=== PATIENT | male | born 1930 | race Caucasian/White ===

== ENCOUNTER 2017-09-03 14:24 | Emergency (ER) | payer OTHER ==
[~2017-09-03 14:24] MED LIST: ASPI325T PO; DONE5TAB7 PO; ENAL5TAB PO; GABA300C5 PO; PRAV40TA PO; TAMS5CAP PO; TIMO5SOL LEFT EYE
[2017-09-03 14:26] VITALS: BP 188/87; PULSE 78; RESP 18; TEMP 97.8; O2SAT 96
--- NOTE | 2017-09-03 14:39 | PD ---
Physical Exam Date Seen by Provider: Sep 03, 2017 Time Seen by Provider: 14:38 Narrative 86 yo male here for "bump" to his back. Bleeding per patient, no injury. No fevers, chills or sweats. has another one on the left ear he wants looked into. He has been "picking" at them. Vitals stable in triage. Awaiting bed placement. Data Data Last Documented VS Vital Signs Date Time Temp Pulse Resp B/P (MAP) Pulse Ox O2 Delivery O2 Flow Rate FiO2 09/03/17 14:26 97.8 78 18 188/87 (120) 96 Room Air [facility] Medical Record Reviewed: Yes Supervised Visit with APARNA: No Brian Cain Sep 03, 2017 14:39
[2017-09-03] MEDS ORDERED: TIMO0.5S30 LEFT EYE (14:46)
--- NOTE | 2017-09-03 14:49 | PD ---
HPI Chief Complaint: Skin Problem Time Seen by Provider: 14:44 Travel History International Travel<30 days: No Contact w/Intl Traveler<30days: No Traveled to known affect area: No History of Present Illness HPI 86-year-old male presents to the emergency department requesting evaluation of an area to his left mid back that occasionally bleeds when he catches on his shirt and requesting a skin lesion to his left ear to be cut off. He cannot verify how long either areas have been there. Says the lesions to his left ear bothers him when he sleeps. No known relieving factors. Denies fever, vomiting. Has no other medical complaints. [facility] is his primary care provider. No known allergies. No other modifying factors or associated signs and symptoms. PFSH Past Medical History Hx Anticoagulant Therapy: Yes (ASA) Anemia: Yes Arthritis: Yes Asthma: No Blood Disorders: No Bipolar Disorder: Yes Anxiety: No Depression: Yes Heart Rhythm Problems: Yes Cancer: No Cardiovascular Problems: Yes (HTN) High Cholesterol: Yes Chest Pain: No Congestive Heart Failure: No COPD: No Cerebrovascular Accident: Yes Dementia: Yes Diabetes: No Diminished Hearing: No Endocrine: No Gastrointestinal Disorders: Yes Genitourinary: Yes (UTI) Headaches: Yes Hepatitis: No Hiatal Hernia: No Hypertension: Yes Immune Disorder: No Musculoskeletal: Yes (2 BACK SURGERIES IN THE PAST.) Neurologic: No Psychiatric: No Reproductive: No Respiratory: No Immunizations Current: Yes Migraines: No Myocardial Infarction: No Seizures: No Sleep Apnea: No Thyroid Disease: No Ulcer: No Past Surgical History Appendectomy: No Cholecystectomy: Yes Other Surgery: Yes (BACK SURGERY <20 YEARS AGO) Social History Alcohol Use: No Tobacco Use: No Substance Use: No Allergies-Medications (Allergen,Severity, Reaction): Coded Allergies: No Known Allergies (Verified , 09/03/17) Reported Meds & Prescriptions Reported Meds & Active Scripts Active Reported Timolol Opth Drops 0.5 % Soln 1 Drop LEFT EYE BID Pravachol (Pravastatin) 40 Mg Tab 40 Mg PO DAILY Flomax (Tamsulosin HCl) 0.4 Mg Cap 0.4 Mg PO HS Gabapentin 300 Mg Cap 300 Mg PO HS Donepezil 5 Mg Tab 5 Mg PO HS Enalapril (Enalapril Maleate) 5 Mg Tab 5 Mg PO DAILY Aspirin 325 Mg Tab 325 Mg PO DAILY Review of Systems Except as stated in HPI: all other systems reviewed are Neg Physical Exam Narrative GENERAL: Well-nourished, well-developed elderly, male patient, in no acute distress; afebrile, nontoxic-appearing SKIN: Warm and dry. Left mid back with small scabbed area; without erythema, edema, drainage. Left ear pinna with less than 0.5 cm skin lesion that is without erythema, edema, drainage. HEAD: Atraumatic. Normocephalic. EYES: Pupils equal and round. No scleral icterus. No injection or drainage. ENT: Mucosa pink and moist. Airway patent. NECK: Trachea midline. CARDIOVASCULAR: Regular rate. RESPIRATORY: No accessory muscle use. GASTROINTESTINAL: Rounded. MUSCULOSKELETAL: No obvious deformities. No clubbing. No cyanosis. No edema. NEUROLOGICAL: Awake and alert. Oriented 3. No obvious cranial nerve deficits. Motor grossly within normal limits. Normal speech. PSYCHIATRIC: Appropriate mood and affect; insight and judgment normal. Data Data Last Documented VS Vital Signs Date Time Temp Pulse Resp B/P (MAP) Pulse Ox O2 Delivery O2 Flow Rate FiO2 09/03/17 14:26 97.8 78 18 188/87 (120) 96 Room Air MDM Medical Decision Making Medical Screen Exam Complete: Yes Emergency Medical Condition: Yes Medical Record Reviewed: Yes Differential Diagnosis Skin lesion, skin carcinoma, scab Narrative Course 86-year-old male physical exam consistent with a skin lesion of his left ear and a scab to his left mid back. Patient is afebrile and nontoxic-appearing. His primary care is [employer]. Instructed patient to follow up with dermatology. Instructed patient to follow up with primary care provider. Patient verbalizes understanding and agreement with treatment plan. Patient is medically cleared and stable for discharge. Discussed reasons to return to the emergency department. Patient agrees with treatment plan. The patients vital signs are stable and the patient is stable for outpatient follow-up and treatment. Patient discharged home, stable and in no acute distress. Diagnosis Primary Impression: Skin lesion of left ear Additional Impression: Scab Referrals: [facility] Primary Care Physician Patient Instructions: General Instructions Additional Instructions: Put a Band-Aid over the scab on your back to avoid it catching on your shirt and causing bleeding Follow-up with primary care provider Follow-up with dermatology Return to the emergency department immediately with worsening of symptoms Disposition: 01 DISCHARGE HOME Condition: Stable Shirlene Gallardo Sep 03, 2017 14:49
== END 2017-09-03 15:05 | disposition home or self-care (01) ==
LOC: NEPK 14:24
DX: L98.9 Disorder of the skin and subcutaneous tissue, unspecified (principal); R23.4 Changes in skin texture; D64.9 Anemia, unspecified; I10 Essential (primary) hypertension; M19.90 Unspecified osteoarthritis, unspecified site; E78.00 Pure hypercholesterolemia, unspecified; F03.90 Unspecified dementia, unspecified severity, without behavioral disturbance, psychotic disturbance, mood disturbance, and anxiety; Z86.73 Personal history of transient ischemic attack (TIA), and cerebral infarction without residual deficits; Z79.82 Long term (current) use of aspirin
CPT/HCPCS: 99282

== ENCOUNTER 2017-12-14 18:06 | Inpatient (IN) | payer OTHER, MEDICARE ==
[~2017-12-14] VITALS: Ht 175.3 cm; Wt 73.3 kg
[~2017-12-14 18:06] MED LIST changes: +ASPI-183 PO; -ASPI325T PO; +TIMO0.5S30 LEFT EYE; -TIMO5SOL LEFT EYE
[2017-12-14 18:37] VITALS: BP 150/90; PULSE 110; RESP 16; TEMP 99.1; O2SAT 96
[2017-12-14] MEDS ORDERED: FERR325T18 PO (19:39)
[2017-12-14] MEDS ORDERED: DOCO300C (19:39)
[2017-12-14] MEDS ORDERED: OMEP20TA93 PO (19:39)
[2017-12-14 19:41] VITALS: BP 107/59; PULSE 102; RESP 16; O2SAT 96
--- NOTE | 2017-12-14 20:03 | PD ---
HPI Chief Complaint: General Weakness Time Seen by Provider: 19:50 Travel History International Travel<30 days: No Contact w/Intl Traveler<30days: No Traveled to known affect area: No History of Present Illness HPI The patient is an 87 year old male who presents to the [facility] emergency department with a history of generalized weakness and nausea that he reports began yesterday. He reports that he has had a mild nonproductive cough that began today. He reports that he last moved his bowels earlier today. He reports that today he began to have pain in the center of his abdomen. He reports that it is a dull aching sensation that is constant. He denies any alleviating or aggravating factors. He denies having any dysuria, change in urinary frequency or urgency. He is unsure whether he's had any fevers. He denies having any chest pain or shortness of breath. He denies having any blood in his stool or black or tarry stools. Otherwise on review of systems, the patient denies having any neck pain, vomiting, diarrhea, one-sided weakness , slurred speech, facial droop, difficulty with word finding ability, or dizziness. [facility] Past Medical History Narrative Medical The patient's past medical history is significant for hypertension, hyperlipidemia, benign prostatic hypertrophy, acid reflux, bipolar disorder, history of cataracts. Hx Anticoagulant Therapy: Yes (ASA) Anemia: Yes Arthritis: Yes Asthma: No Blood Disorders: No Bipolar Disorder: Yes Anxiety: No Depression: Yes Heart Rhythm Problems: Yes Cancer: No Cardiovascular Problems: Yes (HTN) High Cholesterol: Yes Chest Pain: No Congestive Heart Failure: No COPD: No Cerebrovascular Accident: Yes Dementia: Yes Diabetes: No Diminished Hearing: No Endocrine: No Gastrointestinal Disorders: Yes Genitourinary: Yes (UTI) Headaches: Yes Hepatitis: No Hiatal Hernia: No Hypertension: Yes Immune Disorder: No Musculoskeletal: Yes (2 BACK SURGERIES IN THE PAST.) Neurologic: No Psychiatric: No Reproductive: No Respiratory: No Immunizations Current: Yes Migraines: No Myocardial Infarction: No Seizures: No Sleep Apnea: No Thyroid Disease: No Ulcer: No Past Surgical History Narrative Surgical The patient's past surgical history is significant for cataract surgery. Appendectomy: No Cholecystectomy: Yes Other Surgery: Yes (BACK SURGERY <20 YEARS AGO) Social History Alcohol Use: No Tobacco Use: No Substance Use: No Allergies-Medications (Allergen,Severity, Reaction): Coded Allergies: No Known Allergies (Verified Adverse Reaction, Unknown, 12/14/17) Reported Meds & Prescriptions Reported Meds & Active Scripts Active Reported Dha Algal-900 (Docosahexaenoic Acid) 300 Mg Cap Ferrous Sulfate 325 Mg (65 Mg Iron) Tablet 325 Mg PO BIDPC Omeprazole 20 Mg Tab 20 Mg PO DAILY Timolol Opth Drops 0.5 % Soln 1 Drop LEFT EYE BID Pravachol (Pravastatin) 40 Mg Tab 40 Mg PO DAILY Flomax (Tamsulosin HCl) 0.4 Mg Cap 0.4 Mg PO HS Enalapril (Enalapril Maleate) 5 Mg Tab 5 Mg PO DAILY Aspirin 325 Mg Tab 325 Mg PO DAILY Review of Systems Except as stated in HPI: all other systems reviewed are Neg General / Constitutional: No: Fever Eyes: No: Visual changes HENT: No: Headaches Cardiovascular: No: Chest Pain or Discomfort Respiratory: Positive: Cough, No: Shortness of Breath Gastrointestinal: Positive: Nausea, Abdominal Pain, Loss of Appetite, No: Vomiting, Diarrhea, Hematemesis, Hematochezia, Constipation, Changes in Bowel Habits, Indigestion Genitourinary: No: Dysuria Musculoskeletal: No: Pain Skin: No Rash Neurologic: Positive: Weakness (generalized weakness), No: Focal Abnormalities , Headache, Change in Mentation, Slurred Speech, Sensory Disturbance Psychiatric: No: Depression Endocrine: No: Polydipsia Hematologic/Lymphatic: No: Easy Bruising Physical Exam Narrative General: The patient is a well-developed well-nourished male in no acute distress. Head and Neck exam: Head is normocephalic atraumatic. Eyes: EOMI, pupils are equal round and reactive to light. Nose: Midline septum with pink mucous membranes Mouth: Dentition unremarkable. Moist mucus membranes. Posterior oropharynx is not erythematous. No tonsillar hypertrophy. Uvula midline. Airway patent. Neck: No palpable lymphadenopathy. No nuchal rigidity. No thyromegaly. Cardiovascular: Sinus tachycardia in the low 100 without murmurs, gallops, or rubs. No pulse deficit to the extremities on simultaneous auscultation and palpation of his radial artery. Lungs: Clear to auscultation bilaterally. No wheezes, rhonchi, or rales. Abdomen: Soft, tenderness reported in the midepigastric area and suprapubic area on palpation, no other tenderness on palpation of the other quadrants of the abdomen. No guarding, rebound, or rigidity. Normal bowel sounds are audible. No tenderness on palpation of McBurney's point. Negative [place]'s sign. Extremities: No clubbing, cyanosis, or edema. 2+ pulses in all 4 extremities. No calf tenderness on palpation. Back: No costovertebral angle tenderness to palpation. Neurologic Exam: Grossly nonfocal. Skin Exam: No rash noted. Intact skin that is warm and dry. Data Data Last Documented VS Vital Signs Date Time Temp Pulse Resp B/P (MAP) Pulse Ox O2 Delivery O2 Flow Rate FiO2 12/14/17 19:41 102 16 107/59 (75) 96 Room Air 12/14/17 18:37 99.1 2.00 Orders Orders Electrocardiogram (12/14/17 20:03) Complete Blood Count With Diff (12/14/17 20:03) Comprehensive Metabolic Panel (12/14/17 20:03) Creatine Kinase (Cpk) (12/14/17 20:03) Ckmb (Isoenzyme) Profile (12/14/17 20:03) Troponin I (12/14/17 20:03) B-Type Natriuretic Peptide (12/14/17 20:03) Prothrombin Time / Inr (Pt) (12/14/17 20:03) Act Partial Throm Time (Ptt) (12/14/17 20:03) Blood Culture (12/14/17 20:03) C-Reactive Protein (Crp) (12/14/17 20:03) Lipase (12/14/17 20:03) Urinalysis - C+S If Indicated (12/14/17 20:03) Magnesium (Mg) (12/14/17 20:03) Influenzae A/B Antigen (12/14/17 20:03) Chest, Single Ap (12/14/17 20:03) Iv Access Insert/Monitor (12/14/17 20:03) Ecg Monitoring (12/14/17 20:03) Oximetry (12/14/17 20:03) Lactic Acid Sepsis Protocol (12/14/17 20:03) Sodium Chlorid 0.9% 500 Ml Inj (Ns 500 M (12/14/17 20:15) Ondansetron Inj (Zofran Inj) (12/14/17 20:15) CKMB (12/14/17 20:05) CKMB% (12/14/17 20:05) Aspirin Chew (Aspirin Chew) (12/14/17 21:15) Nitroglycerin 2% Oint (Nitroglycerin 2% (12/14/17 21:15) Sodium Chlorid 0.9% 500 Ml Inj (Ns 500 M (12/14/17 21:45) Heparin Inj (Heparin Inj) (12/14/17 22:00) Heparin-D5w 25,000 U/250 Ml (Heparin-D5w (12/14/17 22:00) Act Partial Throm Time (Ptt) (12/14/17 22:00) Prothrombin Time / Inr (Pt) (12/14/17 22:00) Cbc No Diff, Includes Plts (12/14/17 22:00) Cbc No Diff, Includes Plts (12/17/17 06:00) Act Partial Throm Time (Ptt) (12/15/17 05:00) Occult Blood (Hemoccult) Stool (12/14/17 22:00) Sodium Chlor 0.9% 1000 Ml Inj (Ns 1000 M (12/14/17 22:00) Sodium Chlor 0.9% 1000 Ml Inj (Ns 1000 M (12/14/17 22:00) Sodium Chlor 0.9% 1000 Ml Inj (Ns 1000 M (12/14/17 22:00) Admit Order (Ed Use Only) (12/14/17 22:01) Labs Laboratory Tests Test 12/14/17 20:05 12/14/17 20:35 White Blood Count 15.8 TH/MM3 Red Blood Count 4.08 MIL/MM3 Hemoglobin 12.5 GM/DL Hematocrit 36.9 % Mean Corpuscular Volume 90.3 FL Mean Corpuscular Hemoglobin 30.7 PG Mean Corpuscular Hemoglobin Concent 34.0 % Red Cell Distribution Width 14.2 % Platelet Count 180 TH/MM3 Mean Platelet Volume 8.3 FL Neutrophils (%) (Auto) 88.0 % Lymphocytes (%) (Auto) 5.4 % Monocytes (%) (Auto) 6.4 % Eosinophils (%) (Auto) 0.0 % Basophils (%) (Auto) 0.2 % Neutrophils # (Auto) 13.9 TH/MM3 Lymphocytes # (Auto) 0.8 TH/MM3 Monocytes # (Auto) 1.0 TH/MM3 Eosinophils # (Auto) 0.0 TH/MM3 Basophils # (Auto) 0.0 TH/MM3 CBC Comment DIFF FINAL Differential Comment Prothrombin Time 11.7 SEC Prothromb Time International Ratio 1.2 RATIO Activated Partial Thromboplast Time 22.1 SEC Blood Urea Nitrogen 30 MG/DL Creatinine 1.87 MG/DL Random Glucose 223 MG/DL Total Protein 6.7 GM/DL Albumin 2.9 GM/DL Calcium Level 8.6 MG/DL Magnesium Level 1.9 MG/DL Alkaline Phosphatase 83 U/L Aspartate Amino Transf (AST/SGOT) 28 U/L Alanine Aminotransferase (ALT/SGPT) 15 U/L Total Bilirubin 1.2 MG/DL Sodium Level 139 MEQ/L Potassium Level 4.1 MEQ/L Chloride Level 106 MEQ/L Carbon Dioxide Level 22.0 MEQ/L Anion Gap 11 MEQ/L Estimat Glomerular Filtration Rate 34 ML/MIN Total Creatine Kinase 213 U/L Creatine Kinase MB 1.8 NG/ML Troponin I 1.37 NG/ML C-Reactive Protein 17.00 MG/DL B-Type Natriuretic Peptide 660 PG/ML Lipase 57 U/L Lactic Acid Level 3.2 mmol/L MDM Medical Decision Making Medical Screen Exam Complete: Yes Emergency Medical Condition: Yes Medical Record Reviewed: Yes Interpretation(s) Last Impressions Chest X-Ray 12/14/172002 Signed Impressions: Service Date/Time: Thursday, December 14, 2017 20:54 - CONCLUSION: No evidence of acute cardiopulmonary disease. Alexander Mariano MD Differential Diagnosis Sepsis related to urinary tract infection, versus pneumonia, versus influenza, versus acute coronary syndrome with generalized weakness, versus electrolyte derangements, versus dehydration Narrative Course During the course of the patients emergency department visit, the patients history, examination, and differential diagnosis were reviewed with the patient. The patient was placed on a research quality assurance specialist with oximetry and frequent blood pressure monitoring. The patient had IV access obtained and blood work sent for analysis. An ECG shows a sinus rhythm heart rate of 94, left bundle branch block is noted. This is compared to his prior EKGs done at this facility and the patient does have a history of left bundle branch block noted and an ECG done in 2010. The patient was initially provided normal saline a 500 mL bolus, Zofran 4 mg IV. The patients laboratory studies were reviewed and remarkable for white count of 15.8, hemoglobin 12.5, platelets 180 with 88 neutrophils, lymphocytes 5.4, CMP is remarkable for a BUN of 30, creatinine 1.87, glucose 223, total bilirubin 1.2 , CPK 213, troponin I 1.37, C-reactive protein 17, lipase 57, PT 11.7, PTT 22.1 , urinalysis shows 100 protein and large leukocyte Estrace 14 RBCs innumerable WBCs, many bacteria. Radiology studies were reviewed and remarkable for no evidence of acute cardiopulmonary disease. The patient was given Rocephin 1 g IV, aspirin 324 mg by mouth 1, normal saline a 500 mL bolus 1, Zofran 4 mg IV, nitroglycerin 1 inch of paste to the chest wall. Given the patient's elevated troponin and concern for a non-STEMI the patient was started on heparin per [place] protocol. The patients results were discussed with the patient, including the plan of care. I explained that further testing and/ or monitoring is indicated based on the patients history, examination, and/ or laboratory findings. Therefore, I recommended admission for additional evaluation. The patient expressed understanding and was agreeable with this plan. The patient was admitted to the hospital in guarded condition and [facility] Critical Care Narrative Aggregate critical care time was 33 minutes. Time to perform other separately billable procedures was not included in the critical care time. My time did not include minutes spent treating any other patients simultaneously or on activities that did not directly contribute to the patient's treatment. The services I provided to this patient were to treat and/or prevent clinically significant deterioration that could result in: Cardiovascular collapse from over resuscitation with crystalloid, versus cardiogenic shock from non-STEMI, versus hypotension from sepsis I provided critical care services requiring my management, as noted below: Chart data review, documentation time, medication orders and management, vital sign assessments/reviewing monitor data, ordering and reviewing lab tests, ordering and interpreting/reviewing x-rays and diagnostic studies, care of the patient and discussion of the patient with the admitting physicians. Sepsis Criteria SIRS Criteria (2 or more): Heart rate over 90, WBC > 94564, < 4000 or > 10% bands Sepsis Criteria (SIRS+source): Infect source susp/known Criteria Outcome: Meets SIRS criteria, Meets sepsis criteria Physician Communication Physician Communication The patient's case including history, pertinent physical examination findings, and laboratory studies were discussed with . It was agreed that the [facility] Diagnosis Primary Impression: Generalized weakness Additional Impressions: Nausea NSTEMI (non-ST elevated myocardial infarction) UTI (urinary tract infection) Qualified Codes: N39.0 - Urinary tract infection, site not specified; R31.9 - Hematuria, unspecified Sepsis Qualified Codes: A41.9 - Sepsis, unspecified organism Admitting Information Admitting Physician Requests: uJliet Patel MD Dec 14, 2017 20:03
[2017-12-14] MEDS ORDERED: SODIUM CHLORID 0.9% 500 ML INJ 500 ML IV ONE ×2 (20:15→21:45)
[2017-12-14] MEDS ORDERED: ONDANSETRON HCL 4 MG/2 ML VIAL IV ONE (20:15)
[2017-12-14 20:31] LABS: AUTOMATED NEUTROPHIL # 13.9 TH/MM3 (1.8-7.7); BASOPHIL % 0.2 % (0.0-2.0); HEMATOCRIT 36.9 % (39.0-51.0); HEMOGLOBIN 12.5 GM/DL (13.0-17.0); LYMPH % 5.4 % (9.0-44.0); LYMPHOCYTE # 0.8 TH/MM3 (1.0-4.8); MEAN CELL VOLUME 90.3 FL (80.0-100.0); MEAN CORPUSCULAR HEMOGLOBIN 30.7 PG (27.0-34.0); MEAN PLATELET VOLUME 8.3 FL (7.0-11.0); MONO % 6.4 % (0.0-8.0); PLATELET COUNT 180 TH/MM3 (150-450); RED BLOOD COUNT 4.08 MIL/MM3 (4.50-5.90); RED CELL DISTRIBUTION WIDTH 14.2 % (11.6-17.2); WHITE BLOOD COUNT 15.8 TH/MM3 (4.0-11.0)
[2017-12-14 20:50] LABS: INTERNATIONAL NORMALIZED RATIO 1.2 RATIO; PROTHROMBIN TIME - PATIENT 11.7 SEC (9.8-11.6)
[2017-12-14 20:53] LABS: ALT (GPT) 15 U/L (12-78)
[2017-12-14 21:01] LABS: ALBUMIN 2.9 GM/DL (3.4-5.0); ALKALINE PHOSPHATASE 83 U/L (45-117); AST (GOT) 28 U/L (15-37); BLOOD UREA NITROGEN 30 MG/DL (7-18); CALCIUM 8.6 MG/DL (8.5-10.1); CHLORIDE 106 MEQ/L (98-107); CREATININE 1.87 MG/DL (0.60-1.30); GLOMERULAR FILTRATION RATE 34 ML/MIN (>89); GLUCOSE,RANDOM 223 MG/DL (74-106); LIPASE 57 U/L (73-393); MAGNESIUM 1.9 MG/DL (1.5-2.5); SODIUM (NA) 139 MEQ/L (136-145); TOTAL BILIRUBIN ADULT 1.2 MG/DL (0.2-1.0); TOTAL PROTEIN 6.7 GM/DL (6.4-8.2)
[2017-12-14 21:03] LABS: TROPONIN I 1.37 NG/ML (0.02-0.05)
[2017-12-14 21:08] LABS: LACTIC ACID SEPSIS PROTOCOL 3.2 mmol/L (0.4-2.0)
[2017-12-14] MEDS ORDERED: NITROGLYCERIN 2% OINT 1 GM PACKET TOPICAL ONE (21:15)
[2017-12-14] MEDS ORDERED: ASPIRIN 81 MG CHEW TAB CHEW ONE (21:15)
--- NOTE | 2017-12-14 21:19 | RADRPT ---
EXAM DATE/TIME: 12/14/2017 20:54 [facility] COMPARISON: CHEST SINGLE AP, March 18, 2016, 17:09. INDICATIONS : Cough MEDICAL HISTORY : Hypertension. Asthma. SURGICAL HISTORY : None. ENCOUNTER: Initial ACUITY: 1 day PAIN SCORE: 0/10 LOCATION: Bilateral chest FINDINGS: A single view of the chest demonstrates the lungs to be symmetrically aerated without evidence of mas s, infiltrate or effusion. The cardiomediastinal contours are unremarkable. Osseous structures are intact. CONCLUSION: No evidence of acute cardiopulmonary disease. Alexander Mariano MD on December 14, 2017 at 21:16 Board Certified Radiologist. This report was verified electronically.
[2017-12-14] MEDS ORDERED: HEPARIN SODIUM - IV 10,000 UNITS/10 ML VIAL IV ONE (22:00)
[2017-12-14] MEDS ORDERED: SODIUM CHLOR 0.9% 1000 ML INJ 1,000 ML IV ONE ×2 (22:00)
[2017-12-14] MEDS ORDERED: cefTRIAXone INJ 1,000 MG in SODIUM CHLORIDE 0.9% INJ 100 ML IV SCH (22:00)
[2017-12-14] MEDS ORDERED: SODIUM CHLOR 0.9% 1000 ML INJ 100 ML IV ONE (22:00)
[2017-12-14] MEDS ORDERED: SODIUM CHLOR 0.9% 1000 ML INJ 1,000 ML IV SCH (22:06)
--- NOTE | 2017-12-14 22:09 | HHI.HP ---
[facility] Unknown Admission Diagnosis Sepsis, Non-STEMI Diagnoses: (1) NSTEMI (non-ST elevated myocardial infarction) Diagnosis: Principal (2) Sepsis Diagnosis: Principal (3) UTI (urinary tract infection) Diagnosis: Principal (4) STEVEN (acute kidney injury) Diagnosis: Principal (5) Elevated brain natriuretic peptide (BNP) level Diagnosis: Principal (6) Hyperglycemia Diagnosis: Principal Travel History International Travel<30 Days: No Contact w/Intl Traveler <30 Da: No Traveled to Known Affected Are: No History of Present Illness This is an 87-year-old male with a PMH of Depression, Bipolar Disorder, BPH, HTN and Hyperlipidemia who presented to the ER with complaints of generalized weakness x1 day. Today, symptoms progressively worse, associated w/ few episodes of nausea/vomiting. Also notes abdominal pain, generalized, intermittent, 6/10, non-radiating. Denies fever, chills, chest pain or sick contacts. On arrival, BP 150/90, HR 110, O2 sat 96% on 2L NC, Temp 99.1. WBC 15.8. Creatinine 1.87. BS 223. Lactic Acid 3.2. Troponin 1.37. In P6 60. INR 1.2. UA positive for UTI. CXR with no acute findings. Started on Heparin gtt in ER. Review of Systems Except as stated in HPI: all other systems reviewed are Neg ROS: 14 point review of systems otherwise negative. Past Family Social History Past Medical History PMH: Depression, Bipolar Disorder, BPH, HTN and Hyperlipidemia Past Surgical History PAST SURGICAL HISTORY: Back Surgery, Cholecystectomy, Cataract Surgery Allergies: Coded Allergies: No Known Allergies (Verified Adverse Reaction, Unknown, 12/14/17) Family History PAST FAMILY HISTORY: Reviewed. No h/o DM or CAD Social History PAST SOCIAL HISTORY: Negative for alcohol, tobacco or drugs. Physical Exam Vital Signs Vital Signs Date Time Temp Pulse Resp B/P (MAP) Pulse Ox O2 Delivery O2 Flow Rate FiO2 12/14/17 19:41 102 16 107/59 (75) 96 Room Air 12/14/17 18:37 99.1 110 16 150/90 (110) 96 Room Air 2.00 Physical Exam PE: GENERAL: Very pleasant elderly Kiswahili male in no acute distress. HEENT: PERRLA, EOMI. No scleral icterus or conjunctival pallor. No lid lag or facial droop. CARDIOVASCULAR: Regular rate and rhythm. No obvious murmurs to auscultation. No chest tenderness to palpation. RESPIRATORY: No obvious rhonchi or wheezing. Clear to auscultation. Breath sounds equal bilaterally. GASTROINTESTINAL: Abdomen soft, mild epigastric tenderness palpation, nondistended. BS normal. MUSCULOSKELETAL: Extremities without clubbing, cyanosis, or edema. No obvious deformities. NEUROLOGICAL: Awake, alert and oriented x4. No focal neurologic deficits. Moving both upper and lower extremities spontaneously. Laboratory Laboratory Tests Test 12/14/17 20:05 12/14/17 20:35 White Blood Count 15.8 Red Blood Count 4.08 Hemoglobin 12.5 Hematocrit 36.9 Mean Corpuscular Volume 90.3 Mean Corpuscular Hemoglobin 30.7 Mean Corpuscular Hemoglobin Concent 34.0 Red Cell Distribution Width 14.2 Platelet Count 180 Mean Platelet Volume 8.3 Neutrophils (%) (Auto) 88.0 Lymphocytes (%) (Auto) 5.4 Monocytes (%) (Auto) 6.4 Eosinophils (%) (Auto) 0.0 Basophils (%) (Auto) 0.2 Neutrophils # (Auto) 13.9 Lymphocytes # (Auto) 0.8 Monocytes # (Auto) 1.0 Eosinophils # (Auto) 0.0 Basophils # (Auto) 0.0 CBC Comment DIFF FINAL Differential Comment Prothrombin Time 11.7 Prothromb Time International Ratio 1.2 Activated Partial Thromboplast Time 22.1 Blood Urea Nitrogen 30 Creatinine 1.87 Random Glucose 223 Total Protein 6.7 Albumin 2.9 Calcium Level 8.6 Magnesium Level 1.9 Alkaline Phosphatase 83 Aspartate Amino Transf (AST/SGOT) 28 Alanine Aminotransferase (ALT/SGPT) 15 Total Bilirubin 1.2 Sodium Level 139 Potassium Level 4.1 Chloride Level 106 Carbon Dioxide Level 22.0 Anion Gap 11 Estimat Glomerular Filtration Rate 34 Total Creatine Kinase 213 Creatine Kinase MB 1.8 Troponin I 1.37 C-Reactive Protein 17.00 B-Type Natriuretic Peptide 660 Lipase 57 Lactic Acid Level 3.2 Date/Time Source Procedure Growth Status 12/14/17 20:35 Blood Peripheral Aerobic Blood Culture Pending Received 12/14/17 20:35 Blood Peripheral Anaerobic Blood Culture Pending Received 12/14/17 20:35 Nasal Aspirate Influenza Types A,B Antigen (LESLIE) - Final NEGATIVE FOR FLU A AND B ANTIGEN.... Complete Result Diagram: 12/14/17200412/14/[address] [facility] Caprin VTE Risk Assessment: Mod/High Risk (score >= 2) Caprini Risk Assessment Model Point Value = 1 Point Value = 2 Point Value = 3 Point Value = 5 Age 41-60 Minor surgery BMI > 25 kg/m2 Swollen legs Varicose veins or History of unexplained or recurrent spontaneous Oral contraceptives or hormone replacement Sepsis (< 1 month) Serious lung disease, including pneumonia (< 1 month) Abnormal pulmonary function Acute myocardial infarction Congestive heart failure (< 1 month) History of inflammatory bowel disease Medical patient at bed rest Age 61-74 Arthroscopic surgery Major open surgery (> 45 min) Laparoscopic surgery (> 45 min) Malignancy Confined to bed (> 72 hours) Immobilizing plaster cast Central venous access Age >= 75 History of VTE Family history of VTE Factor V Leiden Prothrombin [id number] Lupus anticoagulant Anticardiolipin antibodies Elevated serum homocysteine Heparin-induced thrombocytopenia Other congenital or acquired thrombophilia Stroke (< 1 month) Elective arthroplasty Hip, pelvis, or leg fracture Acute spinal cord injury (< 1 month) Prophylaxis Regimen Total Risk Factor Score Risk Level Prophylaxis Regimen 0-1 Low Early ambulation 2 Moderate Order ONE of the following: *Sequential Compression Device (SCD) *Heparin 5000 units SQ BID 3-4 Higher Order ONE of the following medications: *Heparin 5000 units SQ TID *Enoxaparin/Lovenox 40 mg SQ daily (WT < 150 kg, CrCl > 30 mL/min) *Enoxaparin/Lovenox 30 mg SQ daily (WT < 150 kg, CrCl > 10-29 mL/min) *Enoxaparin/Lovenox 30 mg SQ BID (WT < 150 kg, CrCl > 30 mL/min) AND/OR *Sequential Compression Device (SCD) 5 or more Highest Order ONE of the following medications: *Heparin 5000 units SQ TID (Preferred with Epidurals) *Enoxaparin/Lovenox 40 mg SQ daily (WT < 150 kg, CrCl > 30 mL/min) *Enoxaparin/Lovenox 30 mg SQ daily (WT < 150 kg, CrCl > 10-29 mL/min) *Enoxaparin/Lovenox 30 mg SQ BID (WT < 150 kg, CrCl > 30 mL/min) AND *Sequential Compression Device (SCD) Assessment and Plan Problem List: (1) NSTEMI (non-ST elevated myocardial infarction) ICD Code: I21.4 - Non-ST elevation (NSTEMI) myocardial infarction (2) Sepsis ICD Code: A41.9 - Sepsis, unspecified organism (3) UTI (urinary tract infection) ICD Code: N39.0 - Urinary tract infection, site not specified (4) STEVEN (acute kidney injury) ICD Code: N17.9 - Acute kidney failure, unspecified (5) Hyperglycemia ICD Code: R73.9 - Hyperglycemia, unspecified (6) Elevated brain natriuretic peptide (BNP) level ICD Code: R79.89 - Other specified abnormal findings of blood chemistry Assessment and Plan A/P: 1. NSTEMI: Trop 1.37, EKG w/ no acute ischemia, LBBB chronic. No c/o chest pain. Admit to [facility], Telemetry, check serial cardiac enzymes for trend. Check Lipid Profile, Hgb A1c. NTG/Morphine prn. Heparin gtt, Consult Cardiology for further evaluation/intervention. 2. Sepsis: Temp 99.1, HR 110, WBC 15.8, Lactic Acid 3.2, Source-UTI. S/p Blood Cultures, start Rocephin IV, IVF for hydration-caution w/ possible overload. Follow up cultures. Repeat Lactic Acid. 3. UTI: U/a w/ UTI, likely causing generalized weakness, follow up cultures, continue IV Abx. 4. Hyperglycemia: BS 223, no reported h/o DM, not on antihyperglycemic medications per review of medication list. Check Hgb A1c, Sliding scale w/ Accu -Cheks. 5. Elevated BNP: BNP 660, no h/o CHF. CXR w/ no acute findings, images reviewed by me. Check Echo to eval for heart failure, possibly triggered by acute ischemia or sepsis. 6. DVT Prophylaxis: Heparin gtt 7. Social work for d/c planning as needed. 8. Case discussed at length w/ ER physician, labs/records/imaging reviewed by me. Physician Certification 2 Midnight Certification Type: Admission for Inpatient Services Order for Inpatient Services The services are ordered in accordance with Medicare regulations or non- Medicare payer requirements, as applicable. In the case of services not specified as inpatient-only, they are appropriately provided as inpatient services in accordance with the 2-midnight benchmark. Estimated LOS (days): 2 days is the estimated time the patient will need to remain in the hospital, assuming treatment plan goals are met and no additional complications. Post-Hospital Plan: Not yet determined Shruti Francisco MD Dec 14, 2017 22:09
[2017-12-14] MEDS ORDERED: LACTULOSE SYRUP 20 GM/30 ML CUP PO PRN (22:15)
[2017-12-14] MEDS ORDERED: MAGNESIUM HYDROXIDE SUSP 30 ML CUP PO PRN (22:15)
[2017-12-14] MEDS ORDERED: ACETAMINOPHEN/HYDROcodone 325 MG/5 MG TAB PO PRN (22:15)
[2017-12-14] MEDS ORDERED: MORPHINE SULFATE 2 MG/ML INJ IV PUSH PRN (22:15)
[2017-12-14] MEDS ORDERED: SENNOSIDES 8.6 MG TAB PO PRN (22:15)
[2017-12-14] MEDS ORDERED: SODIUM CHLORIDE 0.9% FLUSH 10 ML FLUSH IV FLUSH PRN (22:15)
[2017-12-14] MEDS ORDERED: BISACODYL 10 MG SUPP RECTAL PRN (22:15)
[2017-12-14] MEDS ORDERED: ONDANSETRON HCL 4 MG/2 ML VIAL IVP PRN (22:15)
[2017-12-14 22:54] LABS: HEMATOCRIT 40.4 % (39.0-51.0); HEMOGLOBIN 13.6 GM/DL (13.0-17.0); MEAN CELL VOLUME 91.6 FL (80.0-100.0); MEAN CORPUSCULAR HEMOGLOBIN 30.9 PG (27.0-34.0); MEAN CORPUSCULAR HGB CONC 33.7 % (32.0-36.0); MEAN PLATELET VOLUME 8.6 FL (7.0-11.0); PLATELET COUNT 203 TH/MM3 (150-450); RED BLOOD COUNT 4.41 MIL/MM3 (4.50-5.90); RED CELL DISTRIBUTION WIDTH 14.4 % (11.6-17.2); WHITE BLOOD COUNT 20.6 TH/MM3 (4.0-11.0)
[2017-12-14 23:02] VITALS: BP 132/61; PULSE 100; RESP 16; O2SAT 96
[2017-12-14 23:04] LABS: INTERNATIONAL NORMALIZED RATIO 1.1 RATIO; PROTHROMBIN TIME - PATIENT 11.5 SEC (9.8-11.6)
[2017-12-14 23:04] LABS: AMORPHOUS SEDIMENT, URINE RARE; BACTERIA, URINE MANY /hpf; BILIRUBIN, URINE NEG (NEG); BLOOD, URINE MOD (NEG); GLUCOSE,URINE NEG (NEG); KETONE, URINE NEG (NEG); NITRITE,URINE NEG (NEG); SQUAMOUS EPITHELIAL CELL URINE 6 /hpf (0-5); URINE COLOR YELLOW (YELLW/STRAW); URINE LEUKOCYTE ESTERASE LARGE (NEG)
[2017-12-14] MEDS: HEPARIN-D5W 25,000 U/250 ML 250 ML IV PRN (23:13)
[2017-12-15] VITALS (22 sets, daily range): BP systolic 92–148; BP diastolic 48–68; PULSE 86–130; RESP 18–20; TEMP 98–100.9; O2SAT 94–97
[2017-12-15] MEDS ORDERED: GLUCAGON 1 MG/ML VIAL OTHER PRN (00:15)
[2017-12-15] MEDS ORDERED: DEXTROSE 50% IN WATER 50 ML VIAL(D50) IV PUSH PRN (00:15)
[2017-12-15] MEDS ORDERED: NITROGLYCERIN 2% OINT 1 GM PACKET TOPICAL PRN (00:15)
[2017-12-15] MEDS ORDERED: RESP: ALBUTEROL 2.5 MG/IPRATROPIUM 0.5 MG NEB (PRN) NEB (00:30)
[2017-12-15] MEDS ORDERED: FUROSEMIDE 20 MG/2 ML VIAL IV PUSH ONE (00:30)
[2017-12-15 06:08] LABS: AUTOMATED NEUTROPHIL # 11.7 TH/MM3 (1.8-7.7); BASOPHIL % 0.1 % (0.0-2.0); HEMATOCRIT 32.6 % (39.0-51.0); HEMOGLOBIN 11.1 GM/DL (13.0-17.0); LYMPH % 6.1 % (9.0-44.0); LYMPHOCYTE # 0.8 TH/MM3 (1.0-4.8); MEAN CELL VOLUME 90.9 FL (80.0-100.0); MEAN CORPUSCULAR HEMOGLOBIN 30.9 PG (27.0-34.0); MONO % 8.7 % (0.0-8.0); MONOCYTE # 1.2 TH/MM3 (0-0.9); NEUT % 85.1 % (16.0-70.0); PLATELET COUNT 161 TH/MM3 (150-450); RED BLOOD COUNT 3.58 MIL/MM3 (4.50-5.90); RED CELL DISTRIBUTION WIDTH 14.3 % (11.6-17.2); WHITE BLOOD COUNT 13.8 TH/MM3 (4.0-11.0)
[2017-12-15 06:32] LABS: ALBUMIN 2.4 GM/DL (3.4-5.0); ALKALINE PHOSPHATASE 68 U/L (45-117); ALT (GPT) 12 U/L (12-78); AST (GOT) 21 U/L (15-37); BICARBONATE 21.8 MEQ/L (21.0-32.0); BLOOD UREA NITROGEN 31 MG/DL (7-18); CALCIUM 7.7 MG/DL (8.5-10.1); CHLORIDE 110 MEQ/L (98-107); CHOLESTEROL 85 MG/DL (120-200); CHOLESTEROL/ HDL RATIO 2.61 RATIO; CREATININE 1.73 MG/DL (0.60-1.30); GLOMERULAR FILTRATION RATE 37 ML/MIN (>89); GLUCOSE,RANDOM 129 MG/DL (74-106); HDL CHOLESTEROL 32.5 MG/DL (40.0-60.0); LDL CHOLESTEROL 37 MG/DL (0-99); SODIUM (NA) 141 MEQ/L (136-145); TOTAL BILIRUBIN ADULT 0.7 MG/DL (0.2-1.0); TOTAL PROTEIN 5.3 GM/DL (6.4-8.2); TRIGLYCERIDES 80 MG/DL (42-150)
[2017-12-15 06:41] LABS: TROPONIN I 1.68 NG/ML (0.02-0.05)
[2017-12-15] MEDS: PRAVASTATIN SOD 40 MG TAB PO SCH (08:00)
[2017-12-15] MEDS: PANTOPRAZOLE SOD 20 MG DELAYED RELEASE TAB PO SCH (08:00)
[2017-12-15] MEDS: INSULIN ASPART SUPPLEMENTAL SCALE SQ SCH ×4 (08:00→21:24)
[2017-12-15] MEDS: ASPIRIN 325 MG TAB PO SCH (08:01)
[2017-12-15] MEDS: SODIUM CHLORIDE 0.9% FLUSH 10 ML FLUSH IV FLUSH SCH ×2 (08:01→21:11)
[2017-12-15] MEDS: DOCUSATE SODIUM 50 MG/SENNA 8.6 MG TAB PO SCH ×2 (08:01→21:10)
[2017-12-15] MEDS: FERROUS SULFATE 325 MG (65 MG ELEMENTAL IRON) TAB PO SCH ×2 (08:01→18:00)
[2017-12-15 08:28] LABS: HEMOGLOBIN A1C 5.6 % (4.3-6.0)
--- NOTE | 2017-12-15 09:47 | PD.CONS ---
HPI Consult Requested By Primary Care Physician Unknown History of Present Illness 87-year-old male with a PMH of Depression, Bipolar Disorder, BPH, HTN and Hyperlipidemia who presented to the ER with complaints of generalized weakness x1 day. Today, symptoms progressively worse, associated w/ few episodes of nausea/vomiting, abdominal pain, generalized, intermittent, 6/10, non- radiating. Denies fever, chills, chest pain or sick contacts. Temp 99.1 UA positive for UTI. Consulted for elevated troponin. Started on Heparin gtt in ER. Review of Systems Consitutional: COMPLAINS OF: Fatigue, DENIES: Fever, Chills, Weight gain, Weight loss Eyes: DENIES: Amaurosis Fugax, Change in vision HEENT: DENIES: Lightheadedness, Change in hearing Respiratory: DENIES: See HPI, Cough, Snoring, Shortness of breath, Wheezing, Sputum production Cardiovascular: DENIES: See HPI, Chest pain, Palpitations, Syncope, Tachycardia Gastrointestinal: DENIES: Nausea, Vomiting, Change in bowel habits, Reflux, Bloody stools, Melena Genitourinary: DENIES: Urinary incontinence, Difficulty voiding Integumentary: DENIES: Rash Neurologic: DENIES: Tingling or numbness, Memory problems, Poor Balance, Stroke symptoms Psychiatric: DENIES: Anxiety, Depression, Sleep disturbances Hematologic: DENIES: Bruising tendencies, Bleeding tendencies Endocrine: DENIES: Weight gain, Weight loss, Thyroid disease Past Family Social History Allergies: Coded Allergies: No Known Allergies (Verified Adverse Reaction, Unknown, 12/14/17) Past Medical History Depression, Bipolar Disorder, BPH, HTN and Hyperlipidemia Past Surgical History Back Surgery, Cholecystectomy, Cataract Surgery Reported Medications Reported Meds & Active Scripts Active Reported Dha Algal-900 (Docosahexaenoic Acid) 300 Mg Cap Ferrous Sulfate 325 Mg (65 Mg Iron) Tablet 325 Mg PO BIDPC Omeprazole 20 Mg Tab 20 Mg PO DAILY Timolol Opth Drops 0.5 % Soln 1 Drop LEFT EYE BID Pravachol (Pravastatin) 40 Mg Tab 40 Mg PO DAILY Flomax (Tamsulosin HCl) 0.4 Mg Cap 0.4 Mg PO HS Enalapril (Enalapril Maleate) 5 Mg Tab 5 Mg PO DAILY Aspirin 325 Mg Tab 325 Mg PO DAILY Active Ordered Medications Current Medications Medications (Trade) Dose Ordered Sig/Elizabeth Route Start Time Stop Time Status Last Admin Heparin Sodium/ Dextrose 250 ml @ 8 mls/hr TITRATE PRN IV 12/14/17 22:00 12/14/17 23:13 Ceftriaxone Sodium 1000 mg/ Sodium Chloride 100 ml @ 200 mls/hr Q24H IV 12/14/17 22:00 12/14/17 22:45 (NS Flush) 2 ml UNSCH PRN IV FLUSH 12/14/17 22:15 (NS Flush) 2 ml BID IV FLUSH 12/15/17 09:00 12/15/17 08:01 (Zofran Inj) 4 mg Q6H PRN IVP 12/14/17 22:15 (Tylenol) 650 mg Q6H PRN PO 12/14/17 22:15 ([place] 5-325 Mg) 1 tab Q4H PRN PO 12/14/17 22:15 (Morphine Inj) 2 mg Q3H PRN IV PUSH 12/14/17 22:15 (Gena-Colace) 1 tab BID PO 12/15/17 09:00 12/15/17 08:01 (Milk Of Magnesia Liq) 30 ml Q12H PRN PO 12/14/17 22:15 (Senokot) 17.2 mg Q12H PRN PO 12/14/17 22:15 (Dulcolax Supp) 10 mg DAILY PRN RECTAL 12/14/17 22:15 (Lactulose Liq) 30 ml DAILY PRN PO 12/14/17 22:15 (Aspirin) 325 mg DAILY PO 12/15/17 09:00 12/15/17 08:01 (Ferrous Sulfate) 325 mg BIDPC PO 12/15/17 09:00 12/15/17 08:01 (Pravachol) 40 mg DAILY PO 12/15/17 09:00 12/15/17 08:00 (Flomax) 0.4 mg HS PO 12/15/17 21:00 (Timoptic 0.5% Opth Soln) 1 drop BID LEFT EYE 12/14/17 22:15 (Protonix) 20 mg DAILY PO 12/15/17 09:00 12/15/17 08:00 (D50w (Vial) Inj) 50 ml UNSCH PRN IV PUSH 12/15/17 00:15 (Glucagon Inj) 1 mg UNSCH PRN OTHER 12/15/17 00:15 (NovoLOG SUPPLEMENTAL SCALE) 1 ACHS SLIDING SCALE SQ 12/15/17 08:00 (Nitroglycerin 2% Oint) 0.5 inch Q6HR PRN TOPICAL 12/15/17 00:15 (Duoneb Neb) 1 ampule Q4HR NEB PRN NEB 12/15/17 00:30 (Pneumovax-23 Inj) 25 mcg ONCE ONCE IM 12/16/17 10:00 12/16/17 10:01 Family History No h/o DM or CAD Social History Negative for alcohol, tobacco or drugs Physical Exam Vital Signs Vital Signs Date Time Temp Pulse Resp B/P (MAP) Pulse Ox O2 Delivery O2 Flow Rate FiO2 12/15/17 08:07 97 Nasal Cannula 2.00 12/15/17 07:57 98.1 100 18 92/48 (63) 97 12/15/17 06:00 101 12/15/17 05:00 100 12/15/17 04:00 110 12/15/17 04:00 Nasal Cannula 2.00 12/15/17 04:00 99.8 110 20 114/60 (78) 97 12/15/17 03:00 108 12/15/17 02:00 111 12/15/17 01:00 98.0 110 20 124/67 (86) 94 12/15/17 01:00 Nasal Cannula 2.00 12/15/17 01:00 110 12/14/17 23:02 100 16 132/61 (84) 96 Room Air 12/14/17 19:41 102 16 107/59 (75) 96 Room Air 12/14/17 18:37 99.1 110 16 150/90 (110) 96 Room Air 2.00 Physical Exam GENERAL: Well-nourished, well-developed patient. SKIN: Warm and dry. HEAD: Normocephalic. EYES: No scleral icterus. No injection or drainage. NECK: Supple, trachea midline. No JVD or lymphadenopathy. CARDIOVASCULAR: Regular rate and rhythm without murmurs, gallops, or rubs. RESPIRATORY: Breath sounds equal bilaterally. No accessory muscle use. GASTROINTESTINAL: Abdomen soft, non-tender, nondistended. EXTREMITIES: No cyanosis, or edema. NEUROLOGICAL: Awake, alert, and oriented x 3. Non-focal. Laboratory Laboratory Tests Test 12/14/17 20:05 12/14/17 20:35 1/14/18 22:35 12/14/17 22:47 White Blood Count 15.8 20.6 Red Blood Count 4.08 4.41 Hemoglobin 12.5 13.6 Hematocrit 36.9 40.4 Mean Corpuscular Volume 90.3 91.6 Mean Corpuscular Hemoglobin 30.7 30.9 Mean Corpuscular Hemoglobin Concent 34.0 33.7 Red Cell Distribution Width 14.2 14.4 Platelet Count 180 203 Mean Platelet Volume 8.3 8.6 Neutrophils (%) (Auto) 88.0 Lymphocytes (%) (Auto) 5.4 Monocytes (%) (Auto) 6.4 Eosinophils (%) (Auto) 0.0 Basophils (%) (Auto) 0.2 Neutrophils # (Auto) 13.9 Lymphocytes # (Auto) 0.8 Monocytes # (Auto) 1.0 Eosinophils # (Auto) 0.0 Basophils # (Auto) 0.0 CBC Comment DIFF FINAL Differential Comment Prothrombin Time 11.7 11.5 Prothromb Time International Ratio 1.2 1.1 Activated Partial Thromboplast Time 22.1 26.6 Blood Urea Nitrogen 30 Creatinine 1.87 Random Glucose 223 Total Protein 6.7 Albumin 2.9 Calcium Level 8.6 Magnesium Level 1.9 Alkaline Phosphatase 83 Aspartate Amino Transf (AST/SGOT) 28 Alanine Aminotransferase (ALT/SGPT) 15 Total Bilirubin 1.2 Sodium Level 139 Potassium Level 4.1 Chloride Level 106 Carbon Dioxide Level 22.0 Anion Gap 11 Estimat Glomerular Filtration Rate 34 Total Creatine Kinase 213 Creatine Kinase MB 1.8 Troponin I 1.37 C-Reactive Protein 17.00 B-Type Natriuretic Peptide 660 Lipase 57 Lactic Acid Level 3.2 Urine Color YELLOW Urine Turbidity HAZY Urine pH 6.0 Urine Specific [place]elling 1.016 Urine Protein 100 Urine Glucose (UA) NEG Urine Ketones NEG Urine Occult Blood MOD Urine Nitrite NEG Urine Bilirubin NEG Urine Urobilinogen LESS THAN 2.0 Urine Leukocyte Esterase LARGE Urine RBC 14 Urine WBC Urine Squamous Epithelial Cells 6 Urine Amorphous Sediment RARE Urine Bacteria MANY Microscopic Urinalysis Comment CULTURE INDICATED Test 12/14/17 23:52 12/15/17 00:15 12/15/17 00:53 12/15/17 05:30 Lactic Acid Level 2.3 Troponin I 1.39 1.68 White Blood Count 13.8 Red Blood Count 3.58 Hemoglobin 11.1 Hematocrit 32.6 Mean Corpuscular Volume 90.9 Mean Corpuscular Hemoglobin 30.9 Mean Corpuscular Hemoglobin Concent 34.0 Red Cell Distribution Width 14.3 Platelet Count 161 Mean Platelet Volume 8.0 Neutrophils (%) (Auto) 85.1 Lymphocytes (%) (Auto) 6.1 Monocytes (%) (Auto) 8.7 Eosinophils (%) (Auto) 0.0 Basophils (%) (Auto) 0.1 Neutrophils # (Auto) 11.7 Lymphocytes # (Auto) 0.8 Monocytes # (Auto) 1.2 Eosinophils # (Auto) 0.0 Basophils # (Auto) 0.0 CBC Comment DIFF FINAL Differential Comment Activated Partial Thromboplast Time 46.2 Blood Urea Nitrogen 31 Creatinine 1.73 Random Glucose 129 Total Protein 5.3 Albumin 2.4 Calcium Level 7.7 Alkaline Phosphatase 68 Aspartate Amino Transf (AST/SGOT) 21 Alanine Aminotransferase (ALT/SGPT) 12 Total Bilirubin 0.7 Sodium Level 141 Potassium Level 3.6 Chloride Level 110 Carbon Dioxide Level 21.8 Anion Gap 9 Estimat Glomerular Filtration Rate 37 Hemoglobin A1c 5.6 Triglycerides Level 80 Cholesterol Level 85 LDL Cholesterol 37 HDL Cholesterol 32.5 Cholesterol/HDL Ratio 2.61 Date/Time Source Procedure Growth Status 12/14/17 20:35 Blood Peripheral Aerobic Blood Culture Pending Received 12/14/17 20:35 Blood Peripheral Anaerobic Blood Culture Pending Received 12/15/17 00:15 Stool Stool Stool Occult Blood (LESLIE) - Final HEMOCCULT NEGATIVE Complete 12/14/17 20:35 Nasal Aspirate Influenza Types A,B Antigen (LESLIE) - Final NEGATIVE FOR FLU A AND B ANTIGEN.... Complete 12/14/17 22:47 Urine Random Urine Urine Culture Pending Received Result Diagram: 12/15/17 0053 12/15/17 0530 Imaging Last Impressions Chest X-Ray 12/14/172002 Signed Impressions: Service Date/Time: Thursday, December 14, 2017 20:54 - CONCLUSION: No evidence of acute cardiopulmonary disease. Alexander Mariano MD Assessment and Plan Problem List: (1) Elevated troponin ICD Codes: R74.8 - Abnormal levels of other serum enzymes Plan: No CV complaints. Denies chest pain, SOB, PND or syncope. Reports feeling better already. EKG LBBB old. UTI/low grade fever/?sepsis. Elevated troponin nonspecific however significantly elevated and trending up CAD cannot be excluded. Ideally LHC would be recommended however that may worsen kidney function. After a thorough discussion about treatment options, Mr. Kauffman has DECLINE any invasive cardiac procedure at this time. Thus will treat medically. Recommendations: Cont Heparin drip for 48hrs ASA and Plavix BB, statins and Long Acting Nitrates 2Dechocardiogram Follow up with Cards upon discharge Thank you for the opportunity to participate in the care of this patient (2) Hypertension ICD Codes: I10 - Essential (primary) hypertension Status: Acute (3) Generalized weakness ICD Codes: R53.1 - Weakness Status: Acute (4) Nausea ICD Codes: R11.0 - Nausea Status: Acute (5) Sepsis ICD Codes: A41.9 - Sepsis, unspecified organism (6) UTI (urinary tract infection) ICD Codes: N39.0 - Urinary tract infection, site not specified (7) STEVEN (acute kidney injury) ICD Codes: N17.9 - Acute kidney failure, unspecified (8) Elevated brain natriuretic peptide (BNP) level ICD Codes: R79.89 - Other specified abnormal findings of blood chemistry Lance Villar MD Dec 15, 2017 09:47
--- NOTE | 2017-12-15 09:53 | HHI.PR ---
Subjective Remarks This is a pleasant 87 y/o Male with Depression, Bipolar disorder, BPH, Hypertension, Hyperlipidemia, who came due to generalized weakness x1 day. Also notes abdominal pain, generalized, intermittent, 6/10, non-radiating. On arrival, BP 150/90, HR 110, O2 sat 96% on 2L NC, Temp 99.1. WBC 15.8. Creatinine 1.87. BS 223. Lactic Acid 3.2. Troponin 1.37. In P6 60. INR 1.2. UA positive for UTI. CXR with no acute findings. Started on Heparin gtt in ER. 12/15: Seen in his bedroom,no nausea, vomit or diarrhea, he is been seen by Cardiology wit diagnosis of atypical chest pain, has old LBBB, trending up Cardiac enzyme, recommended for left Heart Catheterization, the patient refused this procedure. was recommended to continue Heparin for the next 48 hours, Aspirin and Plavix. BB, Statins, long acting Nitrates and asked for Echocardiogram. Objective Vital Signs Date Time Temp Pulse Resp B/P (MAP) Pulse Ox O2 Delivery O2 Flow Rate FiO2 12/15/17 08:07 97 Nasal Cannula 2.00 12/15/17 07:57 98.1 100 18 92/48 (63) 97 12/15/17 06:00 101 12/15/17 05:00 100 12/15/17 04:00 110 12/15/17 04:00 Nasal Cannula 2.00 12/15/17 04:00 99.8 110 20 114/60 (78) 97 12/15/17 03:00 108 12/15/17 02:00 111 12/15/17 01:00 98.0 110 20 124/67 (86) 94 12/15/17 01:00 Nasal Cannula 2.00 12/15/17 01:00 110 12/14/17 23:02 100 16 132/61 (84) 96 Room Air 12/14/17 19:41 102 16 107/59 (75) 96 Room Air 12/14/17 18:37 99.1 110 16 150/90 (110) 96 Room Air 2.00 I/O 12/14/17 12/14/17 12/14/17 12/15/17 12/15/17 12/15/17 07:00 15:00 23:00 07:00 15:00 23:00 Intake Total 100 ml 4320 ml Output Total 800 ml Balance 100 ml 3520 ml Intake Oral 240 ml IV Total 100 ml 4080 ml Output Urine Total 800 ml # Bowel Movements 1 Result Diagram: 12/15/17 0053 12/15/17 0530 Imaging Last Impressions Chest X-Ray 12/14/172002 Signed Impressions: Service Date/Time: Thursday, December 14, 2017 20:54 - CONCLUSION: No evidence of acute cardiopulmonary disease. Alexander Mariano MD Procedures None Other Results Laboratory Tests Test 12/14/17 20:05 12/14/17 22:35 12/14/17 22:47 12/14/17 23:52 Blood Urea Nitrogen 30 MG/DL Creatinine 1.87 MG/DL Random Glucose 223 MG/DL Total Protein 6.7 GM/DL Albumin 2.9 GM/DL Calcium Level 8.6 MG/DL Magnesium Level 1.9 MG/DL Alkaline Phosphatase 83 U/L Aspartate Amino Transf (AST/SGOT) 28 U/L Alanine Aminotransferase (ALT/SGPT) 15 U/L Total Bilirubin 1.2 MG/DL Sodium Level 139 MEQ/L Potassium Level 4.1 MEQ/L Chloride Level 106 MEQ/L Carbon Dioxide Level 22.0 MEQ/L Total Creatine Kinase 213 U/L Creatine Kinase MB 1.8 NG/ML C-Reactive Protein 17.00 MG/DL B-Type Natriuretic Peptide 660 PG/ML Lipase 57 U/L Prothrombin Time 11.5 SEC Prothromb Time International Ratio 1.1 RATIO Urine Color YELLOW Urine Turbidity HAZY Urine pH 6.0 Urine Specific [place] 1.016 Urine Protein 100 mg/dL Urine Glucose (UA) NEG mg/dL Urine Ketones NEG mg/dL Urine Occult Blood MOD Urine Nitrite NEG Urine Bilirubin NEG Urine Urobilinogen LESS THAN 2.0 MG/DL Urine Leukocyte Esterase LARGE Urine RBC 14 /hpf Urine WBC /hpf Urine Squamous Epithelial Cells 6 /hpf Urine Amorphous Sediment RARE Urine Bacteria MANY /hpf Microscopic Urinalysis Comment CULTURE INDICATED Lactic Acid Level 2.3 mmol/L Test 12/15/17 00:53 12/15/17 05:30 White Blood Count 13.8 TH/MM3 Red Blood Count 3.58 MIL/MM3 Hemoglobin 11.1 GM/DL Hematocrit 32.6 % Mean Corpuscular Volume 90.9 FL Mean Corpuscular Hemoglobin 30.9 PG Mean Corpuscular Hemoglobin Concent 34.0 % Red Cell Distribution Width 14.3 % Platelet Count 161 TH/MM3 Mean Platelet Volume 8.0 FL Neutrophils (%) (Auto) 85.1 % Lymphocytes (%) (Auto) 6.1 % Monocytes (%) (Auto) 8.7 % Eosinophils (%) (Auto) 0.0 % Basophils (%) (Auto) 0.1 % Neutrophils # (Auto) 11.7 TH/MM3 Lymphocytes # (Auto) 0.8 TH/MM3 Monocytes # (Auto) 1.2 TH/MM3 Eosinophils # (Auto) 0.0 TH/MM3 Basophils # (Auto) 0.0 TH/MM3 CBC Comment DIFF FINAL Differential Comment Activated Partial Thromboplast Time 46.2 SEC Blood Urea Nitrogen 31 MG/DL Creatinine 1.73 MG/DL Random Glucose 129 MG/DL Total Protein 5.3 GM/DL Albumin 2.4 GM/DL Calcium Level 7.7 MG/DL Alkaline Phosphatase 68 U/L Aspartate Amino Transf (AST/SGOT) 21 U/L Alanine Aminotransferase (ALT/SGPT) 12 U/L Total Bilirubin 0.7 MG/DL Sodium Level 141 MEQ/L Potassium Level 3.6 MEQ/L Chloride Level 110 MEQ/L Carbon Dioxide Level 21.8 MEQ/L Anion Gap 9 MEQ/L Estimat Glomerular Filtration Rate 37 ML/MIN Hemoglobin A1c 5.6 % Troponin I 1.68 NG/ML Triglycerides Level 80 MG/DL Cholesterol Level 85 MG/DL LDL Cholesterol 37 MG/DL HDL Cholesterol 32.5 MG/DL Cholesterol/HDL Ratio 2.61 RATIO Objective Remarks GENERAL: No acute distress. HEENT: PERRLA, EOMI. CARDIOVASCULAR: Regular rate and rhythm. No obvious murmurs to auscultation. No chest tenderness to palpation. RESPIRATORY: No obvious rhonchi or wheezing. Clear to auscultation. Breath sounds equal bilaterally. GASTROINTESTINAL: Abdomen soft, mild epigastric tenderness palpation, nondistended. BS normal. MUSCULOSKELETAL: Extremities without clubbing, cyanosis, or edema. No obvious deformities. NEUROLOGICAL: Awake, alert and oriented x4. No focal neurologic deficits. Moving both upper and lower extremities spontaneously. Medications and IVs Current Medications Medications (Trade) Dose Ordered Sig/Elizabeth Route Start Time Stop Time Status Last Admin Heparin Sodium/ Dextrose 250 ml @ 8 mls/hr TITRATE PRN IV 12/14/17 22:00 12/14/17 23:13 Ceftriaxone Sodium 1000 mg/ Sodium Chloride 100 ml @ 200 mls/hr Q24H IV 12/14/17 22:00 12/14/17 22:45 (NS Flush) 2 ml UNSCH PRN IV FLUSH 12/14/17 22:15 (NS Flush) 2 ml BID IV FLUSH 12/15/17 09:00 12/15/17 08:01 (Zofran Inj) 4 mg Q6H PRN IVP 12/14/17 22:15 (Tylenol) 650 mg Q6H PRN PO 12/14/17 22:15 (Hoffman 5-325 Mg) 1 tab Q4H PRN PO 12/14/17 22:15 (Morphine Inj) 2 mg Q3H PRN IV PUSH 12/14/17 22:15 (Gena-Colace) 1 tab BID PO 12/15/17 09:00 12/15/17 08:01 (Milk Of Magnesia Liq) 30 ml Q12H PRN PO 12/14/17 22:15 (Senokot) 17.2 mg Q12H PRN PO 12/14/17 22:15 (Dulcolax Supp) 10 mg DAILY PRN RECTAL 12/14/17 22:15 (Lactulose Liq) 30 ml DAILY PRN PO 12/14/17 22:15 (Aspirin) 325 mg DAILY PO 12/15/17 09:00 12/15/17 08:01 (Ferrous Sulfate) 325 mg BIDPC PO 12/15/17 09:00 12/15/17 08:01 (Pravachol) 40 mg DAILY PO 12/15/17 09:00 12/15/17 08:00 (Flomax) 0.4 mg HS PO 12/15/17 21:00 (Timoptic 0.5% Opth Soln) 1 drop BID LEFT EYE 12/14/17 22:15 (Protonix) 20 mg DAILY PO 12/15/17 09:00 12/15/17 08:00 (D50w (Vial) Inj) 50 ml UNSCH PRN IV PUSH 12/15/17 00:15 (Glucagon Inj) 1 mg UNSCH PRN OTHER 12/15/17 00:15 (NovoLOG SUPPLEMENTAL SCALE) 1 ACHS SLIDING SCALE SQ 12/15/17 08:00 (Nitroglycerin 2% Oint) 0.5 inch Q6HR PRN TOPICAL 12/15/17 00:15 (Duoneb Neb) 1 ampule Q4HR NEB PRN NEB 12/15/17 00:30 (Pneumovax-23 Inj) 25 mcg ONCE ONCE IM 12/16/17 10:00 12/16/17 10:01 A/P Assessment and Plan 1. NSTEMI: seen by Cardiology wit diagnosis of atypical chest pain, has old LBBB, trending up Cardiac enzyme, recommended for left Heart Catheterization, the patient refused this procedure. was recommended to continue Heparin for the next 48 hours, Aspirin and Plavix. BB, Statins, long acting Nitrates and asked for Echocardiogram. 2. Sepsis: Temp 99.1, HR 110, WBC 15.8, Lactic Acid 3.2, Source-UTI. S/p Blood Cultures, start Rocephin IV, at this time blood culture positive for Gram Negative Bacteremia, increased Ceftriaxone to 2 grams daily and asked for ID specialist consult. 3. UTI: U/a w/ UTI, awaiting for culture. probable reason for Gram Negative Bacteremia. 4. Hyperglycemia: BS 223, no reported h/o DM, sliding scale continue, Hemoglobin A1C 5.6 5. Elevated BNP: BNP 660, no h/o CHF. CXR w/ no acute findings. Check Echo to eval for heart failure, possibly triggered by acute ischemia or sepsis. awaiting for Echocardiogram. DVT Prophylaxis: Heparin gtt Discussed with personal loan specialist doctor Quincy Pretty. Discharge Planning once cleared by ID specialist and Cardiology Jesse Ingram MD Dec 15, 2017 09:53
[2017-12-15] MEDS: TIMOLOL MALEATE 0.5% OPHT SOLN 5 ML BTL LEFT EYE SCH ×2 (12:28→21:10)
[2017-12-15] MEDS ORDERED: cefTRIAXone INJ 1,000 MG in SODIUM CHLORIDE 0.9% INJ 100 ML IV ONE (14:00)
--- NOTE | 2017-12-15 15:07 | EKG ---
Date Performed: 12/15/2017 Time Performed: 00:12:30 PTAGE: 87 years EKG: SINUS TACHYCARDIA WITH OCCASIONAL SUPRAVENTRICULAR PREMATURE COMPLEXES LEFT BUNDLE BRANCH B LOCK Since previous tracing, no significant change noted ABNORMAL ECG PREVIOUS TRACING : 12/14/2017 20.25 DOCTOR: Cyrus Galindo Interpretating Date/Time 12/15/2017 15:07:09
--- NOTE | 2017-12-15 15:07 | EKG ---
Date Performed: 12/14/2017 Time Performed: 20:25:32 PTAGE: 87 years EKG: Sinus rhythm LEFT BUNDLE BRANCH BLOCK Since previous tracing, no significant change noted ABNORMAL ECG PREVIOUS TRACING : 10/08/2011 02.09 DOCTOR: Cyrus Galindo Interpretating Date/Time 12/15/2017 15:07:31
--- NOTE | 2017-12-15 16:57 | ECHRPT ---
Indication: HEART FAILURE CONCLUSIONS The left ventricular systolic function is hyperdynamic with an estimated ejection fraction in the ra nge of 65- 70%. Normal left ventricular size. Moderate concentric left ventricular hypertrophy. No regional wall motion abnormalities are present. Mild mitral valve regurgitation. Aortic valve sclerosis is present. Mild aortic valve stenosis. Aortic valve area is 1.97 cm. Aortic valve mean gradient is 23.5 mmHg. There is mild to moderate tricuspid valve regurgitation. The estimated pulmonary arterial pressure is 53 mmHg. BP: 114 / 60 HR: 110 Rhythm: Sinus MEASUREMENTS (Male / Female) Normal Values Technical Quality:Good 2D ECHO LV Diastolic Diameter PLAX 4.0 cm 4.2 - 5.9 / 3.9 - 5.3 cm LV Systolic Diameter PLAX 3.0 cm IVS Diastolic Thickness 1.5 cm 0.6 - 1.0 / 0.6 - 0.9 cm LVPW Diastolic Thickness 1.6 cm 0.6 - 1.0 / 0.6 - 0.9 cm LV Relative Wall Thickness 0.8 RV Internal Dim ED PLAX 3.0 cm LVOT Diameter 2.0 cm LA Systolic Diameter LX 4.0 cm 3.0 - 4.0 / 2.7 - 3.8 cm LV Ejection Fraction MOD 4C 65.9 % LV Cardiac Index MOD 4C 3721.2 cm/minm LV Ejection Fraction 4C AL 66.9 % LV Cardiac Index 4C AL 3915.8 cm/minm M-MODE Aortic Root Diameter MM 3.1 cm LA Systolic Diameter MM 3.5 cm LA Ao Ratio MM 1.1 AV Cusp Separation MM 1.5 cm DOPPLER AV Peak Velocity 385.5 cm/s AV Peak Gradient 59.4 mmHg AV Mean Gradient 23.5 mmHg AV Velocity Time Integral 49.5 cm LVOT Peak Velocity 241.0 cm/s LVOT Peak Gradient 23.2 mmHg LVOT Velocity Time Integral 39.5 cm LVOT Cardiac Index 7696.2 cm/minm AV Area Cont Eq vti 2.5 cm AV Area Cont Eq pk 2.0 cm MV Area PHT 4.7 cm Mitral E Point Velocity 102.0 cm/s Mitral A Point Velocity 131.0 cm/s Mitral E to A Ratio 0.8 LV E' Lateral Velocity 5.4 cm/s Mitral E to LV E' Lateral Ratio 19.0 LV E' Septal Velocity 5.0 cm/s Mitral E to LV E' Septal Ratio 20.5 TR Peak Velocity 328.0 cm/s TR Peak Gradient 43.0 mmHg Right Atrial Pressure 10.0 mmHg Pulmonary Artery Systolic Pressu 53.0 mmHg Right Ventricular Systolic Press 53.0 mmHg PV Peak Velocity 138.0 cm/s PV Peak Gradient 7.6 mmHg FINDINGS LEFT VENTRICLE The left ventricular systolic function is hyperdynamic with an estimated ejection fraction in the ra nge of 65- 70%. Normal left ventricular size. Moderate concentric left ventricular hypertrophy. No regional wall motion abnormalities are present. RIGHT VENTRICLE Normal right ventricular size and systolic function. LEFT ATRIUM The left atrial size is normal. RIGHT ATRIUM The right atrial size is normal. ATRIAL SEPTUM Normal atrial septal thickness without atrial level shunting by limited color doppler interrogation. AORTA The aortic root and proximal ascending aorta are normal in size on limited imaging. MITRAL VALVE Structurally normal mitral valve. Mild mitral valve regurgitation. AORTIC VALVE Trileaflet aortic valve. Aortic valve sclerosis is present. Mild aortic valve stenosis. Aortic valve area is 1.97 cm. Aortic valve mean gradient is 23.5 mmHg. TRICUSPID VALVE Structurally normal tricuspid valve. There is mild to moderate tricuspid valve regurgitation. The estimated pulmonary arterial pressure is 53 mmHg. PULMONARY VALVE No pulmonary valve regurgitation or stenosis. VESSELS The inferior vena cava is normal in size. PERICARDIUM No pericardial effusion. Lance Vilalr MD (Electronically Signed) Final Date:15 December 2017 16:56
[2017-12-15] MEDS ORDERED: MISCELLANEOUS PHARMACY INFORMATION XX PRN (18:00)
[2017-12-15] MEDS ORDERED: ASP: Documented ESBL, MDR A baumannii or P. aeruginosa PRN (18:00)
[2017-12-15] MEDS: ERTAPENEM INJ 1,000 MG in SODIUM CHLORIDE 0.9% INJ 100 ML IV SCH (19:04)
--- NOTE | 2017-12-15 19:14 | PD.ID.CON ---
History of Present Illness Service ID Consult Requested By Dr Bruce Reason for Consult gram negative bacteremia Primary Care Physician Unknown Diagnoses: History of Present Illness pt was seen around 1830 Pt has demeintia and is unable to give history; per RN progressively lethargic as the day goes 87 yo male with multiple med problems presented to the ER with complaints of generalized weakness x1 day associated w/ few episodes of nausea/vomiting. Also notes abdominal pain, Presentation with fever Temp 99.1., leukocytosis WBC 15.8 and elevATED Creatinine 1.87, LACTIC ACIDOSIS Lactic Acid 3.2. and positive Troponin 1.37. UA abnormal, cw for UTI. CXR with no acute findings. 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 Pt is incontinent of urine according to RN His blood and urine cultures ar positive for GNB, E.coli ESBL+ per adalid Review of Systems ROS Limitations: Altered Mental Status Past Family Social History Allergies: Coded Allergies: No Known Allergies (Verified Adverse Reaction, Unknown, 12/14/17) Active Ordered Medications Medications where reviewed in EMR Antibiotics Include: CFTX Physical Exam Vital Signs Vital Signs Date Time Temp Pulse Resp B/P (MAP) Pulse Ox O2 Delivery O2 Flow Rate FiO2 12/15/17 15:59 115 12/15/17 15:40 98.5 112 18 124/58 (80) 97 12/15/17 14:00 96 12/15/17 13:00 86 12/15/17 12:00 100 12/15/17 11:10 98.4 103 18 123/66 (85) 95 12/15/17 11:00 109 12/15/17 10:04 95 Nasal Cannula 2.00 12/15/17 09:00 92 12/15/17 08:07 97 Nasal Cannula 2.00 12/15/17 08:00 100 12/15/17 07:57 98.1 100 18 92/48 (63) 97 12/15/17 07:00 102 12/15/17 06:00 101 12/15/17 05:00 100 12/15/17 04:00 110 12/15/17 04:00 Nasal Cannula 2.00 12/15/17 04:00 99.8 110 20 114/60 (78) 97 12/15/17 03:00 108 12/15/17 02:00 111 12/15/17 01:00 98.0 110 20 124/67 (86) 94 12/15/17 01:00 Nasal Cannula 2.00 12/15/17 01:00 110 12/14/17 23:02 100 16 132/61 (84) 96 Room Air 12/14/17 19:41 102 16 107/59 (75) 96 Room Air Physical Exam CONSTITUTIONAL/GENERAL: This is an adequately nourished patient, in no apparent distress. TUBES/LINES/DRAINS: SKIN: No jaundice, rashes, or lesions. Ecchymoses on upper extremities. No wounds seen anteriorly. Skin temperature appropriate. Not diaphoretic. HEAD: Atraumatic. Normocephalic. EYES: Pupils equal and round and reactive. Extraocular motions intact. No scleral icterus. No injection or drainage. Fundi not examined. ENT: Hearing grossly normal. Nose without bleeding or purulent drainage. Throat without visible erythema, exudates, masses, or lesions. NECK: Trachea midline. Supple, nontender. No palpable thyroid enlargement or nodularity. CARDIOVASCULAR: Regular rate and rhythm without murmurs, gallops, or rubs. No JVD. Peripheral pulses symmetric. RESPIRATORY/CHEST: Symmetric, unlabored respirations. Clear to auscultation. Breath sounds equal bilaterally. No wheezes, rales, or rhonchi. GASTROINTESTINAL: Abdomen soft, non-tender, nondistended. No hepato- spleIncontinent of foul smelling urineFoley catheter in place. MUSCULOSKELETAL: Extremities without clubbing, cyanosis, or edema. No joint tenderness or effusion noted. No calf tenderness. No mottling or clubbing. LYMPHATICS: No palpable cervical or supraclavicular adenopathy. NEUROLOGICAL: Lethargic , arousable . Motor and sensory grossly within normal limits. Follows commands with difficulties. Speech incoherent . Moves all extremities. PSYCHIATRIC: unable to assess Laboratory Laboratory Tests Test 12/14/17 20:05 12/14/17 20:35 12/14/17 22:35 12/14/17 22:47 White Blood Count 15.8 20.6 Red Blood Count 4.08 4.41 Hemoglobin 12.5 13.6 Hematocrit 36.9 40.4 Mean Corpuscular Volume 90.3 91.6 Mean Corpuscular Hemoglobin 30.7 30.9 Mean Corpuscular Hemoglobin Concent 34.0 33.7 Red Cell Distribution Width 14.2 14.4 Platelet Count 180 203 Mean Platelet Volume 8.3 8.6 Neutrophils (%) (Auto) 88.0 Lymphocytes (%) (Auto) 5.4 Monocytes (%) (Auto) 6.4 Eosinophils (%) (Auto) 0.0 Basophils (%) (Auto) 0.2 Neutrophils # (Auto) 13.9 Lymphocytes # (Auto) 0.8 Monocytes # (Auto) 1.0 Eosinophils # (Auto) 0.0 Basophils # (Auto) 0.0 CBC Comment DIFF FINAL Differential Comment Prothrombin Time 11.7 11.5 Prothromb Time International Ratio 1.2 1.1 Activated Partial Thromboplast Time 22.1 26.6 Blood Urea Nitrogen 30 Creatinine 1.87 Random Glucose 223 Total Protein 6.7 Albumin 2.9 Calcium Level 8.6 Magnesium Level 1.9 Alkaline Phosphatase 83 Aspartate Amino Transf (AST/SGOT) 28 Alanine Aminotransferase (ALT/SGPT) 15 Total Bilirubin 1.2 Sodium Level 139 Potassium Level 4.1 Chloride Level 106 Carbon Dioxide Level 22.0 Anion Gap 11 Estimat Glomerular Filtration Rate 34 Total Creatine Kinase 213 Creatine Kinase MB 1.8 Troponin I 1.37 C-Reactive Protein 17.00 B-Type Natriuretic Peptide 660 Lipase 57 Lactic Acid Level 3.2 Urine Color YELLOW Urine Turbidity HAZY Urine pH 6.0 Urine Specific [place] 1.016 Urine Protein 100 Urine Glucose (UA) NEG Urine Ketones NEG Urine Occult Blood MOD Urine Nitrite NEG Urine Bilirubin NEG Urine Urobilinogen LESS THAN 2.0 Urine Leukocyte Esterase LARGE Urine RBC 14 Urine WBC Urine Squamous Epithelial Cells 6 Urine Amorphous Sediment RARE Urine Bacteria MANY Microscopic Urinalysis Comment CULTURE INDICATED Test 12/14/17 23:52 12/15/17 00:15 12/15/17 00:53 12/15/17 05:30 Lactic Acid Level 2.3 Troponin I 1.39 1.68 White Blood Count 13.8 Red Blood Count 3.58 Hemoglobin 11.1 Hematocrit 32.6 Mean Corpuscular Volume 90.9 Mean Corpuscular Hemoglobin 30.9 Mean Corpuscular Hemoglobin Concent 34.0 Red Cell Distribution Width 14.3 Platelet Count 161 Mean Platelet Volume 8.0 Neutrophils (%) (Auto) 85.1 Lymphocytes (%) (Auto) 6.1 Monocytes (%) (Auto) 8.7 Eosinophils (%) (Auto) 0.0 Basophils (%) (Auto) 0.1 Neutrophils # (Auto) 11.7 Lymphocytes # (Auto) 0.8 Monocytes # (Auto) 1.2 Eosinophils # (Auto) 0.0 Basophils # (Auto) 0.0 CBC Comment DIFF FINAL Differential Comment Activated Partial Thromboplast Time 46.2 Blood Urea Nitrogen 31 Creatinine 1.73 Random Glucose 129 Total Protein 5.3 Albumin 2.4 Calcium Level 7.7 Alkaline Phosphatase 68 Aspartate Amino Transf (AST/SGOT) 21 Alanine Aminotransferase (ALT/SGPT) 12 Total Bilirubin 0.7 Sodium Level 141 Potassium Level 3.6 Chloride Level 110 Carbon Dioxide Level 21.8 Anion Gap 9 Estimat Glomerular Filtration Rate 37 Hemoglobin A1c 5.6 Triglycerides Level 80 Cholesterol Level 85 LDL Cholesterol 37 HDL Cholesterol 32.5 Cholesterol/HDL Ratio 2.61 Test 12/15/17 12:40 Activated Partial Thromboplast Time 40.8 Date/Time Source Procedure Growth Status 12/14/17 20:35 Blood Peripheral Aerobic Blood Culture - Preliminary Gram Negative Yvan Resulted 12/14/17 20:35 Anaerobic Blood Culture - Preliminary Gram Negative Yvan Resulted 12/15/17 00:15 Stool Stool Stool Occult Blood (LESLIE) - Final HEMOCCULT NEGATIVE Complete 12/14/17 20:35 Nasal Aspirate Influenza Types A,B Antigen (LESLIE) - Final NEGATIVE FOR FLU A AND B ANTIGEN.... Complete 12/14/17 22:47 Urine Random Urine Urine Culture - Preliminary Gram Negative Yvan Resulted Result Diagram: 12/15/17 0053 12/15/17 0530 Imaging Last Impressions Chest X-Ray 12/14/172002 Signed Impressions: Service Date/Time: Thursday, December 14, 2017 20:54 - CONCLUSION: No evidence of acute cardiopulmonary disease. Alexander Mariano MD Assessment and Plan Assessment and Plan UTI, sepsis 2/2 ESBL + E.coli Plan: Dc CFTX start Ertapenem Discussed Condition With Juliette Howe MD Dec 15, 2017 19:14
[2017-12-15] MEDS: TAMSULOSIN HCL 0.4 MG CAP PO SCH (21:10)
[2017-12-16] VITALS (11 sets, daily range): BP systolic 94–129; BP diastolic 54–80; PULSE 74–160; RESP 18–20; TEMP 98.4–101.9; O2SAT 96–98
[2017-12-16] MEDS: ACETAMINOPHEN 325 MG TAB PO PRN ×2 (00:26→12:05)
[2017-12-16] MEDS: HEPARIN-D5W 25,000 U/250 ML 250 ML IV PRN (07:39)
[2017-12-16] MEDS: INSULIN ASPART SUPPLEMENTAL SCALE SQ SCH ×4 (08:00→20:39)
--- NOTE | 2017-12-16 08:43 | HHI.PR ---
Subjective Remarks This is a pleasant 87 y/o Male with Depression, Bipolar disorder, BPH, Hypertension, Hyperlipidemia, who came due to generalized weakness x1 day. Also notes abdominal pain, generalized, intermittent, 6/10, non-radiating. On arrival, BP 150/90, HR 110, O2 sat 96% on 2L NC, Temp 99.1. WBC 15.8. Creatinine 1.87. BS 223. Lactic Acid 3.2. Troponin 1.37. In P6 60. INR 1.2. UA positive for UTI. CXR with no acute findings. Started on Heparin gtt in ER. 12/15: Seen in his bedroom,no nausea, vomit or diarrhea, he is been seen by Cardiology wit diagnosis of atypical chest pain, has old LBBB, trending up Cardiac enzyme, recommended for left Heart Catheterization, the patient refused this procedure. was recommended to continue Heparin for the next 48 hours, Aspirin and Plavix. BB, Statins, long acting Nitrates and asked for Echocardiogram. 12/16: Seen by ID specialist later Urine and blood culture positive for E Coli ESBL now on Ertapenem. recommended by ID specialist for Ertapenem for two weeks, not yet cleared by ID specialist, no nausea, vomit or diarrhea. Objective Vital Signs Date Time Temp Pulse Resp B/P (MAP) Pulse Ox O2 Delivery O2 Flow Rate FiO2 12/16/17 08:32 99.0 97 20 94/54 (67) 97 12/16/17 05:59 83 12/16/17 04:30 160 12/16/17 04:08 99.1 95 18 101/57 (72) 96 12/16/17 03:58 89 12/16/17 00:19 101.9 106 18 129/58 (81) 96 12/16/17 00:01 103 12/15/17 21:47 103 12/15/17 21:00 100.9 110 18 148/68 (94) 96 12/15/17 20:50 Nasal Cannula 2.00 12/15/17 19:50 Nasal Cannula 2.00 12/15/17 18:00 112 12/15/17 17:00 130 12/15/17 15:59 115 12/15/17 15:40 98.5 112 18 124/58 (80) 97 12/15/17 14:00 96 12/15/17 13:00 86 12/15/17 12:00 100 12/15/17 11:10 98.4 103 18 123/66 (85) 95 12/15/17 11:00 109 12/15/17 10:04 95 Nasal Cannula 2.00 12/15/17 09:00 92 I/O 12/15/17 12/15/17 12/15/17 12/16/17 12/16/17 12/16/17 07:00 15:00 23:00 07:00 15:00 23:00 Intake Total 4320 ml Output Total 800 ml 100 ml Balance 3520 ml -100 ml Intake Oral 240 ml IV Total 4080 ml Output Urine Total 800 ml 100 ml # Voids 1 2 # Bowel Movements 1 Result Diagram: 12/15/17 0053 12/15/17 0530 Imaging Last Impressions Chest X-Ray 12/14/172002 Signed Impressions: Service Date/Time: Thursday, December 14, 2017 20:54 - CONCLUSION: No evidence of acute cardiopulmonary disease. Alexander Mariano MD Procedures None Other Results Laboratory Tests Test 12/14/17 20:05 12/14/17 22:35 12/14/17 22:47 12/14/17 23:52 Blood Urea Nitrogen 30 MG/DL Creatinine 1.87 MG/DL Random Glucose 223 MG/DL Total Protein 6.7 GM/DL Albumin 2.9 GM/DL Calcium Level 8.6 MG/DL Magnesium Level 1.9 MG/DL Alkaline Phosphatase 83 U/L Aspartate Amino Transf (AST/SGOT) 28 U/L Alanine Aminotransferase (ALT/SGPT) 15 U/L Total Bilirubin 1.2 MG/DL Sodium Level 139 MEQ/L Potassium Level 4.1 MEQ/L Chloride Level 106 MEQ/L Carbon Dioxide Level 22.0 MEQ/L Total Creatine Kinase 213 U/L Creatine Kinase MB 1.8 NG/ML C-Reactive Protein 17.00 MG/DL B-Type Natriuretic Peptide 660 PG/ML Lipase 57 U/L Prothrombin Time 11.5 SEC Prothromb Time International Ratio 1.1 RATIO Urine Color YELLOW Urine Turbidity HAZY Urine pH 6.0 Urine Specific [place] 1.016 Urine Protein 100 mg/dL Urine Glucose (UA) NEG mg/dL Urine Ketones NEG mg/dL Urine Occult Blood MOD Urine Nitrite NEG Urine Bilirubin NEG Urine Urobilinogen LESS THAN 2.0 MG/DL Urine Leukocyte Esterase LARGE Urine RBC 14 /hpf Urine WBC /hpf Urine Squamous Epithelial Cells 6 /hpf Urine Amorphous Sediment RARE Urine Bacteria MANY /hpf Microscopic Urinalysis Comment CULTURE INDICATED Lactic Acid Level 2.3 mmol/L Test 12/15/17 00:53 12/15/17 05:30 12/16/17 06:56 White Blood Count 13.8 TH/MM3 Red Blood Count 3.58 MIL/MM3 Hemoglobin 11.1 GM/DL Hematocrit 32.6 % Mean Corpuscular Volume 90.9 FL Mean Corpuscular Hemoglobin 30.9 PG Mean Corpuscular Hemoglobin Concent 34.0 % Red Cell Distribution Width 14.3 % Platelet Count 161 TH/MM3 Mean Platelet Volume 8.0 FL Neutrophils (%) (Auto) 85.1 % Lymphocytes (%) (Auto) 6.1 % Monocytes (%) (Auto) 8.7 % Eosinophils (%) (Auto) 0.0 % Basophils (%) (Auto) 0.1 % Neutrophils # (Auto) 11.7 TH/MM3 Lymphocytes # (Auto) 0.8 TH/MM3 Monocytes # (Auto) 1.2 TH/MM3 Eosinophils # (Auto) 0.0 TH/MM3 Basophils # (Auto) 0.0 TH/MM3 CBC Comment DIFF FINAL Differential Comment Blood Urea Nitrogen 31 MG/DL Creatinine 1.73 MG/DL Random Glucose 129 MG/DL Total Protein 5.3 GM/DL Albumin 2.4 GM/DL Calcium Level 7.7 MG/DL Alkaline Phosphatase 68 U/L Aspartate Amino Transf (AST/SGOT) 21 U/L Alanine Aminotransferase (ALT/SGPT) 12 U/L Total Bilirubin 0.7 MG/DL Sodium Level 141 MEQ/L Potassium Level 3.6 MEQ/L Chloride Level 110 MEQ/L Carbon Dioxide Level 21.8 MEQ/L Anion Gap 9 MEQ/L Estimat Glomerular Filtration Rate 37 ML/MIN Hemoglobin A1c 5.6 % Troponin I 1.68 NG/ML Triglycerides Level 80 MG/DL Cholesterol Level 85 MG/DL LDL Cholesterol 37 MG/DL HDL Cholesterol 32.5 MG/DL Cholesterol/HDL Ratio 2.61 RATIO Activated Partial Thromboplast Time 36.9 SEC Objective Remarks GENERAL: No acute distress. HEENT: PERRLA, EOMI. CARDIOVASCULAR: Regular rate and rhythm. No obvious murmurs to auscultation. No chest tenderness to palpation. RESPIRATORY: No obvious rhonchi or wheezing. Clear to auscultation. Breath sounds equal bilaterally. GASTROINTESTINAL: Abdomen soft, mild epigastric tenderness palpation, nondistended. BS normal. MUSCULOSKELETAL: Extremities without clubbing, cyanosis, or edema. No obvious deformities. NEUROLOGICAL: Awake, alert and oriented x4. No focal neurologic deficits. Moving both upper and lower extremities spontaneously. Medications and IVs Current Medications Medications (Trade) Dose Ordered Sig/Elizabeth Route Start Time Stop Time Status Last Admin Heparin Sodium/ Dextrose 250 ml @ 8 mls/hr TITRATE PRN IV 12/14/17 22:00 12/16/17 07:39 (NS Flush) 2 ml UNSCH PRN IV FLUSH 12/14/17 22:15 (NS Flush) 2 ml BID IV FLUSH 12/15/17 09:00 12/15/17 21:11 (Zofran Inj) 4 mg Q6H PRN IVP 12/14/17 22:15 (Tylenol) 650 mg Q6H PRN PO 12/14/17 22:15 12/16/17 00:26 ([place] 5-325 Mg) 1 tab Q4H PRN PO 12/14/17 22:15 (Morphine Inj) 2 mg Q3H PRN IV PUSH 12/14/17 22:15 (Gena-Colace) 1 tab BID PO 12/15/17 09:00 12/15/17 21:10 (Milk Of Magnesia Liq) 30 ml Q12H PRN PO 12/14/17 22:15 (Senokot) 17.2 mg Q12H PRN PO 12/14/17 22:15 (Dulcolax Supp) 10 mg DAILY PRN RECTAL 12/14/17 22:15 (Lactulose Liq) 30 ml DAILY PRN PO 12/14/17 22:15 (Aspirin) 325 mg DAILY PO 12/15/17 09:00 12/15/17 08:01 (Ferrous Sulfate) 325 mg BIDPC PO 12/15/17 09:00 12/15/17 08:01 (Pravachol) 40 mg DAILY PO 12/15/17 09:00 12/15/17 08:00 (Flomax) 0.4 mg HS PO 12/15/17 21:00 12/15/17 21:10 (Timoptic 0.5% Opth Soln) 1 drop BID LEFT EYE 12/14/17 22:15 12/15/17 21:10 (Protonix) 20 mg DAILY PO 12/15/17 09:00 12/15/17 08:00 (D50w (Vial) Inj) 50 ml UNSCH PRN IV PUSH 12/15/17 00:15 (Glucagon Inj) 1 mg UNSCH PRN OTHER 12/15/17 00:15 (NovoLOG SUPPLEMENTAL SCALE) 1 ACHS SLIDING SCALE SQ 12/15/17 08:00 12/15/17 21:24 (Nitroglycerin 2% Oint) 0.5 inch Q6HR PRN TOPICAL 12/15/17 00:15 (Duoneb Neb) 1 ampule Q4HR NEB PRN NEB 12/15/17 00:30 (Pneumovax-23 Inj) 25 mcg ONCE ONCE IM 12/16/17 10:00 12/16/17 10:01 (ASP Crit: Doc ESBL, MDR A baumannii or P aer) 1 UNSCH X1 PRN .XX 12/15/17 18:00 12/16/17 17:59 ([facility] [place] [facility] Information) 1 UNSCH X1 PRN XX 12/15/17 18:00 12/16/17 17:59 Ertapenem 1000 mg/ Sodium Chloride 100 ml @ 200 mls/hr Q24H IV 12/15/17 18:00 12/15/17 19:04 A/P Assessment and Plan 1. NSTEMI: seen by Cardiology wit diagnosis of atypical chest pain, has old LBBB, trending up Cardiac enzyme, recommended for left Heart Catheterization, the patient refused this procedure. was recommended to continue Heparin for the next 48 hours, Aspirin and Plavix. BB, Statins, long acting Nitrates and Echocardiogram EF 70%. 2. Sepsis: Temp 99.1, HR 110, WBC 15.8, Lactic Acid 3.2, Source-UTI. S/p Blood Cultures, start Rocephin IV, at this time blood culture positive for Gram Negative Bacteremia, later sensitivity found E Coli ESBL now on Ertapenem for the next two weeks contemplated by ID specialist for by mouth antibiotics. 3. UTI: U/a w/ UTI, awaiting for culture. E Coli positive. 4. Hyperglycemia: BS 223, no reported h/o DM, sliding scale continue, Hemoglobin A1C 5.6 5. Elevated BNP: BNP 660, no h/o CHF. CXR w/ no acute findings. Echocardiogram EF 70%. 6. Acute Kidney Injury improving will follow asked for Kidney Ultrasound. DVT Prophylaxis: Heparin gtt Discharge Planning once cleared by ID specialist and Cardiology Jesse Ingram MD Dec 16, 2017 08:43
[2017-12-16] MEDS: SODIUM CHLORIDE 0.9% FLUSH 10 ML FLUSH IV FLUSH SCH ×2 (09:00→20:40)
[2017-12-16] MEDS: FERROUS SULFATE 325 MG (65 MG ELEMENTAL IRON) TAB PO SCH ×2 (09:40→17:41)
[2017-12-16] MEDS: ASPIRIN 325 MG TAB PO SCH (09:40)
[2017-12-16] MEDS: PRAVASTATIN SOD 40 MG TAB PO SCH (09:40)
[2017-12-16] MEDS: PANTOPRAZOLE SOD 20 MG DELAYED RELEASE TAB PO SCH (09:40)
[2017-12-16] MEDS: DOCUSATE SODIUM 50 MG/SENNA 8.6 MG TAB PO SCH ×2 (09:40→20:39)
[2017-12-16] MEDS: TIMOLOL MALEATE 0.5% OPHT SOLN 5 ML BTL LEFT EYE SCH ×2 (09:41→20:40)
[2017-12-16 09:50] LABS: AUTOMATED NEUTROPHIL # 5.8 TH/MM3 (1.8-7.7); BASOPHIL % 0.4 % (0.0-2.0); EOSINOPHIL % 0.1 % (0.0-4.0); HEMATOCRIT 30.8 % (39.0-51.0); HEMOGLOBIN 10.6 GM/DL (13.0-17.0); LYMPH % 7.2 % (9.0-44.0); LYMPHOCYTE # 0.5 TH/MM3 (1.0-4.8); MEAN CELL VOLUME 91.1 FL (80.0-100.0); MEAN CORPUSCULAR HEMOGLOBIN 31.3 PG (27.0-34.0); MEAN CORPUSCULAR HGB CONC 34.3 % (32.0-36.0); MEAN PLATELET VOLUME 8.2 FL (7.0-11.0); MONOCYTE # 0.6 TH/MM3 (0-0.9); NEUT % 83.3 % (16.0-70.0); PLATELET COUNT 137 TH/MM3 (150-450); RED BLOOD COUNT 3.38 MIL/MM3 (4.50-5.90); RED CELL DISTRIBUTION WIDTH 14.7 % (11.6-17.2)
[2017-12-16] MEDS ORDERED: PNEUMOCOCCAL POLYVALENT INJ 25 MCG/0.5 ML SYR IM ONE (10:00)
[2017-12-16 10:08] LABS: BICARBONATE 22.4 MEQ/L (21.0-32.0); CALCIUM 7.9 MG/DL (8.5-10.1); CREATININE 1.57 MG/DL (0.60-1.30); MAGNESIUM 1.9 MG/DL (1.5-2.5); PHOSPHORUS 2.1 MG/DL (2.5-4.9)
[2017-12-16] MEDS ORDERED: cefTRIAXone INJ 2,000 MG in SODIUM CHLORIDE 0.9% INJ 100 ML IV SCH (14:00)
--- NOTE | 2017-12-16 16:24 | HHI.IDPN ---
Subjective Subjective Remarks much better fully awake and alert today urinates OK ESBL+ E.coli in 4/4 clx Allergies: Coded Allergies: No Known Allergies (Verified Adverse Reaction, Unknown, 12/14/17) Objective . Vital Signs Date Time Temp Pulse Resp B/P (MAP) Pulse Ox O2 Delivery O2 Flow Rate FiO2 12/16/17 11:57 98.4 83 18 124/70 (88) 96 12/16/17 10:53 Nasal Cannula 2.00 12/16/17 08:32 99.0 97 20 94/54 (67) 97 12/16/17 05:59 83 12/16/17 04:30 160 12/16/17 04:08 99.1 95 18 101/57 (72) 96 12/16/17 03:58 89 12/16/17 00:19 101.9 106 18 129/58 (81) 96 12/16/17 00:01 103 12/15/17 21:47 103 12/15/17 21:00 100.9 110 18 148/68 (94) 96 12/15/17 20:50 Nasal Cannula 2.00 12/15/17 19:50 Nasal Cannula 2.00 12/15/17 18:00 112 12/15/17 17:00 130 12/16/17 12/16/17 12/17/17 15:00 23:00 07:00 Intake Total 240 ml Balance 240 ml Intake Oral 240 ml . Laboratory Tests Test 12/14/17 20:05 12/14/17 22:35 12/15/17 00:53 12/16/17 09:28 White Blood Count 15.8 TH/MM3 20.6 TH/MM3 13.8 TH/MM3 7.0 TH/MM3 Red Blood Count 4.08 MIL/MM3 4.41 MIL/MM3 3.58 MIL/MM3 3.38 MIL/MM3 Hemoglobin 12.5 GM/DL 13.6 GM/DL 11.1 GM/DL 10.6 GM/DL Hematocrit 36.9 % 40.4 % 32.6 % 30.8 % Mean Corpuscular Volume 90.3 FL 91.6 FL 90.9 FL 91.1 FL Mean Corpuscular Hemoglobin 30.7 PG 30.9 PG 30.9 PG 31.3 PG Mean Corpuscular Hemoglobin Concent 34.0 % 33.7 % 34.0 % 34.3 % Red Cell Distribution Width 14.2 % 14.4 % 14.3 % 14.7 % Platelet Count 180 TH/MM3 203 TH/MM3 161 TH/MM3 137 TH/MM3 Mean Platelet Volume 8.3 FL 8.6 FL 8.0 FL 8.2 FL Neutrophils (%) (Auto) 88.0 % 85.1 % 83.3 % Lymphocytes (%) (Auto) 5.4 % 6.1 % 7.2 % Monocytes (%) (Auto) 6.4 % 8.7 % 9.0 % Eosinophils (%) (Auto) 0.0 % 0.0 % 0.1 % Basophils (%) (Auto) 0.2 % 0.1 % 0.4 % Neutrophils # (Auto) 13.9 TH/MM3 11.7 TH/MM3 5.8 TH/MM3 Lymphocytes # (Auto) 0.8 TH/MM3 0.8 TH/MM3 0.5 TH/MM3 Monocytes # (Auto) 1.0 TH/MM3 1.2 TH/MM3 0.6 TH/MM3 Eosinophils # (Auto) 0.0 TH/MM3 0.0 TH/MM3 0.0 TH/MM3 Basophils # (Auto) 0.0 TH/MM3 0.0 TH/MM3 0.0 TH/MM3 CBC Comment DIFF FINAL DIFF FINAL DIFF FINAL Differential Comment Laboratory Tests Test 12/14/17 20:05 12/14/17 20:35 12/14/17 23:52 12/15/17 00:15 Blood Urea Nitrogen 30 MG/DL Creatinine 1.87 MG/DL Random Glucose 223 MG/DL Total Protein 6.7 GM/DL Albumin 2.9 GM/DL Calcium Level 8.6 MG/DL Magnesium Level 1.9 MG/DL Alkaline Phosphatase 83 U/L Aspartate Amino Transf (AST/SGOT) 28 U/L Alanine Aminotransferase (ALT/SGPT) 15 U/L Total Bilirubin 1.2 MG/DL Sodium Level 139 MEQ/L Potassium Level 4.1 MEQ/L Chloride Level 106 MEQ/L Carbon Dioxide Level 22.0 MEQ/L Anion Gap 11 MEQ/L Estimat Glomerular Filtration Rate 34 ML/MIN Total Creatine Kinase 213 U/L Creatine Kinase MB 1.8 NG/ML Troponin I 1.37 NG/ML 1.39 NG/ML C-Reactive Protein 17.00 MG/DL B-Type Natriuretic Peptide 660 PG/ML Lipase 57 U/L Lactic Acid Level 3.2 mmol/L 2.3 mmol/L Test 12/15/17 05:30 12/16/17 09:28 Blood Urea Nitrogen 31 MG/DL 30 MG/DL Creatinine 1.73 MG/DL 1.57 MG/DL Random Glucose 129 MG/DL 151 MG/DL Total Protein 5.3 GM/DL Albumin 2.4 GM/DL Calcium Level 7.7 MG/DL 7.9 MG/DL Alkaline Phosphatase 68 U/L Aspartate Amino Transf (AST/SGOT) 21 U/L Alanine Aminotransferase (ALT/SGPT) 12 U/L Total Bilirubin 0.7 MG/DL Sodium Level 141 MEQ/L 142 MEQ/L Potassium Level 3.6 MEQ/L 3.6 MEQ/L Chloride Level 110 MEQ/L 110 MEQ/L Carbon Dioxide Level 21.8 MEQ/L 22.4 MEQ/L Anion Gap 9 MEQ/L 10 MEQ/L Estimat Glomerular Filtration Rate 37 ML/MIN 42 ML/MIN Hemoglobin A1c 5.6 % Troponin I 1.68 NG/ML Triglycerides Level 80 MG/DL Cholesterol Level 85 MG/DL LDL Cholesterol 37 MG/DL HDL Cholesterol 32.5 MG/DL Cholesterol/HDL Ratio 2.61 RATIO Phosphorus Level 2.1 MG/DL Magnesium Level 1.9 MG/DL Microbiology Date/Time Source Procedure Growth Status 12/14/17 20:35 Blood Peripheral Aerobic Blood Culture - Preliminary Gram Negative Yvan Resulted 12/14/17 20:35 Anaerobic Blood Culture - Preliminary Gram Negative Yvan Resulted 12/14/17 20:30 Blood Peripheral Aerobic Blood Culture - Preliminary Escherichia Coli ESBL Resulted 12/14/17 20:30 Anaerobic Blood Culture - Preliminary Gram Negative Yvan Resulted 12/15/17 00:15 Stool Stool Stool Occult Blood (LESLIE) - Final HEMOCCULT NEGATIVE Complete 12/14/17 20:35 Nasal Aspirate Influenza Types A,B Antigen (LESLIE) - Final NEGATIVE FOR FLU A AND B ANTIGEN.... Complete 12/14/17 22:47 Urine Random Urine Urine Culture - Preliminary Gram Negative Yvan Resulted Imaging Last Impressions Chest X-Ray 12/14/172002 Signed Impressions: Service Date/Time: Thursday, December 14, 2017 20:54 - CONCLUSION: No evidence of acute cardiopulmonary disease. Alexander Mariano MD Physical Exam CONSTITUTIONAL/GENERAL: This is an adequately nourished patient, in no apparent distress. TUBES/LINES/DRAINS: SKIN: No jaundice, rashes, or lesions. Ecchymoses on upper extremities. No wounds seen anteriorly. Skin temperature appropriate. Not diaphoretic. CARDIOVASCULAR: Regular rate and rhythm without murmurs, gallops, or rubs. No JVD. Peripheral pulses symmetric. RESPIRATORY/CHEST: Symmetric, unlabored respirations. Clear to auscultation. Breath sounds equal bilaterally. No wheezes, rales, or rhonchi. GASTROINTESTINAL: Abdomen soft, non-tender, nondistended. No hepato- spleIncontinent of foul smelling urineFoley catheter in place. MUSCULOSKELETAL: Extremities without clubbing, cyanosis, or edema. No joint tenderness or effusion noted. No calf tenderness. No mottling or clubbing. LYMPHATICS: No palpable cervical or supraclavicular adenopathy : non palpable bladder, dark foul smeelling urine in urinal NEUROLOGICAL: fully awake and alert . Motor and sensory grossly within normal limits. Follows commands with difficulties. Speech clear . Moves all extremities. PSYCHIATRIC: unable to assess Assessment & Plan Remarks UTI, sepsis 2/2 ESBL + E.coli HIgh grade ESBL+ E.coli bacteremia 2/2 UTI Improved renal fnx Leukocytosis - improved Plan: Ertapenem x 2 weeks unless oral options available (Bactrim, cipro) fu blood and urine isolate untill final Juliette Pedersen MD Dec 16, 2017 16:24
[2017-12-16] MEDS: ERTAPENEM INJ 1,000 MG in SODIUM CHLORIDE 0.9% INJ 100 ML IV SCH (17:24)
[2017-12-16] MEDS: TAMSULOSIN HCL 0.4 MG CAP PO SCH (20:39)
[2017-12-17] VITALS (11 sets, daily range): BP systolic 105–173; BP diastolic 60–85; PULSE 68–95; RESP 18–20; TEMP 97.1–99.3; O2SAT 96–99
[2017-12-17] MEDS: ACETAMINOPHEN 325 MG TAB PO PRN (00:56)
[2017-12-17 06:44] LABS: HEMATOCRIT 32.1 % (39.0-51.0); HEMOGLOBIN 11.2 GM/DL (13.0-17.0); MEAN CELL VOLUME 90.6 FL (80.0-100.0); MEAN CORPUSCULAR HEMOGLOBIN 31.5 PG (27.0-34.0); MEAN CORPUSCULAR HGB CONC 34.8 % (32.0-36.0); PLATELET COUNT 145 TH/MM3 (150-450); RED BLOOD COUNT 3.54 MIL/MM3 (4.50-5.90); RED CELL DISTRIBUTION WIDTH 14.7 % (11.6-17.2); WHITE BLOOD COUNT 4.9 TH/MM3 (4.0-11.0)
[2017-12-17 07:00] LABS: BICARBONATE 23.2 MEQ/L (21.0-32.0); CALCIUM 7.9 MG/DL (8.5-10.1); CREATININE 1.31 MG/DL (0.60-1.30)
[2017-12-17] MEDS: INSULIN ASPART SUPPLEMENTAL SCALE SQ SCH ×4 (08:00→21:00)
--- NOTE | 2017-12-17 08:07 | HHI.PR ---
Subjective Remarks This is a pleasant 87 y/o Male with Depression, Bipolar disorder, BPH, Hypertension, Hyperlipidemia, who came due to generalized weakness x1 day. Also notes abdominal pain, generalized, intermittent, 6/10, non-radiating. On arrival, BP 150/90, HR 110, O2 sat 96% on 2L NC, Temp 99.1. WBC 15.8. Creatinine 1.87. BS 223. Lactic Acid 3.2. Troponin 1.37. In P6 60. INR 1.2. UA positive for UTI. CXR with no acute findings. Started on Heparin gtt in ER. 12/15: Seen in his bedroom,no nausea, vomit or diarrhea, he is been seen by Cardiology wit diagnosis of atypical chest pain, has old LBBB, trending up Cardiac enzyme, recommended for left Heart Catheterization, the patient refused this procedure. was recommended to continue Heparin for the next 48 hours, Aspirin and Plavix. BB, Statins, long acting Nitrates and asked for Echocardiogram. 12/16: Seen by ID specialist later Urine and blood culture positive for E Coli ESBL now on Ertapenem. recommended by ID specialist for Ertapenem for two weeks, not yet cleared by ID specialist. 12/17: Seen by ID specialist no oral options for antibiotics, but the patient may go once outpatient antibiotics arranged. No nausea, vomit or diarrhea. Objective Vital Signs Date Time Temp Pulse Resp B/P (MAP) Pulse Ox O2 Delivery O2 Flow Rate FiO2 12/17/17 04:33 97.9 71 18 136/67 (90) 97 12/17/17 04:24 83 12/17/17 00:50 97.5 94 18 145/67 (93) 96 12/17/17 00:26 88 12/16/17 20:00 74 12/16/17 20:00 Room Air 2.00 12/16/17 19:14 98.8 80 18 129/80 (96) 96 12/16/17 17:46 98.9 90 18 100/64 (76) 98 12/16/17 11:57 98.4 83 18 124/70 (88) 96 12/16/17 10:53 Nasal Cannula 2.00 12/16/17 08:32 99.0 97 20 94/54 (67) 97 I/O 12/16/17 12/16/17 12/16/17 12/17/17 12/17/17 1/17/18 07:00 15:00 23:00 07:00 15:00 23:00 Intake Total 240 ml 200 ml Output Total 100 ml 100 ml Balance -100 ml 240 ml -100 ml 200 ml Intake Oral 240 ml 200 ml Output Urine Total 100 ml 100 ml # Voids 2 1 2 # Bowel Movements 1 2 Result Diagram: 12/17/17 0458 12/17/17 0458 Imaging Last Impressions Chest X-Ray 12/14/172002 Signed Impressions: Service Date/Time: Thursday, December 14, 2017 20:54 - CONCLUSION: No evidence of acute cardiopulmonary disease. Alexander Mariano MD Procedures None Other Results Laboratory Tests Test 12/14/17 20:05 12/14/17 22:35 12/14/17 22:47 12/14/17 23:52 Total Creatine Kinase 213 U/L Creatine Kinase MB 1.8 NG/ML C-Reactive Protein 17.00 MG/DL B-Type Natriuretic Peptide 660 PG/ML Lipase 57 U/L Prothrombin Time 11.5 SEC Prothromb Time International Ratio 1.1 RATIO Urine Color YELLOW Urine Turbidity HAZY Urine pH 6.0 Urine Specific [place] 1.016 Urine Protein 100 mg/dL Urine Glucose (UA) NEG mg/dL Urine Ketones NEG mg/dL Urine Occult Blood MOD Urine Nitrite NEG Urine Bilirubin NEG Urine Urobilinogen LESS THAN 2.0 MG/DL Urine Leukocyte Esterase LARGE Urine RBC 14 /hpf Urine WBC /hpf Urine Squamous Epithelial Cells 6 /hpf Urine Amorphous Sediment RARE Urine Bacteria MANY /hpf Microscopic Urinalysis Comment CULTURE INDICATED Lactic Acid Level 2.3 mmol/L Test 12/15/17 05:30 12/16/17 09:28 12/17/17 04:58 Hemoglobin A1c 5.6 % Blood Urea Nitrogen 31 MG/DL 30 MG/DL 31 MG/DL Creatinine 1.73 MG/DL 1.57 MG/DL 1.31 MG/DL Random Glucose 129 MG/DL 151 MG/DL 143 MG/DL Total Protein 5.3 GM/DL Albumin 2.4 GM/DL Calcium Level 7.7 MG/DL 7.9 MG/DL 7.9 MG/DL Alkaline Phosphatase 68 U/L Aspartate Amino Transf (AST/SGOT) 21 U/L Alanine Aminotransferase (ALT/SGPT) 12 U/L Total Bilirubin 0.7 MG/DL Sodium Level 141 MEQ/L 142 MEQ/L 142 MEQ/L Potassium Level 3.6 MEQ/L 3.6 MEQ/L 3.4 MEQ/L Chloride Level 110 MEQ/L 110 MEQ/L 112 MEQ/L Carbon Dioxide Level 21.8 MEQ/L 22.4 MEQ/L 23.2 MEQ/L Troponin I 1.68 NG/ML Triglycerides Level 80 MG/DL Cholesterol Level 85 MG/DL LDL Cholesterol 37 MG/DL HDL Cholesterol 32.5 MG/DL Cholesterol/HDL Ratio 2.61 RATIO Neutrophils (%) (Auto) 83.3 % Lymphocytes (%) (Auto) 7.2 % Monocytes (%) (Auto) 9.0 % Eosinophils (%) (Auto) 0.1 % Basophils (%) (Auto) 0.4 % Neutrophils # (Auto) 5.8 TH/MM3 Lymphocytes # (Auto) 0.5 TH/MM3 Monocytes # (Auto) 0.6 TH/MM3 Eosinophils # (Auto) 0.0 TH/MM3 Basophils # (Auto) 0.0 TH/MM3 CBC Comment DIFF FINAL Differential Comment Phosphorus Level 2.1 MG/DL Magnesium Level 1.9 MG/DL White Blood Count 4.9 TH/MM3 Red Blood Count 3.54 MIL/MM3 Hemoglobin 11.2 GM/DL Hematocrit 32.1 % Mean Corpuscular Volume 90.6 FL Mean Corpuscular Hemoglobin 31.5 PG Mean Corpuscular Hemoglobin Concent 34.8 % Red Cell Distribution Width 14.7 % Platelet Count 145 TH/MM3 Mean Platelet Volume 9.0 FL Activated Partial Thromboplast Time 38.7 SEC Anion Gap 7 MEQ/L Estimat Glomerular Filtration Rate 52 ML/MIN Objective Remarks GENERAL: No acute distress. HEENT: PERRLA, EOMI. CARDIOVASCULAR: Regular rate and rhythm. No obvious murmurs to auscultation. No chest tenderness to palpation. RESPIRATORY: No obvious rhonchi or wheezing. Clear to auscultation. Breath sounds equal bilaterally. GASTROINTESTINAL: Abdomen soft, mild epigastric tenderness palpation, nondistended. BS normal. MUSCULOSKELETAL: Extremities without clubbing, cyanosis, or edema. No obvious deformities. NEUROLOGICAL: Awake, alert and oriented x4. No focal neurologic deficits. Moving both upper and lower extremities spontaneously. Medications and IVs Current Medications Medications (Trade) Dose Ordered Sig/Elizabeth Route Start Time Stop Time Status Last Admin Heparin Sodium/ Dextrose 250 ml @ 8 mls/hr TITRATE PRN IV 12/14/17 22:00 12/16/17 07:39 (NS Flush) 2 ml UNSCH PRN IV FLUSH 12/14/17 22:15 (NS Flush) 2 ml BID IV FLUSH 12/15/17 09:00 12/16/17 20:40 (Zofran Inj) 4 mg Q6H PRN IVP 12/14/17 22:15 (Tylenol) 650 mg Q6H PRN PO 12/14/17 22:15 12/17/17 00:56 ([place] 5-325 Mg) 1 tab Q4H PRN PO 12/14/17 22:15 (Morphine Inj) 2 mg Q3H PRN IV PUSH 12/14/17 22:15 (Gena-Colace) 1 tab BID PO 12/15/17 09:00 12/16/17 20:39 (Milk Of Magnesia Liq) 30 ml Q12H PRN PO 12/14/17 22:15 (Senokot) 17.2 mg Q12H PRN PO 12/14/17 22:15 (Dulcolax Supp) 10 mg DAILY PRN RECTAL 12/14/17 22:15 (Lactulose Liq) 30 ml DAILY PRN PO 12/14/17 22:15 (Aspirin) 325 mg DAILY PO 12/15/17 09:00 12/16/17 09:40 (Ferrous Sulfate) 325 mg BIDPC PO 12/15/17 09:00 12/16/17 17:41 (Pravachol) 40 mg DAILY PO 12/15/17 09:00 12/16/17 09:40 (Flomax) 0.4 mg HS PO 12/15/17 21:00 12/16/17 20:39 (Timoptic 0.5% Opth Soln) 1 drop BID LEFT EYE 12/14/17 22:15 12/16/17 20:40 (Protonix) 20 mg DAILY PO 12/15/17 09:00 12/16/17 09:40 (D50w (Vial) Inj) 50 ml UNSCH PRN IV PUSH 12/15/17 00:15 (Glucagon Inj) 1 mg UNSCH PRN OTHER 12/15/17 00:15 (NovoLOG SUPPLEMENTAL SCALE) 1 ACHS SLIDING SCALE SQ 12/15/17 08:00 12/16/17 20:39 (Nitroglycerin 2% Oint) 0.5 inch Q6HR PRN TOPICAL 12/15/17 00:15 (Duoneb Neb) 1 ampule Q4HR NEB PRN NEB 12/15/17 00:30 Ertapenem 1000 mg/ Sodium Chloride 100 ml @ 200 mls/hr Q24H IV 12/15/17 18:00 12/16/17 17:24 A/P Assessment and Plan 1. NSTEMI: seen by Cardiology wit diagnosis of atypical chest pain, has old LBBB, trending up Cardiac enzyme, recommended for left Heart Catheterization, the patient refused this procedure. was recommended to continue Heparin for the next 48 hours, Aspirin and Plavix. BB, Statins, long acting Nitrates and Echocardiogram EF 70%. 2. Sepsis: Temp 99.1, HR 110, WBC 15.8, Lactic Acid 3.2, Source-UTI. S/p Blood Cultures, start Rocephin IV, at this time blood culture positive for Gram Negative Bacteremia, later sensitivity found E Coli ESBL now on Ertapenem for the next two weeks contemplated by ID specialist, no oral options recommended to discharge once outpatient infusion center arranged. 3. UTI: U/a w/ UTI, awaiting for culture. E Coli positive. 4. Hyperglycemia: BS 223, no reported h/o DM, sliding scale continue, Hemoglobin A1C 5.6 5. Elevated BNP: BNP 660, no h/o CHF. CXR w/ no acute findings. Echocardiogram EF 70%. 6. Acute Kidney Injury improving today creatinine 1.31 DVT Prophylaxis: Heparin gtt Discharge Planning cleared by ID specialist once arranged outpatient antibiotics. Jesse Ingram MD Dec 17, 2017 08:07
[2017-12-17] MEDS: ASPIRIN 325 MG TAB PO SCH (09:43)
[2017-12-17] MEDS: PANTOPRAZOLE SOD 20 MG DELAYED RELEASE TAB PO SCH (09:43)
[2017-12-17] MEDS: DOCUSATE SODIUM 50 MG/SENNA 8.6 MG TAB PO SCH ×2 (09:43→21:12)
[2017-12-17] MEDS: FERROUS SULFATE 325 MG (65 MG ELEMENTAL IRON) TAB PO SCH ×2 (09:43→18:46)
[2017-12-17] MEDS: TIMOLOL MALEATE 0.5% OPHT SOLN 5 ML BTL LEFT EYE SCH ×2 (09:43→21:13)
[2017-12-17] MEDS: PRAVASTATIN SOD 40 MG TAB PO SCH (09:43)
[2017-12-17] MEDS: SODIUM CHLORIDE 0.9% FLUSH 10 ML FLUSH IV FLUSH SCH ×2 (09:46→21:13)
--- NOTE | 2017-12-17 10:13 | HHI.FF ---
Infusion Therapy Location of Infusion Therapy: Home [facility] Care IV Infusion Order Patient Information Patient Weight 73.2 kg Diagnosis: Coded Allergies: No Known Allergies (Verified Adverse Reaction, Unknown, 12/14/17) Administer Medication Ertapenem 1 gram IV q 24 hours Start Treatment: Dec 17, 2017 Stop Treatment: Dec 28, 2017 Additional Information Venous access: PICC Line Additional Instructions [x] Peripheral flush and dressing changes per protocol [x] Implanted port and central apprentice lineman third step: * Implanted port: 10 ml Normal Saline followed by 5 ml Heparin 100 units/ml Heparin flush after each use and monthly to maintain. [] May leave port accessed during therapy. [] May leave peripheral site accessed for duration of therapy. [x] If patient has SOB or respiratory distress, check oxygen saturation. If less than 90% or clinical signs of respiratory distress, administer oxygen at 2 L/min. via nasal cannula and notify physician. [x] Anaphylaxis/Reaction orders: * Stop infusion. * Keep IV line open with saline flush. * Notify physician. * Monitor vital signs every 15 minutes until symptoms resolve. * Check Oxygen saturation; Oxygen at 2 L/min. via nasal cannula if less than 90% or clinical signs of respiratory distress. * Administer diphenhydramine (Benadryl) 25 mg IV STAT, (unless patient has received as pre-med). May repeat once, if necessary. * Solu-Cortef 250 mg IVP over 30-60 seconds, use 100 mg vials for each dissolution. * Epinephrine (1mg/1 ml) 0.3 mg subcutaneously or IVP now with any signs of respiratory distress. * Check with physician for new additional pre-med orders if patient is re- challenged or re-treated. [x] May remove PICC line when treatment complete, after confirming with Physician. [x] If the patient is admitted to the hospital, the ED, or transferred via [facility] , complete transfer form including medication reconciliation order sheet. Laboratory Tests Weekly Labs: CMP, Creatinine Juliette Pedersen MD Dec 17, 2017 10:13
--- NOTE | 2017-12-17 10:14 | HHI.PR ---
Addendum to Inpatient Note Additional Information Pt is OK to go from ID standpoint once his OPAT is arranged no oral optins (R both to cipro, bactrim) Juliette Pedersen MD Dec 17, 2017 10:14
[2017-12-17] MEDS ORDERED: APIXABAN 2.5 MG TABLET PO SCH (13:45)
[2017-12-17] MEDS ORDERED: ASPI-516 CHEW (13:50)
[2017-12-17] MEDS ORDERED: CARV3.125 PO (13:50)
--- NOTE | 2017-12-17 13:50 | HHI.FF ---
Face to Face Verification Diagnosis: (1) NSTEMI (non-ST elevated myocardial infarction) (2) Sepsis (3) UTI (urinary tract infection) Home Health Nursing Order: Medical education Signs/symptoms of disease process Medication education-adverse effect Nursing assessment with vital signs IV medication administration I have seen patient Reza Kauffman on 12/17/17. My clinical findings support the need for the requested home health care services because: Ltd mobility - disease progression I certify that my clinical findings support that this patient is homebound because: Unsafe to leave home unassisted Jesse Ingram MD Dec 17, 2017 13:50
[2017-12-17] MEDS ORDERED: PLAV75TA29 PO (13:54)
--- NOTE | 2017-12-17 13:58 | HHI.DS ---
Discharge Summary Admission Date Dec 14, 2017 at 22:03 Discharge Date: Dec 17, 2017 Admitting Diagnosis Sepsis, Non-STEMI (1) NSTEMI (non-ST elevated myocardial infarction) ICD Code: I21.4 - Non-ST elevation (NSTEMI) myocardial infarction Diagnosis: Principal (2) Sepsis ICD Code: A41.9 - Sepsis, unspecified organism Diagnosis: Principal (3) UTI (urinary tract infection) ICD Code: N39.0 - Urinary tract infection, site not specified Diagnosis: Principal (4) STEVEN (acute kidney injury) ICD Code: N17.9 - Acute kidney failure, unspecified Diagnosis: Principal (5) Hyperglycemia ICD Code: R73.9 - Hyperglycemia, unspecified Diagnosis: Principal (6) Elevated brain natriuretic peptide (BNP) level ICD Code: R79.89 - Other specified abnormal findings of blood chemistry Diagnosis: Principal Procedures None Brief History - From Admission This is an 87-year-old male with a PMH of Depression, Bipolar Disorder, BPH, HTN and Hyperlipidemia who presented to the ER with complaints of generalized weakness x1 day. Today, symptoms progressively worse, associated w/ few episodes of nausea/vomiting. Also notes abdominal pain, generalized, intermittent, 6/10, non-radiating. Denies fever, chills, chest pain or sick contacts. On arrival, BP 150/90, HR 110, O2 sat 96% on 2L NC, Temp 99.1. WBC 15.8. Creatinine 1.87. BS 223. Lactic Acid 3.2. Troponin 1.37. In P6 60. INR 1.2. UA positive for UTI. CXR with no acute findings. Started on Heparin gtt in ER. CBC/BMP: 12/17/17 0458 12/17/17 0458 Significant Findings Laboratory Tests Test 12/14/17 20:05 12/14/17 20:35 12/14/17 22:35 12/14/17 22:47 White Blood Count 15.8 TH/MM3 (4.0-11.0) 20.6 TH/MM3 (4.0-11.0) Red Blood Count 4.08 MIL/MM3 (4.50-5.90) 4.41 MIL/MM3 (4.50-5.90) Hemoglobin 12.5 GM/DL (13.0-17.0) Hematocrit 36.9 % (39.0-51.0) Neutrophils (%) (Auto) 88.0 % (16.0-70.0) Lymphocytes (%) (Auto) 5.4 % (9.0-44.0) Neutrophils # (Auto) 13.9 TH/MM3 (1.8-7.7) Lymphocytes # (Auto) 0.8 TH/MM3 (1.0-4.8) Monocytes # (Auto) 1.0 TH/MM3 (0-0.9) Prothrombin Time 11.7 SEC (9.8-11.6) Activated Partial Thromboplast Time 22.1 SEC (24.3-30.1) Blood Urea Nitrogen 30 MG/DL (7-18) Creatinine 1.87 MG/DL (0.60-1.30) Random Glucose 223 MG/DL (74-106) Albumin 2.9 GM/DL (3.4-5.0) Total Bilirubin 1.2 MG/DL (0.2-1.0) Estimat Glomerular Filtration Rate 34 ML/MIN (>89) Troponin I 1.37 NG/ML (0.02-0.05) C-Reactive Protein 17.00 MG/DL (0.00-0.30) B-Type Natriuretic Peptide 660 PG/ML (0-100) Lipase 57 U/L (73-393) Lactic Acid Level 3.2 mmol/L (0.4-2.0) Urine Turbidity HAZY (CLEAR) Urine Protein 100 mg/dL (NEG-TRACE) Urine Occult Blood MOD (NEG) Urine Leukocyte Esterase LARGE (NEG) Urine RBC 14 /hpf (0-3) Urine Bacteria MANY /hpf (NONE) Test 12/14/17 23:52 12/15/17 00:15 12/15/17 00:53 12/15/17 05:30 Lactic Acid Level 2.3 mmol/L (0.4-2.0) Troponin I 1.39 NG/ML (0.02-0.05) 1.68 NG/ML (0.02-0.05) White Blood Count 13.8 TH/MM3 (4.0-11.0) Red Blood Count 3.58 MIL/MM3 (4.50-5.90) Hemoglobin 11.1 GM/DL (13.0-17.0) Hematocrit 32.6 % (39.0-51.0) Neutrophils (%) (Auto) 85.1 % (16.0-70.0) Lymphocytes (%) (Auto) 6.1 % (9.0-44.0) Monocytes (%) (Auto) 8.7 % (0.0-8.0) Neutrophils # (Auto) 11.7 TH/MM3 (1.8-7.7) Lymphocytes # (Auto) 0.8 TH/MM3 (1.0-4.8) Monocytes # (Auto) 1.2 TH/MM3 (0-0.9) Activated Partial Thromboplast Time 46.2 SEC (24.3-30.1) Blood Urea Nitrogen 31 MG/DL (7-18) Creatinine 1.73 MG/DL (0.60-1.30) Random Glucose 129 MG/DL (74-106) Total Protein 5.3 GM/DL (6.4-8.2) Albumin 2.4 GM/DL (3.4-5.0) Calcium Level 7.7 MG/DL (8.5-10.1) Chloride Level 110 MEQ/L (98-107) Estimat Glomerular Filtration Rate 37 ML/MIN (>89) Cholesterol Level 85 MG/DL (120-200) HDL Cholesterol 32.5 MG/DL (40.0-60.0) Test 12/15/17 12:40 12/16/17 06:56 12/16/17 09:28 12/16/17 14:38 Activated Partial Thromboplast Time 40.8 SEC (24.3-30.1) 36.9 SEC (24.3-30.1) 39.4 SEC (24.3-30.1) Red Blood Count 3.38 MIL/MM3 (4.50-5.90) Hemoglobin 10.6 GM/DL (13.0-17.0) Hematocrit 30.8 % (39.0-51.0) Platelet Count 137 TH/MM3 (150-450) Neutrophils (%) (Auto) 83.3 % (16.0-70.0) Lymphocytes (%) (Auto) 7.2 % (9.0-44.0) Monocytes (%) (Auto) 9.0 % (0.0-8.0) Lymphocytes # (Auto) 0.5 TH/MM3 (1.0-4.8) Blood Urea Nitrogen 30 MG/DL (7-18) Creatinine 1.57 MG/DL (0.60-1.30) Random Glucose 151 MG/DL (74-106) Calcium Level 7.9 MG/DL (8.5-10.1) Phosphorus Level 2.1 MG/DL (2.5-4.9) Chloride Level 110 MEQ/L (98-107) Estimat Glomerular Filtration Rate 42 ML/MIN (>89) Test 12/16/17 22:32 12/17/17 04:58 Activated Partial Thromboplast Time 40.5 SEC (24.3-30.1) 38.7 SEC (24.3-30.1) Red Blood Count 3.54 MIL/MM3 (4.50-5.90) Hemoglobin 11.2 GM/DL (13.0-17.0) Hematocrit 32.1 % (39.0-51.0) Platelet Count 145 TH/MM3 (150-450) Blood Urea Nitrogen 31 MG/DL (7-18) Creatinine 1.31 MG/DL (0.60-1.30) Random Glucose 143 MG/DL (74-106) Calcium Level 7.9 MG/DL (8.5-10.1) Potassium Level 3.4 MEQ/L (3.5-5.1) Chloride Level 112 MEQ/L (98-107) Estimat Glomerular Filtration Rate 52 ML/MIN (>89) Imaging Last Impressions Chest X-Ray 12/14/172002 Signed Impressions: Service Date/Time: Thursday, December 14, 2017 20:54 - CONCLUSION: No evidence of acute cardiopulmonary disease. Alexander Mariano MD PE at Discharge GENERAL: No acute distress. HEENT: PERRLA, EOMI. CARDIOVASCULAR: Regular rate and rhythm. No obvious murmurs to auscultation. No chest tenderness to palpation. RESPIRATORY: No obvious rhonchi or wheezing. Clear to auscultation. Breath sounds equal bilaterally. GASTROINTESTINAL: Abdomen soft, mild epigastric tenderness palpation, nondistended. BS normal. MUSCULOSKELETAL: Extremities without clubbing, cyanosis, or edema. No obvious deformities. NEUROLOGICAL: Awake, alert and oriented x4. No focal neurologic deficits. Moving both upper and lower extremities spontaneously. Hospital Course This is a pleasant 87 y/o Male with Depression, Bipolar disorder, BPH, Hypertension, Hyperlipidemia, who came due to generalized weakness x1 day. Also notes abdominal pain, generalized, intermittent, 6/10, non-radiating. On arrival, BP 150/90, HR 110, O2 sat 96% on 2L NC, Temp 99.1. WBC 15.8. Creatinine 1.87. BS 223. Lactic Acid 3.2. Troponin 1.37. In P6 60. INR 1.2. UA positive for UTI. CXR with no acute findings. Started on Heparin gtt in ER. 12/15: Seen in his bedroom,no nausea, vomit or diarrhea, he is been seen by Cardiology wit diagnosis of atypical chest pain, has old LBBB, trending up Cardiac enzyme, recommended for left Heart Catheterization, the patient refused this procedure. was recommended to continue Heparin for the next 48 hours, Aspirin and Plavix. BB, Statins, long acting Nitrates and asked for Echocardiogram. 12/16: Seen by ID specialist later Urine and blood culture positive for E Coli ESBL now on Ertapenem. recommended by ID specialist for Ertapenem for two weeks, not yet cleared by ID specialist. 12/17: Seen by ID specialist no oral options for antibiotics, but the patient may go once outpatient antibiotics arranged. No nausea, vomit or diarrhea. he will be discharge on Long acting Nitrates, Beta Blockers, Statin, Aspirin and Plavix. Assessment and Plan 1. NSTEMI: seen by Cardiology wit diagnosis of atypical chest pain, has old LBBB, trending up Cardiac enzyme, recommended for left Heart Catheterization, the patient refused this procedure. was recommended to continue Heparin for the next 48 hours, Aspirin and Plavix. BB, Statins, long acting Nitrates and Echocardiogram EF 70%. 2. Sepsis: Temp 99.1, HR 110, WBC 15.8, Lactic Acid 3.2, Source-UTI. S/p Blood Cultures, start Rocephin IV, at this time blood culture positive for Gram Negative Bacteremia, later sensitivity found E Coli ESBL now on Ertapenem for the next two weeks contemplated by ID specialist, no oral options recommended to discharge once outpatient infusion center arranged. 3. UTI: U/a w/ UTI, awaiting for culture. E Coli positive. 4. Hyperglycemia: BS 223, no reported h/o DM, sliding scale continue, Hemoglobin A1C 5.6 5. Elevated BNP: BNP 660, no h/o CHF. CXR w/ no acute findings. Echocardiogram EF 70%. 6. Acute Kidney Injury improving today creatinine 1.31 DVT Prophylaxis: Heparin gtt Discharge Planning cleared by ID specialist once arranged outpatient antibiotics. Pt Condition on Discharge: Good Discharge Disposition: Disch w/ Home Health Serv Discharge Time: > 30 minutes Discharge Instructions DIET: Follow Instructions for: Heart Healthy Diet Activities you can perform: Regular-No Restrictions Jesse Ingram MD Dec 17, 2017 13:58
[2017-12-17] MEDS ORDERED: ISOS30TA3 PO (14:00)
[2017-12-17] MEDS: ISOSORBIDE MONONITRATE 30 MG TAB PO SCH (14:30)
[2017-12-17] MEDS: CARVEDILOL 3.125 MG TAB PO SCH ×2 (14:30→21:12)
[2017-12-17] MEDS: CLOPIDOGREL 75 MG TAB PO SCH (14:31)
[2017-12-17] MEDS ORDERED: EPIN1INJ21 IV PUSH (14:56)
[2017-12-17] MEDS ORDERED: EPIN1INJ21 SQ (14:56)
[2017-12-17] MEDS ORDERED: INVA1INJ IV (14:56)
[2017-12-17] MEDS ORDERED: SOLU250I IV PUSH (14:56)
[2017-12-17] MEDS ORDERED: ERTAPENEM SODIUM 1000 MG VIAL IM SCH (16:15)
[2017-12-17] MEDS: ERTAPENEM INJ 1,000 MG in SODIUM CHLORIDE 0.9% INJ 100 ML IV SCH (18:46)
[2017-12-17] MEDS: TAMSULOSIN HCL 0.4 MG CAP PO SCH (21:12)
[2017-12-18 00:01] VITALS: PULSE 80
[2017-12-18] MEDS: ACETAMINOPHEN 325 MG TAB PO PRN (00:05)
[2017-12-18 00:06] VITALS: BP 126/73; PULSE 83; RESP 16; TEMP 97.5; O2SAT 97
[2017-12-18 05:28] VITALS: BP 158/75; PULSE 69; RESP 16; TEMP 98.5; O2SAT 94
[2017-12-18] MEDS: ISOSORBIDE MONONITRATE 30 MG TAB PO SCH (05:31)
[2017-12-18] MEDS: INSULIN ASPART SUPPLEMENTAL SCALE SQ SCH ×2 (08:00→12:00)
[2017-12-18] MEDS: CLOPIDOGREL 75 MG TAB PO SCH (08:38)
[2017-12-18] MEDS: FERROUS SULFATE 325 MG (65 MG ELEMENTAL IRON) TAB PO SCH (08:38)
[2017-12-18] MEDS: DOCUSATE SODIUM 50 MG/SENNA 8.6 MG TAB PO SCH (08:38)
[2017-12-18] MEDS: CARVEDILOL 3.125 MG TAB PO SCH (08:38)
[2017-12-18] MEDS: TIMOLOL MALEATE 0.5% OPHT SOLN 5 ML BTL LEFT EYE SCH (08:38)
[2017-12-18] MEDS: ASPIRIN 325 MG TAB PO SCH (08:38)
[2017-12-18] MEDS: PANTOPRAZOLE SOD 20 MG DELAYED RELEASE TAB PO SCH (08:38)
[2017-12-18] MEDS: PRAVASTATIN SOD 40 MG TAB PO SCH (08:38)
[2017-12-18] MEDS: SODIUM CHLORIDE 0.9% FLUSH 10 ML FLUSH IV FLUSH SCH (08:40)
[2017-12-18 09:25] VITALS: BP 153/86; PULSE 81; RESP 20; TEMP 97.3; O2SAT 96
--- NOTE | 2017-12-18 13:00 | HHI.PR ---
Subjective Remarks Follow-up non-ST elevation SC/sepsis 12/18/17-patient seen and examined, had some run of V. tach however denies any chest pain or shortness of breath. Currently afebrile. Objective Vitals Vital Signs Date Time Temp Pulse Resp B/P (MAP) Pulse Ox O2 Delivery O2 Flow Rate FiO2 12/18/17 09:25 97.3 81 20 153/86 (108) 96 12/18/17 09:25 Room Air 12/18/17 05:28 98.5 69 16 158/75 (102) 94 12/18/17 00:06 97.5 83 16 126/73 (90) 97 12/18/17 00:01 80 12/17/17 23:00 80 12/17/17 22:00 68 12/17/17 21:09 97.8 74 18 131/71 (91) 98 12/17/17 20:03 72 12/17/17 19:48 Room Air 12/17/17 18:00 98.0 71 20 120/71 (87) 99 I/O 12/17/17 12/17/17 12/17/17 12/18/17 12/18/17 12/18/17 07:00 15:00 23:00 07:00 15:00 23:00 Intake Total 200 ml 380 ml 375 ml Output Total 100 ml Balance 200 ml 380 ml 275 ml Intake Oral 200 ml 375 ml IV Total 380 ml Output Urine Total 100 ml # Voids 2 2 1 # Bowel Movements 2 1 Result Diagram: 12/17/17 0458 12/17/17 0458 Imaging Last Impressions Chest X-Ray 12/14/172002 Signed Impressions: Service Date/Time: Thursday, December 14, 2017 20:54 - CONCLUSION: No evidence of acute cardiopulmonary disease. Alexander Mariano MD Objective Remarks GENERAL: NAD SKIN: Warm and dry. HEAD: Normocephalic. EYES: No scleral icterus. No injection or drainage. NECK: Supple, trachea midline. No JVD or lymphadenopathy. CARDIOVASCULAR: Regular rate and rhythm without murmurs, gallops, or rubs. RESPIRATORY: Breath sounds equal bilaterally. No accessory muscle use. GASTROINTESTINAL: Abdomen soft, non-tender, nondistended. MUSCULOSKELETAL: No cyanosis, or edema. BACK: Nontender without obvious deformity. No CVA tenderness. Procedures None A/P Problem List: (1) NSTEMI (non-ST elevated myocardial infarction) ICD Code: I21.4 - Non-ST elevation (NSTEMI) myocardial infarction (2) Sepsis ICD Code: A41.9 - Sepsis, unspecified organism (3) UTI (urinary tract infection) ICD Code: N39.0 - Urinary tract infection, site not specified (4) STEVEN (acute kidney injury) ICD Code: N17.9 - Acute kidney failure, unspecified (5) Hyperglycemia ICD Code: R73.9 - Hyperglycemia, unspecified (6) Elevated brain natriuretic peptide (BNP) level ICD Code: R79.89 - Other specified abnormal findings of blood chemistry Assessment and Plan 87 year-old man with 1. NSTEMI: seen by Cardiology wit diagnosis of atypical chest pain, has old LBBB, trending up Cardiac enzyme, recommended for left Heart Catheterization,however the patient refused this procedure. Currently on Aspirin and Plavix. BB, Statins, long acting Nitrates and Echocardiogram EF 70%. . Off Heparin drip 2. Sepsis/ Gram Negative Bacteremia d/t E Coli ESBL. now on Ertapenem x 2 weeks per ID 3. UTI: U/a w/ UTI 4. Hyperglycemia:Hemoglobin A1C 5.6 5. Elevated BNP: BNP 660, no h/o CHF. CXR w/ no acute findings. Echocardiogram EF 70%. 6. Acute Kidney Injury improving DVT Prophylaxis: Heparin gtt Discharge Planning d/c home with [facility] Jacinto Resendiz MD Dec 18, 2017 13:00
[2017-12-18 13:20] VITALS: PULSE 77; RESP 18; TEMP 98.1; O2SAT 97
== END 2017-12-18 14:49 | disposition home health service (06) | DRG 872 ==
LOC: NEPE 18:06 → NEDA 22:03 → HCIN 12-15 00:36
PROVIDERS: ADMIT Hospitalist; ATTEND Hospitalist
DX: A41.51 Sepsis due to Escherichia coli [E. coli] (principal); N17.9 Acute kidney failure, unspecified; I47.2 Ventricular tachycardia; E87.2 Acidosis; N39.0 Urinary tract infection, site not specified; I10 Essential (primary) hypertension; K21.9 Gastro-esophageal reflux disease without esophagitis; N40.0 Benign prostatic hyperplasia without lower urinary tract symptoms; F31.9 Bipolar disorder, unspecified; E78.5 Hyperlipidemia, unspecified; M19.90 Unspecified osteoarthritis, unspecified site; I44.7 Left bundle-branch block, unspecified; R73.9 Hyperglycemia, unspecified; R32 Unspecified urinary incontinence; Z16.12 Extended spectrum beta lactamase (ESBL) resistance; B96.20 Unspecified Escherichia coli [E. coli] as the cause of diseases classified elsewhere; F03.90 Unspecified dementia, unspecified severity, without behavioral disturbance, psychotic disturbance, mood disturbance, and anxiety; R10.84 Generalized abdominal pain; R07.89 Other chest pain; Z79.82 Long term (current) use of aspirin; Z86.73 Personal history of transient ischemic attack (TIA), and cerebral infarction without residual deficits; Z23 Encounter for immunization
CPT/HCPCS: 71045; 80048; 80053; 80061; 81001; 82272; 82550; 82552; 82948; 83036; 83605; 83690; 83735; 83880; 84100; 84484; 85025; 85027; 85610; 85730; 86140; 87040; 87077; 87086; 87186; 87205; 87804; 90732; 93005; 93306; J0696; J1335; J1644; J1815; J1940; J7030; J7040

== ENCOUNTER 2018-01-18 12:27 | Emergency (ER) | payer MEDICARE, OTHER ==
[~2018-01-18] VITALS: Ht 172.7 cm; Wt 80.0 kg
[~2018-01-18 12:27] MED LIST changes: -ASPI-183 PO; +ASPI-516 CHEW; +CARV3.125 PO; -DONE5TAB7 PO; +EPIN1INJ21 IV PUSH; +EPIN1INJ21 SQ; +FERR325T18 PO; -GABA300C5 PO; +INVA1INJ IV; +ISOS30TA3 PO; +OMEP20TA93 PO; +PLAV75TA29 PO; +SOLU250I IV PUSH
[2018-01-18 12:38] VITALS: BP 198/88; PULSE 88; RESP 18; TEMP 98.8; O2SAT 95
[2018-01-18] MEDS ORDERED: SODIUM CHLORID 0.9% 500 ML INJ 500 ML IV ONE (12:45)
--- NOTE | 2018-01-18 12:56 | PD ---
HPI Chief Complaint: hip pain Time Seen by Provider: 12:34 Travel History International Travel<30 days: No Contact w/Intl Traveler<30days: No History of Present Illness HPI 87-year-old male presents emergency department from his independent living facility complaining of left hip pain after fall that occurred about 2 AM this morning. Patient states that he was going to get water and got dizzy and fell landing on his left hip. Patient denies head trauma or loss of consciousness. Patient is unable to describe his dizziness but says that it increases with standing or sitting up and decreases with laying down. States this is been present since approximately 2 AM this morning. Patient denies fevers, chills, chest pain, shortness of breath, abdominal pain. Patient is a diabetic and on a blood thinner. History is limited from the patient. PFSH Past Medical History Hx Anticoagulant Therapy: Yes (ASA) Anemia: Yes Arthritis: Yes Asthma: No Blood Disorders: No Bipolar Disorder: Yes Anxiety: No Depression: Yes Heart Rhythm Problems: Yes Cancer: No Cardiovascular Problems: Yes (HTN) High Cholesterol: Yes Chest Pain: No Congestive Heart Failure: No COPD: No Cerebrovascular Accident: Yes Dementia: Yes Diabetes: No Diminished Hearing: No Endocrine: No Gastrointestinal Disorders: Yes Genitourinary: Yes (UTI) Headaches: Yes Hepatitis: No Hiatal Hernia: No Hypertension: Yes Immune Disorder: No Musculoskeletal: Yes (2 BACK SURGERIES IN THE PAST.) Neurologic: No Psychiatric: No Reproductive: No Respiratory: No Immunizations Current: Yes Migraines: No Myocardial Infarction: No Seizures: No Sleep Apnea: No Thyroid Disease: No Ulcer: No Past Surgical History Appendectomy: No Cholecystectomy: Yes Other Surgery: Yes (BACK SURGERY <20 YEARS AGO) Social History Alcohol Use: No Tobacco Use: No Substance Use: No Allergies-Medications (Allergen,Severity, Reaction): Coded Allergies: No Known Allergies (Verified Adverse Reaction, Unknown, 01/18/18) Reported Meds & Prescriptions Reported Meds & Active Scripts Active Bactrim DS (Sulfamethoxazole-Trimethoprim) 800-160 Mg Tab 1 Tab PO BID Invanz Inj (Ertapenem) 1 Gm Addvial 1 Gm IV Q24H 10 Days ADMINISTER IN 100ML NS Epinephrine Inj 1 Mg/Ml (1 Ml) Inj 0.3 Mg SQ ONCE PRN Give with any signs of respiratory distress. Epinephrine Inj 1 Mg/Ml (1 Ml) Inj 0.3 Mg IV PUSH ONCE PRN Solu-Cortef Inj (Hydrocortisone Sodium Succinate) 250 Mg/2 Ml Inj 250 Mg IV PUSH ONCE PRN Give over 30-60 seconds. Isosorbide Mononitrate ER (Isosorbide Mononitrate) 30 Mg Martha 30 Mg PO DAILY@07 Plavix (Clopidogrel Bisulfate) 75 Mg Tab 75 Mg PO DAILY Coreg (Carvedilol) 3.125 Mg Tab 3.125 Mg PO Q12HR Aspirin 81 Mg Chew 162 Mg CHEW ONCE Reported Ferrous Sulfate 325 Mg (65 Mg Iron) Tablet 325 Mg PO BIDPC Omeprazole 20 Mg Tab 20 Mg PO DAILY Timolol Opth Drops 0.5 % Soln 1 Drop LEFT EYE BID Pravachol (Pravastatin) 40 Mg Tab 40 Mg PO DAILY Flomax (Tamsulosin HCl) 0.4 Mg Cap 0.4 Mg PO HS Enalapril (Enalapril Maleate) 5 Mg Tab 5 Mg PO DAILY Review of Systems Except as stated in HPI: all other systems reviewed are Neg Physical Exam Narrative GENERAL: WD, Wn in NAD SKIN: Focused skin assessment warm/dry. HEAD: Atraumatic. Normocephalic. EYES: Pupils equal and round. No scleral icterus. No injection or drainage. ENT: No nasal bleeding or discharge. Mucous membranes pink and moist. NECK: Trachea midline. No JVD. CARDIOVASCULAR: Regular rate and rhythm. No murmur appreciated. RESPIRATORY: No accessory muscle use. Clear to auscultation. Breath sounds equal bilaterally. GASTROINTESTINAL: Abdomen soft, non-tender, nondistended. MUSCULOSKELETAL: No obvious deformities. No clubbing. No cyanosis. No edema. left hip- no deformities, pain with flexion, neurovascularly intact. NEUROLOGICAL: Awake and alert. No obvious cranial nerve deficits. Motor grossly within normal limits. Normal speech. PSYCHIATRIC: Appropriate mood and affect; insight and judgment normal. Data Data Last Documented VS Vital Signs Date Time Temp Pulse Resp B/P (MAP) Pulse Ox O2 Delivery O2 Flow Rate FiO2 01/18/18 18:40 95 01/18/18 16:00 86 15 Room Air 01/18/18 12:38 98.8 Orders Orders Electrocardiogram (01/18/18 12:42) Complete Blood Count With Diff (01/18/18 12:42) Comprehensive Metabolic Panel (01/18/18 12:42) Ckmb (Isoenzyme) Profile (01/18/18 12:42) Troponin I (01/18/18 12:42) Act Partial Throm Time (Ptt) (01/18/18 12:42) Prothrombin Time / Inr (Pt) (01/18/18 12:42) Urinalysis - C+S If Indicated (01/18/18 12:42) Chest, Single Ap (01/18/18 12:42) Ct Brain W/O Iv Contrast(Rout) (01/18/18 12:42) Blood Glucose (01/18/18 12:42) Ecg Monitoring (01/18/18 12:42) Iv Access Insert/Monitor (01/18/18 12:42) Oximetry (01/18/18 12:42) Sodium Chlorid 0.9% 500 Ml Inj (Ns 500 M (01/18/18 12:45) Lactic Acid Sepsis Protocol (01/18/18 12:42) Blood Culture (01/18/18 12:42) Hip, Uni(Ap&Lat) W Ap Pelvis (01/18/18 ) Femur (Ap & Lat/2vws) (01/18/18 ) Cath For Specimen (01/18/18 15:59) Orthostatic Vital Signs (01/18/18 15:59) Urine Culture (01/18/18 16:10) Ed Discharge Order (01/18/18 16:26) Labs Laboratory Tests Test 01/18/18 12:45 01/18/18 13:15 01/18/18 16:10 White Blood Count 13.1 TH/MM3 Red Blood Count 3.97 MIL/MM3 Hemoglobin 12.0 GM/DL Hematocrit 35.5 % Mean Corpuscular Volume 89.5 FL Mean Corpuscular Hemoglobin 30.2 PG Mean Corpuscular Hemoglobin Concent 33.7 % Red Cell Distribution Width 14.7 % Platelet Count 427 TH/MM3 Mean Platelet Volume 7.4 FL Neutrophils (%) (Auto) 80.8 % Lymphocytes (%) (Auto) 10.7 % Monocytes (%) (Auto) 7.3 % Eosinophils (%) (Auto) 0.9 % Basophils (%) (Auto) 0.3 % Neutrophils # (Auto) 10.6 TH/MM3 Lymphocytes # (Auto) 1.4 TH/MM3 Monocytes # (Auto) 1.0 TH/MM3 Eosinophils # (Auto) 0.1 TH/MM3 Basophils # (Auto) 0.0 TH/MM3 CBC Comment DIFF FINAL Differential Comment Prothrombin Time 11.9 SEC Prothromb Time International Ratio 1.2 RATIO Activated Partial Thromboplast Time 29.6 SEC Blood Urea Nitrogen 17 MG/DL Creatinine 1.23 MG/DL Random Glucose 103 MG/DL Total Protein 6.9 GM/DL Albumin 2.7 GM/DL Calcium Level 8.7 MG/DL Alkaline Phosphatase 96 U/L Aspartate Amino Transf (AST/SGOT) 13 U/L Alanine Aminotransferase (ALT/SGPT) 12 U/L Total Bilirubin 0.8 MG/DL Sodium Level 139 MEQ/L Potassium Level 4.0 MEQ/L Chloride Level 106 MEQ/L Carbon Dioxide Level 23.9 MEQ/L Anion Gap 9 MEQ/L Estimat Glomerular Filtration Rate 55 ML/MIN Total Creatine Kinase 40 U/L Troponin I 0.02 NG/ML Lactic Acid Level 1.0 mmol/L Urine Color YELLOW Urine Turbidity HAZY Urine pH 5.5 Urine Specific [place] 1.013 Urine Protein 30 mg/dL Urine Glucose (UA) NEG mg/dL Urine Ketones NEG mg/dL Urine Occult Blood MOD Urine Nitrite NEG Urine Bilirubin NEG Urine Urobilinogen LESS THAN 2.0 MG/DL Urine Leukocyte Esterase LARGE Urine RBC 11 /hpf Urine WBC 123 /hpf Urine Squamous Epithelial Cells 1 /hpf Urine Bacteria MANY /hpf Urine Mucus FEW /lpf Microscopic Urinalysis Comment CULTURE INDICATED MDM Medical Decision Making Medical Screen Exam Complete: Yes Emergency Medical Condition: Yes Differential Diagnosis left hip fracture, contusion, UTI Narrative Course 87-year-old male presents emergency department after a fall after patient became dizzy around 2 AM this morning. Patient's only complaint today is left hip pain. EKG demonstrates sinus rhythm at 89 with left bundle branch block. EKG similar to December 15, 2017 EKG. After review of the EMR, it appears that patient had an echocardiogram December 2017 which demonstrated EF of 65-70% with moderate LVH. Laboratory Tests Test 01/18/18 12:45 01/18/18 13:15 01/18/18 16:10 White Blood Count 13.1 TH/MM3 Red Blood Count 3.97 MIL/MM3 Hemoglobin 12.0 GM/DL Hematocrit 35.5 % Mean Corpuscular Volume 89.5 FL Mean Corpuscular Hemoglobin 30.2 PG Mean Corpuscular Hemoglobin Concent 33.7 % Red Cell Distribution Width 14.7 % Platelet Count 427 TH/MM3 Mean Platelet Volume 7.4 FL Neutrophils (%) (Auto) 80.8 % Lymphocytes (%) (Auto) 10.7 % Monocytes (%) (Auto) 7.3 % Eosinophils (%) (Auto) 0.9 % Basophils (%) (Auto) 0.3 % Neutrophils # (Auto) 10.6 TH/MM3 Lymphocytes # (Auto) 1.4 TH/MM3 Monocytes # (Auto) 1.0 TH/MM3 Eosinophils # (Auto) 0.1 TH/MM3 Basophils # (Auto) 0.0 TH/MM3 CBC Comment DIFF FINAL Differential Comment Prothrombin Time 11.9 SEC Prothromb Time International Ratio 1.2 RATIO Activated Partial Thromboplast Time 29.6 SEC Blood Urea Nitrogen 17 MG/DL Creatinine 1.23 MG/DL Random Glucose 103 MG/DL Total Protein 6.9 GM/DL Albumin 2.7 GM/DL Calcium Level 8.7 MG/DL Alkaline Phosphatase 96 U/L Aspartate Amino Transf (AST/SGOT) 13 U/L Alanine Aminotransferase (ALT/SGPT) 12 U/L Total Bilirubin 0.8 MG/DL Sodium Level 139 MEQ/L Potassium Level 4.0 MEQ/L Chloride Level 106 MEQ/L Carbon Dioxide Level 23.9 MEQ/L Anion Gap 9 MEQ/L Estimat Glomerular Filtration Rate 55 ML/MIN Total Creatine Kinase 40 U/L Troponin I 0.02 NG/ML Lactic Acid Level 1.0 mmol/L Urine Color YELLOW Urine Turbidity HAZY Urine pH 5.5 Urine Specific [place] 1.013 Urine Protein 30 mg/dL Urine Glucose (UA) NEG mg/dL Urine Ketones NEG mg/dL Urine Occult Blood MOD Urine Nitrite NEG Urine Bilirubin NEG Urine Urobilinogen LESS THAN 2.0 MG/DL Urine Leukocyte Esterase LARGE Urine RBC 11 /hpf Urine WBC 123 /hpf Urine Squamous Epithelial Cells 1 /hpf Urine Bacteria MANY /hpf Urine Mucus FEW /lpf Microscopic Urinalysis Comment CULTURE INDICATED Last Impressions Head CT 01/18/181241 Signed Impressions: Service Date/Time: Thursday, January 18, 2018 14:00 - CONCLUSION: Normal examination. Rocky Barker MD Chest X-Ray 01/18/182 Signed Impressions: Service Date/Time: Thursday, January 18, 2018 13:36 - CONCLUSION: Normal examination. Rocky Barker MD Hip and Pelvis X-Ray 01/18/18 0000 Signed Impressions: Service Date/Time: Thursday, January 18, 2018 13:38 - CONCLUSION: Unremarkable examination of the left hip. Rocky Barker MD Femur X-Ray 01/18/18 0000 Signed Impressions: Service Date/Time: Thursday, January 18, 2018 13:40 - CONCLUSION: Unremarkable examination of the left femur. Rocky Barker MD Xrays demonstrate no evidence of fractures today. Leukocytosis at 13.1, UA suggestive of UTI. Bactrim DS for outpatient follow up. Pt ambulated out of the ED without issue. 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 Pt will be discharged home for follow up as an outpatient. Diagnosis Primary Impression: UTI (urinary tract infection) Qualified Codes: N30.00 - Acute cystitis without hematuria Additional Impression: Contusion, hip Qualified Codes: S70.02XA - Contusion of left hip, initial encounter Referrals: Primary Care Physician Additional Instructions: Follow up with your Primary care physician within 2-3 days. Take all medications as prescribed. Ensure adequate fluid intake and proper nutrition. Scripts Sulfamethoxazole-Trimethoprim (Bactrim DS) 800-160 Mg Tab 1 TAB PO BID for Infection, #14 TAB 0 Refills Prov: Yolanda Alanis 01/18/18 Disposition: 01 DISCHARGE HOME Condition: Stable Yolanda Alanis Jan 18, 2018 12:56
[2018-01-18 13:34] LABS: AUTOMATED NEUTROPHIL # 10.6 TH/MM3 (1.8-7.7); BASOPHIL % 0.3 % (0.0-2.0); EOSINOPHIL # 0.1 TH/MM3 (0-0.4); EOSINOPHIL % 0.9 % (0.0-4.0); HEMATOCRIT 35.5 % (39.0-51.0); LYMPH % 10.7 % (9.0-44.0); LYMPHOCYTE # 1.4 TH/MM3 (1.0-4.8); MEAN CELL VOLUME 89.5 FL (80.0-100.0); MEAN CORPUSCULAR HEMOGLOBIN 30.2 PG (27.0-34.0); MEAN CORPUSCULAR HGB CONC 33.7 % (32.0-36.0); MEAN PLATELET VOLUME 7.4 FL (7.0-11.0); MONO % 7.3 % (0.0-8.0); NEUT % 80.8 % (16.0-70.0); PLATELET COUNT 427 TH/MM3 (150-450); RED BLOOD COUNT 3.97 MIL/MM3 (4.50-5.90); RED CELL DISTRIBUTION WIDTH 14.7 % (11.6-17.2); WHITE BLOOD COUNT 13.1 TH/MM3 (4.0-11.0)
[2018-01-18 13:40] LABS: INTERNATIONAL NORMALIZED RATIO 1.2 RATIO; PROTHROMBIN TIME - PATIENT 11.9 SEC (9.8-11.6)
[2018-01-18 13:46] LABS: ALBUMIN 2.7 GM/DL (3.4-5.0); AST (GOT) 13 U/L (15-37); BICARBONATE 23.9 MEQ/L (21.0-32.0); BLOOD UREA NITROGEN 17 MG/DL (7-18); CALCIUM 8.7 MG/DL (8.5-10.1); CHLORIDE 106 MEQ/L (98-107); CREATININE 1.23 MG/DL (0.60-1.30); GLOMERULAR FILTRATION RATE 55 ML/MIN (>89); GLUCOSE,RANDOM 103 MG/DL (74-106); SODIUM (NA) 139 MEQ/L (136-145)
[2018-01-18 13:51] LABS: ALKALINE PHOSPHATASE 96 U/L (45-117); ALT (GPT) 12 U/L (12-78); TOTAL BILIRUBIN ADULT 0.8 MG/DL (0.2-1.0); TOTAL PROTEIN 6.9 GM/DL (6.4-8.2); TROPONIN I 0.02 NG/ML (0.02-0.05)
[2018-01-18 14:00] VITALS: BP 176/78; PULSE 86; RESP 15; O2SAT 95
--- NOTE | 2018-01-18 14:07 | RADRPT ---
EXAM DATE/TIME: 01/18/2018 13:36 [facility] COMPARISON: CHEST SINGLE AP, December 14, 2017, 20:54. INDICATIONS : Evaluate chest for trauma, fell MEDICAL HISTORY : Hypertension. Asthma SURGICAL HISTORY : None. ENCOUNTER: Initial ACUITY: 1 day PAIN SCORE: 0/10 LOCATION: chest FINDINGS: A single view of the chest demonstrates the lungs to be symmetrically aerated without evidence of mas s, infiltrate or effusion. The cardiomediastinal contours are unremarkable. Osseous structures are intact. CONCLUSION: Normal examination. Rocky Barker MD on January 18, 2018 at 14:05 Board Certified Radiologist. This report was verified electronically.
--- NOTE | 2018-01-18 14:09 | RADRPT ---
EXAM DATE/TIME: 01/18/2018 13:38 [facility] COMPARISON: No previous studies available for comparison. INDICATIONS : Evaluate left hip for trauma, fell MEDICAL HISTORY : Hypertension. Asthma. SURGICAL HISTORY : None. ENCOUNTER: Initial ACUITY: 1 day PAIN SCORE: 0/10 LOCATION: Left Hip FINDINGS: Examination of the left hip was performed with AP Pelvis. The primary and secondary trabecular patte rn of the femoral neck is intact. The hip joint is of normal width without significant sclerosis or bony hypertrophy. The acetabulum is grossly intact. CONCLUSION: Unremarkable examination of the left hip. Rocky Barker MD on January 18, 2018 at 14:06 Board Certified Radiologist. This report was verified electronically.
--- NOTE | 2018-01-18 14:09 | RADRPT ---
EXAM DATE/TIME: 01/18/2018 13:40 [facility] COMPARISON: No previous studies available for comparison. INDICATIONS : Evaluate for trauma, fell MEDICAL HISTORY : Hypertension. Asthma. SURGICAL HISTORY : None. ENCOUNTER: Initial ACUITY: 1 day PAIN SCORE: 0/10 LOCATION: Left Femur FINDINGS: Two view examination of the left femur demonstrates no evidence of fracture or dislocation. Bony min eralization is normal. The soft tissue structures are intact. CONCLUSION: Unremarkable examination of the left femur. Rocky Barker MD on January 18, 2018 at 14:07 Board Certified Radiologist. This report was verified electronically.
--- NOTE | 2018-01-18 14:13 | RADRPT ---
EXAM DATE/TIME: 01/18/2018 14:00 [facility] COMPARISON: CT BRAIN W/O CONTRAST, October 07, 2011, 12:29. INDICATIONS : Dizziness. RADIATION DOSE: 37.77 CTDIvol (mGy) MEDICAL HISTORY : Stroke. Dementia. Hypertension. SURGICAL HISTORY : None. ENCOUNTER: Initial ACUITY: 1 day PAIN SCALE: 0/10 LOCATION: cranial TECHNIQUE: Multiple contiguous axial images were obtained of the head. Using automated exposure control and adj ustment of the mA and/or kV according to patient size, radiation dose was kept as low as reasonably a chievable to obtain optimal diagnostic quality images. DICOM format image data is available electro nically for review and comparison. FINDINGS: CEREBRUM: The ventricles are normal for age. No evidence of midline shift, mass lesion, hemorrhage or acute in farction. No extra-axial fluid collections are seen. POSTERIOR FOSSA: The cerebellum and brainstem are intact. The 4th ventricle is midline. The cerebellopontine angle i s unremarkable. EXTRACRANIAL: The visualized portion of the orbits is intact. SKULL: The calvaria is intact. No evidence of skull fracture. CONCLUSION: Normal examination. Rocky Barker MD on January 18, 2018 at 14:11 Board Certified Radiologist. This report was verified electronically.
[2018-01-18 16:00] VITALS: BP 174/92; PULSE 86; RESP 15; O2SAT 98
[2018-01-18 16:24] LABS: BACTERIA, URINE MANY /hpf; BILIRUBIN, URINE NEG (NEG); BLOOD, URINE MOD (NEG); GLUCOSE,URINE NEG (NEG); KETONE, URINE NEG (NEG); MUCUS URINE FEW /lpf (OCC); NITRITE,URINE NEG (NEG); PH, URINE 5.5 (5.0-8.5); SQUAMOUS EPITHELIAL CELL URINE 1 /hpf (0-5); URINE COLOR YELLOW (YELLW/STRAW); URINE LEUKOCYTE ESTERASE LARGE (NEG)
[2018-01-18] MEDS ORDERED: BACT800T5 PO (16:28)
--- NOTE | 2018-01-19 23:10 | EKG ---
Date Performed: 01/18/2018 Time Performed: 12:45:12 PTAGE: 87 years EKG: Sinus rhythm WITH SINUS ARRHYTHMIA LEFT BUNDLE BRANCH BLOCK ABNORMAL ECG PREVIOUS TRACING : 12/15/2017 00.12 DOCTOR: Velvet Richardson Interpretating Date/Time 01/19/2018 23:00:28
== END 2018-01-18 18:44 | disposition home or self-care (01) ==
LOC: NEPC 12:27
DX: N30.00 Acute cystitis without hematuria (principal); S70.02XA Contusion of left hip, initial encounter; E78.00 Pure hypercholesterolemia, unspecified; I10 Essential (primary) hypertension; R94.31 Abnormal electrocardiogram [ECG] [EKG]; W19.XXXA Unspecified fall, initial encounter
CPT/HCPCS: 70450; 71045; 73502; 73552; 80053; 81001; 82550; 83605; 84484; 85025; 85610; 85730; 87040; 87077; 87086; 87186; 87205; 93005; 96360; 99285; J7040

== ENCOUNTER 2018-02-01 09:27 | Observation (INO) | payer OTHER ==
[~2018-02-01] VITALS: Ht 175.3 cm; Wt 74.0 kg
[~2018-02-01 09:27] MED LIST changes: +BACT800T5 PO
[2018-02-01 09:43] VITALS: BP 174/70; PULSE 80; RESP 17; TEMP 98; O2SAT 97
[2018-02-01] MEDS ORDERED: AMOX875T2 PO (09:48)
[2018-02-01] MEDS ORDERED: [UNRECOGNIZED DRUG - CODE] (09:48)
[2018-02-01] MEDS ORDERED: GABA300C5 PO (09:48)
--- NOTE | 2018-02-01 10:03 | PD ---
HPI Chief Complaint: Pain: Acute or Chronic Time Seen by Provider: 09:58 Travel History International Travel<30 days: No Contact w/Intl Traveler<30days: No Traveled to known affect area: No History of Present Illness HPI 87-year-old male presents to the emergency department via EMS with complaint of continued left hip pain that radiates to his left groin area 2 weeks after a fall. He was evaluated here at [facility] on January 18 after the fall. Left hip x-ray and left femur x-ray were unremarkable. He did have a urinary tract infection that grew out E. coli and was treated with Bactrim. His antibiotic was switched to Augmentin, which he is currently taking. The patient says he is able to ambulate with his walker, but has not been ambulating as much as he normally does. Denies paresthesias, loss of sensation, decreased range of motion, decreased strength to bilateral lower extremities. Denies fever, vomiting, abdominal pain. Denies dysuria. Rates pain 8/10. Pain is worse with movement and ambulation. Better when he lays down. No known allergies. Primary care provider is [facility]. When I asked him his medical history he says "I am okay." He does not know if he takes a blood thinner. Has no other medical complaints. No other modifying factors or associated signs and symptoms. PFSH Past Medical History Hx Anticoagulant Therapy: Yes (PLAVIX ) Anemia: Yes Arthritis: Yes Asthma: No Blood Disorders: No Bipolar Disorder: Yes Anxiety: No Depression: Yes Heart Rhythm Problems: Yes Cancer: No Cardiovascular Problems: Yes High Cholesterol: Yes Chest Pain: No Congestive Heart Failure: No COPD: No Cerebrovascular Accident: Yes Dementia: Yes Diabetes: Yes Patient Takes Glucophage: No Diminished Hearing: No Endocrine: No Gastrointestinal Disorders: Yes Genitourinary: Yes (UTI) Headaches: Yes Hepatitis: No Hiatal Hernia: No Hypertension: Yes Immune Disorder: No Musculoskeletal: Yes (2 BACK SURGERIES IN THE PAST.) Neurologic: No Psychiatric: No Reproductive: No Respiratory: No Immunizations Current: Yes Migraines: No Myocardial Infarction: No Seizures: No Sleep Apnea: No Thyroid Disease: No Ulcer: No Tetanus Vaccination: < 5 Years Influenza Vaccination: Yes Past Surgical History Appendectomy: No Cholecystectomy: Yes Other Surgery: Yes (BACK SURGERY <20 YEARS AGO) Social History Alcohol Use: No Tobacco Use: No Substance Use: No Allergies-Medications (Allergen,Severity, Reaction): Coded Allergies: No Known Allergies (Verified Adverse Reaction, Unknown, 02/01/18) Reported Meds & Prescriptions Reported Meds & Active Scripts Active Invanz Inj (Ertapenem) 1 Gm Addvial 1 Gm IV Q24H 10 Days ADMINISTER IN 100ML NS Epinephrine Inj 1 Mg/Ml (1 Ml) Inj 0.3 Mg SQ ONCE PRN Give with any signs of respiratory distress. Solu-Cortef Inj (Hydrocortisone Sodium Succinate) 250 Mg/2 Ml Inj 250 Mg IV PUSH ONCE PRN Give over 30-60 seconds. Isosorbide Mononitrate ER (Isosorbide Mononitrate) 30 Mg Martha 30 Mg PO DAILY@07 Plavix (Clopidogrel Bisulfate) 75 Mg Tab 75 Mg PO DAILY Coreg (Carvedilol) 3.125 Mg Tab 3.125 Mg PO Q12HR Aspirin 81 Mg Chew 162 Mg CHEW ONCE Reported Algal-900 Dha (Docosahexaenoic Acid) 300 Mg Cap 300 Mg Gabapentin 300 Mg Cap 300 Mg PO HS Amoxicillin-Clavulanate 875-125 mg Tab 875 Mg PO BID not for use in CrCl <30 mL/minute Ferrous Sulfate 325 Mg (65 Mg Iron) Tablet 325 Mg PO BIDPC Omeprazole 20 Mg Tab 20 Mg PO DAILY Timolol Opth Drops 0.5 % Soln 1 Drop LEFT EYE BID Pravachol (Pravastatin) 40 Mg Tab 40 Mg PO DAILY Flomax (Tamsulosin HCl) 0.4 Mg Cap 0.4 Mg PO HS Enalapril (Enalapril Maleate) 5 Mg Tab 5 Mg PO DAILY Review of Systems Except as stated in HPI: all other systems reviewed are Neg Physical Exam Narrative GENERAL: Thin, elderly, male patient, in no acute distress; afebrile, nontoxic-appearing SKIN: Warm and dry. HEAD: Atraumatic. Normocephalic. EYES: Pupils equal and round. No scleral icterus. No injection or drainage. ENT: Mucosa pink and moist. Airway patent. NECK: Trachea midline. CARDIOVASCULAR: Regular rate. RESPIRATORY: No accessory muscle use. GASTROINTESTINAL: Flat.MUSCULOSKELETAL: Left hip with full range of motion; without erythema, edema, or ecchymosis; with tenderness on abduction; tenderness on palpation to the lateral aspect and down into the groin area; no obvious deformity; no leg length discrepancy. Left lower extremity is supple and non-tense with 2+ pedal pulse and sensory intact and without erythema or edema. NEUROLOGICAL: Awake and alert. No obvious cranial nerve deficits. Motor grossly within normal limits. Normal speech. PSYCHIATRIC: Appropriate mood and affect; insight and judgment normal. Data Data Last Documented VS Vital Signs Date Time Temp Pulse Resp B/P (MAP) Pulse Ox O2 Delivery O2 Flow Rate FiO2 02/01/18 14:07 69 18 204/69 (114) 97 Room Air 02/01/18 09:43 98.0 Orders Orders Urinalysis - C+S If Indicated (02/01/18 10:03) Ct Abd/Pel W/O Iv Contrast (02/01/18 11:07) Acetamin-Hydrocod 325-5 Mg (Cullen 5-325 (02/01/18 11:15) Urine Culture (02/01/18 10:00) Basic Metabolic Panel (Bmp) (02/01/18 13:28) Complete Blood Count With Diff (02/01/18 13:28) Iv Access Insert/Monitor (02/01/18 13:28) Sodium Chloride 0.9% Flush (Ns Flush) (02/01/18 13:30) Blood Culture (02/01/18 13:28) Ceftriaxone Inj (Rocephin Inj) (02/01/18 13:45) (Hub Use Only)Inp Phy Cons/Ref (02/01/18 ) Consult Orthopedic (02/01/18 ) Admit Order (Ed Use Only) (02/01/18 16:18) Place In Observation (02/01/18 ) Vital Signs (Adult) Q4H (02/01/18 16:18) Activity Oob With Assistance (02/01/18 16:18) Intake + Output DONNELL.QSHIFT (02/01/18 16:18) Diet Heart Healthy (02/01/18 Dinner) Sodium Chloride 0.9% Flush (Ns Flush) (02/01/18 16:30) Sodium Chloride 0.9% Flush (Ns Flush) (02/01/18 21:00) Acetaminophen (Tylenol) (02/01/18 16:30) Ondansetron Inj (Zofran Inj) (02/01/18 16:30) Scd Bilateral/Knee High DONNELL.BID (02/01/18 16:18) Naloxone Inj (Narcan Inj) (02/01/18 16:30) Magnesium Hydroxide Liq (Milk Of Magnesi (02/01/18 16:30) Sennosides (Senokot) (02/01/18 16:30) Bisacodyl Supp (Dulcolax Supp) (02/01/18 16:30) Labs Laboratory Tests Test 02/01/18 10:00 02/01/18 13:50 Urine Color YELLOW Urine Turbidity CLEAR Urine pH 5.0 Urine Specific [place] 1.021 Urine Protein NEG mg/dL Urine Glucose (UA) NEG mg/dL Urine Ketones NEG mg/dL Urine Occult Blood NEG Urine Nitrite NEG Urine Bilirubin NEG Urine Urobilinogen LESS THAN 2.0 MG/DL Urine Leukocyte Esterase LARGE Urine RBC 2 /hpf Urine WBC 26 /hpf Urine Squamous Epithelial Cells 3 /hpf Urine Bacteria OCC /hpf Urine Mucus FEW /lpf Microscopic Urinalysis Comment CULTURE INDICATED White Blood Count 6.3 TH/MM3 Red Blood Count 3.70 MIL/MM3 Hemoglobin 11.3 GM/DL Hematocrit 33.3 % Mean Corpuscular Volume 90.0 FL Mean Corpuscular Hemoglobin 30.6 PG Mean Corpuscular Hemoglobin Concent 34.0 % Red Cell Distribution Width 15.2 % Platelet Count 323 TH/MM3 Mean Platelet Volume 7.1 FL Neutrophils (%) (Auto) 56.0 % Lymphocytes (%) (Auto) 32.2 % Monocytes (%) (Auto) 7.8 % Eosinophils (%) (Auto) 3.1 % Basophils (%) (Auto) 0.9 % Neutrophils # (Auto) 3.5 TH/MM3 Lymphocytes # (Auto) 2.0 TH/MM3 Monocytes # (Auto) 0.5 TH/MM3 Eosinophils # (Auto) 0.2 TH/MM3 Basophils # (Auto) 0.1 TH/MM3 CBC Comment DIFF FINAL Differential Comment Blood Urea Nitrogen 31 MG/DL Creatinine 1.19 MG/DL Random Glucose 97 MG/DL Calcium Level 9.0 MG/DL Sodium Level 140 MEQ/L Potassium Level 5.2 MEQ/L Chloride Level 112 MEQ/L Carbon Dioxide Level 23.1 MEQ/L Anion Gap 5 MEQ/L Estimat Glomerular Filtration Rate 58 ML/MIN [facility] Medical Decision Making Medical Screen Exam Complete: Yes Emergency Medical Condition: Yes Medical Record Reviewed: Yes Differential Diagnosis Hip contusion, hip pain, groin strain, sciatica, retroperitoneal bleed, UTI Narrative Course 87-year-old male presents via EMS with continued left hip pain after a fall 2 weeks ago. He was seen here at [facility] and had left hip x-ray and femur x-ray which were unremarkable. He did have a urinary tract infection and was initially treated with Bactrim, but is currently taking Augmentin. He had blood cultures which also grew E. coli and are susceptible to Augmentin. He denies fever, vomiting. His vital signs are stable. I discussed the patient with my attending physician, Dr. Negro, and she recommends CT abdomen/pelvis and to recheck her urine. Urinalysis ordered. Cullen ordered. CT abdomen/ pelvis ordered. 1150: Urinalysis continues to have signs of infection, but with improvement. Urine white blood cells on his last visit were 123, and today's urinalysis shows 26 white urine white blood cells. 1206: CT abdomen/pelvis conclude: Small avulsion type fracture greater trochanter left hip seen best series 601 image 62 and 60; Femoral neck is intact ; No other etiology for the patient's pain; Small renal masses incompletely evaluated on today's exam. 1508: CBC unremarkable. 1548: BMP unremarkable. 1620: I spoke with Dr. Sofia and report was given for patient admission. Consult orthopedics ordered. Physician Communication Physician Communication PRINCE Beatty Diagnosis Primary Impression: Greater trochanter fracture Qualified Codes: S72.115A - Nondisplaced fracture of greater trochanter of left femur, initial encounter for closed fracture Additional Impression: UTI (urinary tract infection) Qualified Codes: N39.0 - Urinary tract infection, site not specified Admitting Information Admitting Physician Requests: Observation Shirlene Gallardo Feb 01, 2018 10:03
[2018-02-01] MEDS ORDERED: ACETAMINOPHEN/HYDROcodone 325 MG/5 MG TAB PO ONE (11:15)
[2018-02-01 11:35] LABS: BACTERIA, URINE OCC /hpf; BILIRUBIN, URINE NEG (NEG); BLOOD, URINE NEG (NEG); GLUCOSE,URINE NEG (NEG); KETONE, URINE NEG (NEG); MUCUS URINE FEW /lpf (OCC); NITRITE,URINE NEG (NEG); SQUAMOUS EPITHELIAL CELL URINE 3 /hpf (0-5); URINE COLOR YELLOW (YELLW/STRAW); URINE LEUKOCYTE ESTERASE LARGE (NEG)
--- NOTE | 2018-02-01 11:57 | RADRPT ---
EXAM DATE/TIME: 02/01/2018 11:33 [place] COMPARISON: HIP LEFT (AP&LAT 2/3VWS) W AP PELVIS, January 18, 2018, 13:38. INDICATIONS : Fall 2 weeks ago, still complains of left hip pain ORAL CONTRAST: No oral contrast ingested. RADIATION DOSE: 7.10 CTDIvol (mGy) MEDICAL HISTORY : Cerebrovascular disease. Dementia. Cardiovascular diseaseHTN, RA, Diabetes SURGICAL HISTORY : Cholecystectomy. ENCOUNTER: Initial ACUITY: 2 weeks PAIN SCALE: 7/10 LOCATION: Left abdominal,pelvis TECHNIQUE: Volumetric scanning of the abdomen and pelvis was performed. Using automated exposure control and ad justment of the mA and/or kV according to patient size, radiation dose was kept as low as reasonably achievable to obtain optimal diagnostic quality images. DICOM format image data is available electro nically for review and comparison. FINDINGS: Lung base is are clear. There is no pericardial effusion The liver is free of focal defects. Gallbladder surgically absent Spleen and pancreas are unremarkable Right and left adrenal glands appear normal Right kidney contains an exophytic 1.2 cm density lower pole Left kidney: Left tibia small and irregular with 2, 1-1.2 cm exophytic mass is present incompletely evaluated on t his exam. There is no stone. There is no retroperitoneal adenopathy Extensive vascular calcifications are evident Mesentery and bowel appears unremarkable with moderate stool throughout the colon. . In the pelvis there are no inflammatory change is evident. Bladder prostate and seminal vesicles ar e unremarkable There is no inguinal adenopathy 2 cm soft tissue nodule right inguinal region. There is the fracture of the greater trochanter without significant displacement not visualized on pr evious plain films. CONCLUSION: Small avulsion type fracture greater trochanter left hip seen best series 601 image 6 2 and 60 Femoral neck is intact. No other etiology for the patient's pain. Small renal masses incompletely evaluated on today's exam. Rashaad Beth MD FACR on February 01, 2018 at 11:50 Board Certified Radiologist. This report was verified electronically.
[2018-02-01] MEDS ORDERED: SODIUM CHLORIDE 0.9% FLUSH 10 ML FLUSH IV FLUSH PRN ×2 (13:30→16:30)
[2018-02-01] MEDS ORDERED: cefTRIAXone INJ 1,000 MG in SODIUM CHLORIDE 0.9% INJ 100 ML IV ONE (13:45)
[2018-02-01 14:07] VITALS: BP 204/69; PULSE 69; RESP 18; O2SAT 97
[2018-02-01 14:13] LABS: AUTOMATED NEUTROPHIL # 3.5 TH/MM3 (1.8-7.7); BASOPHIL # 0.1 TH/MM3 (0-0.2); BASOPHIL % 0.9 % (0.0-2.0); EOSINOPHIL # 0.2 TH/MM3 (0-0.4); EOSINOPHIL % 3.1 % (0.0-4.0); HEMATOCRIT 33.3 % (39.0-51.0); HEMOGLOBIN 11.3 GM/DL (13.0-17.0); LYMPH % 32.2 % (9.0-44.0); MEAN CORPUSCULAR HEMOGLOBIN 30.6 PG (27.0-34.0); MEAN PLATELET VOLUME 7.1 FL (7.0-11.0); MONO % 7.8 % (0.0-8.0); MONOCYTE # 0.5 TH/MM3 (0-0.9); PLATELET COUNT 323 TH/MM3 (150-450); RED CELL DISTRIBUTION WIDTH 15.2 % (11.6-17.2); WHITE BLOOD COUNT 6.3 TH/MM3 (4.0-11.0)
[2018-02-01 15:22] LABS: CREATININE 1.19 MG/DL (0.60-1.30)
[2018-02-01 15:23] LABS: BICARBONATE 23.1 MEQ/L (21.0-32.0)
[2018-02-01] MEDS ORDERED: BISACODYL 10 MG SUPP RECTAL PRN (16:30)
[2018-02-01] MEDS ORDERED: MAGNESIUM HYDROXIDE SUSP 30 ML CUP PO PRN (16:30)
[2018-02-01] MEDS ORDERED: SENNOSIDES 8.6 MG TAB PO PRN (16:30)
[2018-02-01] MEDS ORDERED: NALOXONE HCL 0.4 MG/ML AMP IV PUSH PRN (16:30)
[2018-02-01] MEDS ORDERED: ACETAMINOPHEN 325 MG TAB PO PRN (16:30)
[2018-02-01] MEDS ORDERED: ONDANSETRON HCL 4 MG/2 ML VIAL IVP PRN (16:30)
--- NOTE | 2018-02-01 17:09 | HHI.HP ---
[facility] No Primary Care Physician Admission Diagnosis left hip fracture, UTI Diagnoses: Chief Complaint: Left hip pain Travel History International Travel<30 Days: No Contact w/Intl Traveler <30 Da: No Traveled to Known Affected Are: No History of Present Illness This is an 87-year-old male history of coronary artery disease and recent treatment for bacteremia secondary E Coli ESBL who presented with left hip pain. Patient stated that he fell 2 weeks ago and was seen in the emergency department in which he was told that he did not have any fracture so was sent home. Patient stated that yesterday pain worsen so he went to the emergency department. In the ED he was found to have a small avulsion fracture of the left greater trochanter of the hip. Patient denies any urinary symptoms. He stated that he has been doing well since he was discharged from the hospital. All other review of system reviewed and negative. Past Family Social History Past Medical History Depression, Bipolar Disorder, BPH, HTN and Hyperlipidemia CAD recent NSTEMI Past Surgical History Back Surgery, Cholecystectomy, Cataract Surgery Reported Medications Isosorbide Mononitrate ER (Isosorbide Mononitrate) 30 Mg Martha 30 Mg PO DAILY@07 Plavix (Clopidogrel Bisulfate) 75 Mg Tab 75 Mg PO DAILY Coreg (Carvedilol) 3.125 Mg Tab 3.125 Mg PO Q12HR Aspirin 81 Mg Chew 162 Mg CHEW ONCE Reported Algal-900 Dha (Docosahexaenoic Acid) 300 Mg Cap 300 Mg Gabapentin 300 Mg Cap 300 Mg PO HS Amoxicillin-Clavulanate 875-125 mg Tab 875 Mg PO BID not for use in CrCl <30 mL/minute Ferrous Sulfate 325 Mg (65 Mg Iron) Tablet 325 Mg PO BIDPC Omeprazole 20 Mg Tab 20 Mg PO DAILY Timolol Opth Drops 0.5 % Soln 1 Drop LEFT EYE BID Pravachol (Pravastatin) 40 Mg Tab 40 Mg PO DAILY Flomax (Tamsulosin HCl) 0.4 Mg Cap 0.4 Mg PO HS Enalapril (Enalapril Maleate) 5 Mg Tab 5 Mg PO DAILY Allergies: Coded Allergies: No Known Allergies (Verified Adverse Reaction, Unknown, 02/01/18) Active Ordered Medications Current Medications Acetaminophen/ Hydrocodone Bitart ([place] 5-325 Mg) 1 tab ONCE ONCE PO Last administered on 02/01/18at 11:51; Start 02/01/18 at 11:15; Stop 02/01/18 at 11:16; Status DC Sodium Chloride (NS Flush) 2 ml UNSCH PRN IV FLUSH FLUSH AFTER USING IV ACCESS Last administered on 02/01/18at 14:04; Start 02/01/18 at 13:30 Ceftriaxone Sodium 1000 mg/ Sodium Chloride 100 ml @ 200 mls/hr ONCE ONCE IV Last administered on 02/01/18at 14:05; Start 02/01/18 at 13:45; Stop 02/01/18 at 14: 14; Status DC Sodium Chloride (NS Flush) 2 ml UNSCH PRN IV FLUSH FLUSH AFTER USING IV ACCESS ; Start 02/01/18 at 16:30 Sodium Chloride (NS Flush) 2 ml BID IV FLUSH ; Start 02/01/18 at 21:00 Acetaminophen (Tylenol) 650 mg Q4H PRN PO TEMP > 100.4; Start 02/01/18 at 16:30 Ondansetron HCl (Zofran Inj) 4 mg Q6H PRN IVP NAUSEA OR VOMITING; Start at 16:30 Naloxone HCl (Narcan Inj) 0.4 mg UNSCH PRN IV PUSH SEE LABEL COMMENTS; Start at 16:30 Magnesium Hydroxide (Milk Of Magnesia Liq) 30 ml Q12H PRN PO Mild constipation ; Start 02/01/18 at 16:30 Sennosides (Senokot) 17.2 mg Q12H PRN PO Moderate constipation; Start 02/01/18 at 16:30 Bisacodyl (Dulcolax Supp) 10 mg DAILY PRN RECTAL SEVERE CONSITIPATION; Start at 16:30 Acetaminophen/ Hydrocodone Bitart ([place] 5-325 Mg) 1 tab Q4H PRN PO pain 1-7; Start 02/01/18 at 17:15; Status UNV Acetaminophen/ Hydrocodone Bitart ([place] 5-325 Mg) 2 tab Q4H PRN PO pain 8-10 ; Start 02/01/18 at 17:15; Status UNV Amoxicillin/ Clavulanate Potassium (Augmentin) 875 mg BID PO ; Start 02/01/18 at 21:00; Status UNV Aspirin (Aspirin Chew) 162 mg ONCE CHEW ; Start 02/01/18 at 17:15; Status UNV Carvedilol (Coreg) 3.125 mg Q12HR PO ; Start 02/01/18 at 21:00; Status UNV Clopidogrel Bisulfate (Plavix) 75 mg DAILY PO ; Start 02/02/18 at 09:00; Status UNV Enalapril Maleate (Vasotec) 5 mg DAILY PO ; Start 02/02/18 at 09:00; Status UNV Ertapenem (INVanz INJ) 1,000 mg Q24H IV ; Start 02/01/18 at 17:15; Status UNV Ferrous Sulfate (Ferrous Sulfate) 325 mg BIDPC PO ; Start 02/01/18 at 18:00; Status UNV Gabapentin (Neurontin) 300 mg HS PO ; Start 02/01/18 at 21:00; Status UNV Isosorbide Mononitrate (Imdur) 30 mg DAILY@07 PO ; Start 02/02/18 at 07:00; Status UNV Pravastatin Sodium (Pravachol) 40 mg DAILY PO ; Start 02/02/18 at 09:00; Status UNV Tamsulosin HCl (Flomax) 0.4 mg HS PO ; Start 02/01/18 at 21:00; Status UNV Timolol Maleate (Timoptic 0.5% Opt Soln) 1 drop BID LEFT EYE ; Start 02/01/18 at 21:00; Status UNV Non-Formulary Medication 20 mg DAILY PO ; Start 02/02/18 at 09:00; Status UNV Family History Reviewed past family history. Noncontributory. Social History Negative for alcohol, tobacco or drugs. Physical Exam Vital Signs Vital Signs Date Time Temp Pulse Resp B/P (MAP) Pulse Ox O2 Delivery O2 Flow Rate FiO2 02/01/18 14:07 69 18 204/69 (114) 97 Room Air 02/01/18 09:43 98.0 80 17 174/70 (104) 97 Room Air 02/01/18 09:41 17 Physical Exam GENERAL: This is a well-nourished, well-developed patient, in no apparent distress. SKIN: No rashes, ecchymoses or lesions. Cool and dry. HEAD: Atraumatic. Normocephalic. No temporal or scalp tenderness. EYES: Pupils equal round and reactive. Extraocular motions intact. No scleral icterus. No injection or drainage. ENT: Nose without bleeding, purulent drainage or septal hematoma. Throat without erythema, tonsillar hypertrophy or exudate. Uvula midline. Airway patent. NECK: Trachea midline. No JVD or lymphadenopathy. Supple, nontender, no meningeal signs. CARDIOVASCULAR: Regular rate and rhythm without murmurs, gallops, or rubs. RESPIRATORY: Clear to auscultation. Breath sounds equal bilaterally. No wheezes , rales, or rhonchi. GASTROINTESTINAL: Abdomen soft, non-tender, nondistended. No hepato-splenomegaly , or palpable masses. No guarding. MUSCULOSKELETAL: Extremities without clubbing, cyanosis, or edema. No joint tenderness, effusion, or edema noted. No calf tenderness. Negative Homans sign bilaterally. Left hip full range of motion but painful. NEUROLOGICAL: Awake and alert. Cranial nerves II through XII intact. Motor and sensory grossly within normal limits. Five out of 5 muscle strength in all muscle groups. Normal speech. Laboratory Laboratory Tests Test 02/01/18 10:00 02/01/18 13:50 Urine Color YELLOW Urine Turbidity CLEAR Urine pH 5.0 Urine Specific [place] 1.021 Urine Protein NEG Urine Glucose (UA) NEG Urine Ketones NEG Urine Occult Blood NEG Urine Nitrite NEG Urine Bilirubin NEG Urine Urobilinogen LESS THAN 2.0 Urine Leukocyte Esterase LARGE Urine RBC 2 Urine WBC 26 Urine Squamous Epithelial Cells 3 Urine Bacteria OCC Urine Mucus FEW Microscopic Urinalysis Comment CULTURE INDICATED White Blood Count 6.3 Red Blood Count 3.70 Hemoglobin 11.3 Hematocrit 33.3 Mean Corpuscular Volume 90.0 Mean Corpuscular Hemoglobin 30.6 Mean Corpuscular Hemoglobin Concent 34.0 Red Cell Distribution Width 15.2 Platelet Count 323 Mean Platelet Volume 7.1 Neutrophils (%) (Auto) 56.0 Lymphocytes (%) (Auto) 32.2 Monocytes (%) (Auto) 7.8 Eosinophils (%) (Auto) 3.1 Basophils (%) (Auto) 0.9 Neutrophils # (Auto) 3.5 Lymphocytes # (Auto) 2.0 Monocytes # (Auto) 0.5 Eosinophils # (Auto) 0.2 Basophils # (Auto) 0.1 CBC Comment DIFF FINAL Differential Comment Blood Urea Nitrogen 31 Creatinine 1.19 Random Glucose 97 Calcium Level 9.0 Sodium Level 140 Potassium Level 5.2 Chloride Level 112 Carbon Dioxide Level 23.1 Anion Gap 5 Estimat Glomerular Filtration Rate 58 Date/Time Source Procedure Growth Status 02/01/18 14:00 Blood Peripheral Aerobic Blood Culture Pending Received 02/01/18 14:00 Blood Peripheral Anaerobic Blood Culture Pending Received 02/01/18 10:00 Urine Clean Catch Urine Culture Pending Received Result Diagram: 02/01/18 1350 02/01/18 1350 Imaging Last Impressions Abdomen/Pelvis CT 02/01/18 1107 Signed Impressions: Service Date/Time: Thursday, February 01, 2018 11:33 - CONCLUSION: Small avulsion type fracture greater trochanter left hip seen best series 601 image 62 and 60 Femoral neck is intact. No other etiology for the patient's pain. Small renal masses incompletely evaluated on today's exam. Rashaad Beth MD FACR Caprini VTE Risk Assessment Caprini VTE Risk Assessment: Mod/High Risk (score >= 2) Caprini Risk Assessment Model Point Value = 1 Point Value = 2 Point Value = 3 Point Value = 5 Age 41-60 Minor surgery BMI > 25 kg/m2 Swollen legs Varicose veins or History of unexplained or recurrent spontaneous Oral contraceptives or hormone replacement Sepsis (< 1 month) Serious lung disease, including pneumonia (< 1 month) Abnormal pulmonary function Acute myocardial infarction Congestive heart failure (< 1 month) History of inflammatory bowel disease Medical patient at bed rest Age 61-74 Arthroscopic surgery Major open surgery (> 45 min) Laparoscopic surgery (> 45 min) Malignancy Confined to bed (> 72 hours) Immobilizing plaster cast Central venous access Age >= 75 History of VTE Family history of VTE Factor V Leiden Prothrombin [id number] Lupus anticoagulant Anticardiolipin antibodies Elevated serum homocysteine Heparin-induced thrombocytopenia Other congenital or acquired thrombophilia Stroke (< 1 month) Elective arthroplasty Hip, pelvis, or leg fracture Acute spinal cord injury (< 1 month) Prophylaxis Regimen Total Risk Factor Score Risk Level Prophylaxis Regimen 0-1 Low Early ambulation 2 Moderate Order ONE of the following: *Sequential Compression Device (SCD) *Heparin 5000 units SQ BID 3-4 Higher Order ONE of the following medications: *Heparin 5000 units SQ TID *Enoxaparin/Lovenox 40 mg SQ daily (WT < 150 kg, CrCl > 30 mL/min) *Enoxaparin/Lovenox 30 mg SQ daily (WT < 150 kg, CrCl > 10-29 mL/min) *Enoxaparin/Lovenox 30 mg SQ BID (WT < 150 kg, CrCl > 30 mL/min) AND/OR *Sequential Compression Device (SCD) 5 or more Highest Order ONE of the following medications: *Heparin 5000 units SQ TID (Preferred with Epidurals) *Enoxaparin/Lovenox 40 mg SQ daily (WT < 150 kg, CrCl > 30 mL/min) *Enoxaparin/Lovenox 30 mg SQ daily (WT < 150 kg, CrCl > 10-29 mL/min) *Enoxaparin/Lovenox 30 mg SQ BID (WT < 150 kg, CrCl > 30 mL/min) AND *Sequential Compression Device (SCD) Assessment and Plan Assessment and Plan 87 year-old man who presented with a fall 2 weeks ago then started to have left hip pain yesterday Small avulsion fracture of the left greater trochanter of the hip -Found on x-ray. Most likely patient is not a candidate for any procedure. Orthopedic surgeon consulted. -Consult PT. -Pain management. UTI -Patient has a history of E. coli ESBL and was treated with ertapenem and Rama. He is now on Augmentin for his UTI. -Continue with treatment. Coronary artery disease/Depression/ Bipolar Disorder/ BPH/HTN/Hyperlipidemia/ recent NSTEMI but refused left heart catheterization. -Continue with home medication. DVT prophylaxis -Lovenox Discussed Condition With patient iMchelle Sofia MD Feb 01, 2018 17:09
[2018-02-01] MEDS ORDERED: ERTAPENEM SODIUM 1 GM ADDVANTAGE VIAL IV SCH (17:15)
[2018-02-01] MEDS ORDERED: ACETAMINOPHEN/HYDROcodone 325 MG/5 MG TAB PO PRN (17:15)
[2018-02-01] MEDS ORDERED: ASPIRIN 81 MG CHEW TAB CHEW SCH (17:15)
[2018-02-01] MEDS ORDERED: ENALAPRILAT 2.5 MG/2 ML VIAL IV PUSH PRN (17:30)
[2018-02-01 18:19] VITALS: BP 203/92; PULSE 83; RESP 18; O2SAT 98
[2018-02-01] MEDS: FERROUS SULFATE 325 MG (65 MG ELEMENTAL IRON) TAB PO SCH (18:24)
[2018-02-01] MEDS: ENOXAPARIN SODIUM 40 MG/0.4 ML SYRINGE SQ SCH (18:25)
[2018-02-01 18:30] VITALS: BP 172/70; PULSE 84; RESP 16; O2SAT 98
[2018-02-01 18:45] VITALS: BP 167/72; PULSE 88; RESP 18; O2SAT 98
[2018-02-01 19:41] VITALS: BP 146/74; PULSE 83; RESP 18; TEMP 98.1; O2SAT 93
[2018-02-01] MEDS: TIMOLOL MALEATE 0.5% OPHT SOLN 5 ML BTL LEFT EYE SCH (21:00)
[2018-02-01] MEDS: CARVEDILOL 3.125 MG TAB PO SCH (21:12)
[2018-02-01] MEDS: TAMSULOSIN HCL 0.4 MG CAP PO SCH (21:12)
[2018-02-01] MEDS: ACETAMINOPHEN/HYDROcodone 325 MG/5 MG TAB PO PRN (21:12)
[2018-02-01] MEDS: SODIUM CHLORIDE 0.9% FLUSH 10 ML FLUSH IV FLUSH SCH (21:12)
[2018-02-01] MEDS: GABAPENTIN 300 MG CAP PO SCH (21:12)
--- NOTE | 2018-02-01 21:40 | HHI.PR ---
Subjective Remarks NOT SEEN Objective Vitals Vital Signs Date Time Temp Pulse Resp B/P (MAP) Pulse Ox O2 Delivery O2 Flow Rate FiO2 02/01/18 19:43 02/01/18 19:41 98.1 83 18 146/74 (98) 93 02/01/18 18:45 88 18 167/72 (103) 98 Room Air 02/01/18 18:30 84 16 172/70 (104) 98 Room Air 02/01/18 18:19 83 18 203/92 (129) 98 Room Air 02/01/18 14:07 69 18 204/69 (114) 97 Room Air 02/01/18 09:43 98.0 80 17 174/70 (104) 97 Room Air 02/01/18 09:41 17 I/O 01/31/18 01/31/18 01/31/18 02/01/18 02/01/18 02/01/18 07:00 15:00 23:00 07:00 15:00 23:00 Intake Total 100 ml Balance 100 ml Intake IV Total 100 ml # Voids 1 Result Diagram: 02/01/18 1350 02/01/18 1350 Imaging Last Impressions Abdomen/Pelvis CT 02/01/18 1107 Signed Impressions: Service Date/Time: Thursday, February 01, 2018 11:33 - CONCLUSION: Small avulsion type fracture greater trochanter left hip seen best series 601 image 62 and 60 Femoral neck is intact. No other etiology for the patient's pain. Small renal masses incompletely evaluated on today's exam. Rashaad Beth MD FACR Objective Remarks GENERAL: This is a well-nourished, well-developed patient, in no apparent distress. SKIN: No rashes, ecchymoses or lesions. Cool and dry. HEAD: Atraumatic. Normocephalic. No temporal or scalp tenderness. EYES: Pupils equal round and reactive. Extraocular motions intact. No scleral icterus. No injection or drainage. ENT: Nose without bleeding, purulent drainage or septal hematoma. Throat without erythema, tonsillar hypertrophy or exudate. Uvula midline. Airway patent. NECK: Trachea midline. No JVD or lymphadenopathy. Supple, nontender, no meningeal signs. CARDIOVASCULAR: Regular rate and rhythm without murmurs, gallops, or rubs. RESPIRATORY: Clear to auscultation. Breath sounds equal bilaterally. No wheezes , rales, or rhonchi. GASTROINTESTINAL: Abdomen soft, non-tender, nondistended. No guarding. MUSCULOSKELETAL: Extremities without clubbing, cyanosis, or edema. No joint tenderness, effusion, or edema noted. No calf tenderness. Negative Homans sign bilaterally. Left hip full range of motion but painful. NEUROLOGICAL: Awake and alert. Cranial nerves II through XII intact. Motor and sensory grossly within normal limits. Five out of 5 muscle strength in all muscle groups. Normal speech. A/P Problem List: (1) Greater trochanter fracture ICD Code: S72.113A - Displaced fracture of greater trochanter of unspecified femur, initial encounter for closed fracture Status: Acute Assessment and Plan 87 year-old man who presented with a fall 2 weeks ago then started to have left hip pain day [employer] Small avulsion fracture of the left greater trochanter of the hip -Found on x-ray. Most likely patient is not a candidate for any procedure. Orthopedic surgeon consulted. -Consult PT. -Pain management. UTI -Patient has a history of E. coli ESBL and was treated with ertapenem and Rama. He is now on Augmentin for his UTI. -Continue with treatment. Coronary artery disease/Depression/ Bipolar Disorder/ BPH/HTN/Hyperlipidemia/ recent NSTEMI but refused left heart catheterization. -Continue with home medication. DVT prophylaxis -Lovenox Problem Qualifiers (1) Greater trochanter fracture: Qualified Codes: S72.115A - Nondisplaced fracture of greater trochanter of left femur, initial encounter for closed fracture Yossi Betts MD Feb 01, 2018 21:40
[2018-02-01] MEDS: AMOXICILLIN/CLAVULANATE K 875 MG TAB PO SCH (23:14)
[2018-02-02] VITALS (7 sets, daily range): BP systolic 103–120; BP diastolic 52–60; PULSE 75–88; RESP 16–19; TEMP 96.5–98.2; O2SAT 93–97
[2018-02-02] MEDS: ACETAMINOPHEN/HYDROcodone 325 MG/5 MG TAB PO PRN ×3 (04:18→21:21)
[2018-02-02 05:05] LABS: HEMATOCRIT 32.7 % (39.0-51.0); HEMOGLOBIN 11.2 GM/DL (13.0-17.0); MEAN CELL VOLUME 89.2 FL (80.0-100.0); MEAN CORPUSCULAR HEMOGLOBIN 30.5 PG (27.0-34.0); MEAN CORPUSCULAR HGB CONC 34.2 % (32.0-36.0); MEAN PLATELET VOLUME 7.1 FL (7.0-11.0); PLATELET COUNT 294 TH/MM3 (150-450); RED BLOOD COUNT 3.66 MIL/MM3 (4.50-5.90); WHITE BLOOD COUNT 5.3 TH/MM3 (4.0-11.0)
[2018-02-02 05:36] LABS: BICARBONATE 21.9 MEQ/L (21.0-32.0); CALCIUM 8.8 MG/DL (8.5-10.1); CREATININE 1.12 MG/DL (0.60-1.30)
[2018-02-02] MEDS: ISOSORBIDE MONONITRATE 30 MG CR TAB (IMDUR) PO SCH (06:21)
[2018-02-02] MEDS: AMOXICILLIN/CLAVULANATE K 875 MG TAB PO SCH ×2 (09:21→21:20)
[2018-02-02] MEDS: FERROUS SULFATE 325 MG (65 MG ELEMENTAL IRON) TAB PO SCH ×2 (09:21→18:13)
[2018-02-02] MEDS: TIMOLOL MALEATE 0.5% OPHT SOLN 5 ML BTL LEFT EYE SCH ×2 (09:21→21:20)
[2018-02-02] MEDS: SODIUM CHLORIDE 0.9% FLUSH 10 ML FLUSH IV FLUSH SCH ×2 (09:21→21:21)
[2018-02-02] MEDS: PRAVASTATIN SOD 40 MG TAB PO SCH (09:22)
[2018-02-02] MEDS: PANTOPRAZOLE SOD 20 MG DELAYED RELEASE TAB PO SCH (09:22)
[2018-02-02] MEDS: CLOPIDOGREL 75 MG TAB PO SCH (09:22)
[2018-02-02] MEDS: CARVEDILOL 3.125 MG TAB PO SCH ×2 (09:23→21:20)
[2018-02-02] MEDS: ENALAPRIL MALEATE 5 MG TAB PO SCH (09:23)
[2018-02-02] MEDS ORDERED: PNEUMOCOCCAL POLYVALENT INJ 25 MCG/0.5 ML SYR IM ONE (10:00)
--- NOTE | 2018-02-02 12:00 | PD.CONS ---
cc: Evangelista Romano Jr., MD HPI Service Orthopedic Surgeons Consult Requested By Primary Care Physician No Primary Care Physician Admission Diagnosis left hip fracture, UTI Diagnoses: (1) Greater trochanter fracture Chief Complaint: Left greater trochanter fracture History of Present Illness 87-year-old male history of coronary artery disease and recent treatment for bacteremia secondary E Coli ESBL who presented with left hip pain. Patient stated that he fell 3 weeks ago and was seen in the emergency department in which he was told that he did not have any fracture so was sent home. Patient stated that yesterday pain worsen he therefore returned to the emergency department. -CT reveal avulsion fracture off the left greater trochanter right. -Denies any head injuries. Denies loss of consciousness. -Currently is alert, pain localized at left hip, patient's is 3 out of 10, exacerbated by any range of motion, WB, relieved at rest and with IV pain medicine, pain is sharp nonradiating, not associated with any paresthesia and numbness to the extremity. Patient denies any urinary symptoms. He stated that he has been doing well since he was discharged from the hospital. PFSH Past Family Social History Past Medical History Depression, Bipolar Disorder, BPH, HTN and Hyperlipidemia CAD recent NSTEMI Past Surgical History Back Surgery, Cholecystectomy, Cataract Surgery Review of Systems Constitutional: DENIES: Diaphoretic episodes, Fatigue, Fever, Weight gain, Weight loss, Chills, Dizziness, Change in appetite, Night Sweats Endocrine: DENIES: Heat/cold intolerance, Polydipsia, Polyuria, Polyphagia Eyes: DENIES: Blurred vision, Diplopia, Eye inflammation, Eye pain, Vision loss , Photosensitivity, Double Vision Ears, nose, mouth, throat: DENIES: Tinnitus, Hearing loss, Vertigo, Nasal discharge, Oral lesions, Throat pain, Hoarseness, Ear Pain, Running Nose, Epistaxis, Sinus Pain, Toothache, Odynophagia Respiratory: DENIES: Apneas, Cough, Snoring, Wheezing, Hemoptysis, Sputum production, Shortness of breath Past Family Social History Past Medical History Depression, Bipolar Disorder, BPH, HTN and Hyperlipidemia CAD recent NSTEMI Past Surgical History Back Surgery, Cholecystectomy, Cataract Surgery Allergies: Coded Allergies: No Known Allergies (Verified Adverse Reaction, Unknown, 02/01/18) Active Ordered Medications Current Medications Medications (Trade) Dose Ordered Sig/Elizabeth Route Start Time Stop Time Status Last Admin (NS Flush) 2 ml UNSCH PRN IV FLUSH 02/01/18 16:30 (NS Flush) 2 ml BID IV FLUSH 02/01/18 21:00 02/02/18 09:21 (Tylenol) 650 mg Q4H PRN PO 02/01/18 16:30 (Zofran Inj) 4 mg Q6H PRN IVP 02/01/18 16:30 (Narcan Inj) 0.4 mg UNSCH PRN IV PUSH 02/01/18 16:30 (Milk Of Magnesia Liq) 30 ml Q12H PRN PO 02/01/18 16:30 (Senokot) 17.2 mg Q12H PRN PO 02/01/18 16:30 (Dulcolax Supp) 10 mg DAILY PRN RECTAL 02/01/18 16:30 (Cameron 5-325 Mg) 1 tab Q4H PRN PO 02/01/18 17:15 (Cameron 5-325 Mg) 2 tab Q4H PRN PO 02/01/18 17:15 02/02/18 04:18 (Augmentin) 875 mg BID PO 02/01/18 21:00 02/02/18 09:21 (Coreg) 3.125 mg Q12HR PO 02/01/18 21:00 02/01/18 21:12 (Plavix) 75 mg DAILY PO 02/02/18 09:00 02/02/18 09:22 (Vasotec) 5 mg DAILY PO 02/02/18 09:00 (Ferrous Sulfate) 325 mg BIDPC PO 02/01/18 18:00 02/02/18 09:21 (Neurontin) 300 mg HS PO 02/01/18 21:00 02/01/18 21:12 (Imdur) 30 mg DAILY@07 PO 02/02/18 07:00 02/02/18 06:21 (Pravachol) 40 mg DAILY PO 02/02/18 09:00 02/02/18 09:22 (Flomax) 0.4 mg HS PO 3/4/18 21:00 02/01/18 21:12 (Timoptic 0.5% Opth Soln) 1 drop BID LEFT EYE 02/01/18 21:00 02/02/18 09:21 (Protonix) 20 mg DAILY PO 02/02/18 09:00 02/02/18 09:22 (Vasotec Inj) 2.5 mg Q6H PRN IV PUSH 02/01/18 17:30 02/01/18 18:24 (Lovenox Inj) 40 mg Q24H SQ 02/01/18 18:00 02/01/18 18:25 Reported Meds & Active Scripts Active Invanz Inj (Ertapenem) 1 Gm Addvial 1 Gm IV Q24H 10 Days ADMINISTER IN 100ML NS Epinephrine Inj 1 Mg/Ml (1 Ml) Inj 0.3 Mg SQ ONCE PRN Give with any signs of respiratory distress. Solu-Cortef Inj (Hydrocortisone Sodium Succinate) 250 Mg/2 Ml Inj 250 Mg IV PUSH ONCE PRN Give over 30-60 seconds. Isosorbide Mononitrate ER (Isosorbide Mononitrate) 30 Mg Martha 30 Mg PO DAILY@07 Plavix (Clopidogrel Bisulfate) 75 Mg Tab 75 Mg PO DAILY Coreg (Carvedilol) 3.125 Mg Tab 3.125 Mg PO Q12HR Aspirin 81 Mg Chew 162 Mg CHEW ONCE Reported Algal-900 Dha (Docosahexaenoic Acid) 300 Mg Cap 300 Mg Gabapentin 300 Mg Cap 300 Mg PO HS Amoxicillin-Clavulanate 875-125 mg Tab 875 Mg PO BID not for use in CrCl <30 mL/minute Ferrous Sulfate 325 Mg (65 Mg Iron) Tablet 325 Mg PO BIDPC Omeprazole 20 Mg Tab 20 Mg PO DAILY Timolol Opth Drops 0.5 % Soln 1 Drop LEFT EYE BID Pravachol (Pravastatin) 40 Mg Tab 40 Mg PO DAILY Flomax (Tamsulosin HCl) 0.4 Mg Cap 0.4 Mg PO HS Enalapril (Enalapril Maleate) 5 Mg Tab 5 Mg PO DAILY Family History Reviewed past family history. Noncontributory. Social History Negative for alcohol, tobacco or drugs. Physical Exam Vital Signs Vital Signs Date Time Temp Pulse Resp B/P (MAP) Pulse Ox O2 Delivery O2 Flow Rate FiO2 02/02/18 07:44 97.9 88 19 103/52 (69) 94 02/02/18 05:18 16 02/02/18 04:13 98.0 75 17 118/57 (77) 94 02/02/18 00:05 98.1 86 16 120/60 (80) 97 02/01/18 19:43 02/01/18 19:41 98.1 83 18 146/74 (98) 93 02/01/18 18:45 88 18 167/72 (103) 98 Room Air 02/01/18 18:30 84 16 172/70 (104) 98 Room Air 02/01/18 18:19 83 18 203/92 (129) 98 Room Air 02/01/18 14:07 69 18 204/69 (114) 97 Room Air Physical Exam Alert awake and oriented x 3. No acute distress. Head: NC/AT Neck: No pain with any range of motion and neck. No tenderness to palpation along posterior cervical elements. Negative Spurling. Pulmonary: Normal respiratory effort. Bilateral upper extremity. Grossly neurovascular intact. Intact distal pulses. Good cap refill. Right lower extremity: No deformity. Gross neurovascular intact. Left lower extremity : Grossly intact. Tender to palpation around the greater trochanter. Left hip has full range of motion with 4/5 strength in flexion and abduction. Supple compartments. Negative Homans sign. Laboratory Laboratory Tests Test 02/01/18 13:50 02/02/18 04:41 White Blood Count 6.3 5.3 Red Blood Count 3.70 3.66 Hemoglobin 11.3 11.2 Hematocrit 33.3 32.7 Mean Corpuscular Volume 90.0 89.2 Mean Corpuscular Hemoglobin 30.6 30.5 Mean Corpuscular Hemoglobin Concent 34.0 34.2 Red Cell Distribution Width 15.2 15.0 Platelet Count 323 294 Mean Platelet Volume 7.1 7.1 Neutrophils (%) (Auto) 56.0 Lymphocytes (%) (Auto) 32.2 Monocytes (%) (Auto) 7.8 Eosinophils (%) (Auto) 3.1 Basophils (%) (Auto) 0.9 Neutrophils # (Auto) 3.5 Lymphocytes # (Auto) 2.0 Monocytes # (Auto) 0.5 Eosinophils # (Auto) 0.2 Basophils # (Auto) 0.1 CBC Comment DIFF FINAL Differential Comment Blood Urea Nitrogen 31 26 Creatinine 1.19 1.12 Random Glucose 97 81 Calcium Level 9.0 8.8 Sodium Level 140 141 Potassium Level 5.2 4.6 Chloride Level 112 109 Carbon Dioxide Level 23.1 21.9 Anion Gap 5 10 Estimat Glomerular Filtration Rate 58 62 Date/Time Source Procedure Growth Status 02/01/18 14:00 Blood Peripheral Aerobic Blood Culture - Preliminary NO GROWTH IN 1 DAY Resulted 02/01/18 14:00 Blood Peripheral Anaerobic Blood Culture - Preliminary NO GROWTH IN 1 DAY Resulted 02/01/18 10:00 Urine Clean Catch Urine Culture Pending Received Result Diagram: 02/02/18 0441 02/02/18 0441 Imaging Last 72 hours Impressions Abdomen/Pelvis CT 02/01/18 1107 Signed Impressions: Service Date/Time: Thursday, February 01, 2018 11:33 - CONCLUSION: Small avulsion type fracture greater trochanter left hip seen best series 601 image 62 and 60 Femoral neck is intact. No other etiology for the patient's pain. Small renal masses incompletely evaluated on today's exam. Rashaad Beth MD FACR Assessment & Plan Assessment and Plan 87-year-old male history of coronary artery disease and recent treatment for bacteremia secondary E Coli ESBL who presented with left hip pain. Patient stated that he fell 3 weeks ago and was seen in the emergency department in which he was told that he did not have any fracture so was sent home. Patient stated that yesterday pain worsen he therefore returned to the emergency department. CT scan reveal avulsion fracture off the left greater trochanter. Patient was neurovascular intact, has some pain with weightbearing with a minimal limp. I recommend protected 50% weightbearing with a walker for 3 more weeks then progress to full with bearing thereafter. Risks, benefits alternatives discussed the patient. All questions answered. Follow-up outpatient in 2 weeks. Evangelista Romano Jr., MD Feb 02, 2018 12:00
--- NOTE | 2018-02-02 12:30 | HHI.PR ---
Subjective Remarks Follow-up orthopedic injury. States he is having hip pain discussed with nursing. Objective Vitals Vital Signs Date Time Temp Pulse Resp B/P (MAP) Pulse Ox O2 Delivery O2 Flow Rate FiO2 02/02/18 12:21 98.1 80 19 117/59 (78) 95 02/02/18 07:44 97.9 88 19 103/52 (69) 94 02/02/18 05:18 16 02/02/18 04:13 98.0 75 17 118/57 (77) 94 02/02/18 00:05 98.1 86 16 120/60 (80) 97 02/01/18 19:43 02/01/18 19:41 98.1 83 18 146/74 (98) 93 02/01/18 18:45 88 18 167/72 (103) 98 Room Air 02/01/18 18:30 84 16 172/70 (104) 98 Room Air 02/01/18 18:19 83 18 203/92 (129) 98 Room Air 02/01/18 14:07 69 18 204/69 (114) 97 Room Air I/O 02/01/18 02/01/18 02/01/18 02/02/18 02/02/18 02/02/18 07:00 15:00 23:00 07:00 15:00 23:00 Intake Total 100 ml 240 ml Output Total 400 ml Balance 100 ml 240 ml -400 ml Intake Oral 240 ml IV Total 100 ml Output Urine Total 400 ml # Voids 1 2 Result Diagram: 02/02/18 0441 02/02/18 0441 Imaging Last Impressions Abdomen/Pelvis CT 02/01/18 1107 Signed Impressions: Service Date/Time: Thursday, February 01, 2018 11:33 - CONCLUSION: Small avulsion type fracture greater trochanter left hip seen best series 601 image 62 and 60 Femoral neck is intact. No other etiology for the patient's pain. Small renal masses incompletely evaluated on today's exam. Rashaad Beth MD FACR Objective Remarks GENERAL: This is a well-nourished, well-developed patient, in no apparent distress. SKIN: No rashes, ecchymoses or lesions. Cool and dry. CARDIOVASCULAR: Regular rate and rhythm without murmurs, gallops, or rubs. RESPIRATORY: Clear to auscultation. Breath sounds equal bilaterally. No wheezes , rales, or rhonchi. GASTROINTESTINAL: Abdomen soft, non-tender, nondistended. No guarding. MUSCULOSKELETAL: Extremities without clubbing, cyanosis, or edema. No joint tenderness, effusion, or edema noted. No calf tenderness. Negative Homans sign bilaterally. Left hip full range of motion but painful. NEUROLOGICAL: Awake and alert. Cranial nerves II through XII intact. Motor and sensory grossly within normal limits. Five out of 5 muscle strength in all muscle groups. Normal speech. 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 Stable continue pain management, 50% weightbearing on the left lower extremity with walker for 3 weeks then full weightbearing per orthopedic surgery UTI. Patient has a history of E. coli ESBL and was treated with ertapenem and Rama. He is now on Augmentin for his UTI. Coronary artery disease/Depression/ Bipolar Disorder/ BPH/HTN/Hyperlipidemia/ recent NSTEMI but refused left heart catheterization. Continue with home medication. DVT prophylaxis. Lovenox Discharge Planning Discharge patient to [facility] Condition on discharge: Improved Regular Diet as tolerated Ad Valorie activity 50% WB LLE Rx written: Lortab Follow-up with primary care physician and ortho Problem Qualifiers (1) Greater trochanter fracture: Qualified Codes: S72.115A - Nondisplaced fracture of greater trochanter of left femur, initial encounter for closed fracture Yossi Betts MD Feb 02, 2018 12:30
[2018-02-02] MEDS ORDERED: WALKER WHEELS/F1 MIS (13:10)
[2018-02-02] MEDS: ENOXAPARIN SODIUM 40 MG/0.4 ML SYRINGE SQ SCH (18:13)
[2018-02-02] MEDS: TAMSULOSIN HCL 0.4 MG CAP PO SCH (21:20)
[2018-02-02] MEDS: GABAPENTIN 300 MG CAP PO SCH (21:20)
[2018-02-03 03:29] VITALS: BP 102/55; PULSE 85; RESP 18; TEMP 98.2; O2SAT 98
[2018-02-03 07:32] VITALS: BP 119/53; PULSE 89; RESP 20; TEMP 98.5; O2SAT 93
[2018-02-03] MEDS ORDERED: HYDR-3516 PO (08:25)
--- NOTE | 2018-02-03 08:26 | HHI.DCPOC ---
Discharge Care Plan Diagnosis: (1) Greater trochanter fracture (2) UTI (urinary tract infection) Goals to Promote Your Health * To prevent worsening of your condition and complications * To maintain your health at the optimal level Directions to Meet Your Goals Take your medications as prescribed Follow your dietary instruction Follow activity as directed Keep your appointments as scheduled Take your immunizations and boosters as scheduled If your symptoms worsen call your PCP, if no PCP go to Urgent Care Center or Emergency Room Smoking is Dangerous to Your Health. Avoid second hand smoke Call the 24-hour hour crisis hotline for domestic abuse at Blossom Ren PA-C Feb 03, 2018 8:26 am
[2018-02-03] MEDS: ENALAPRIL MALEATE 5 MG TAB PO SCH (08:44)
[2018-02-03] MEDS: ISOSORBIDE MONONITRATE 30 MG CR TAB (IMDUR) PO SCH (08:46)
[2018-02-03] MEDS: PANTOPRAZOLE SOD 20 MG DELAYED RELEASE TAB PO SCH (08:46)
[2018-02-03] MEDS: CLOPIDOGREL 75 MG TAB PO SCH (08:46)
[2018-02-03] MEDS: AMOXICILLIN/CLAVULANATE K 875 MG TAB PO SCH (08:46)
[2018-02-03] MEDS: FERROUS SULFATE 325 MG (65 MG ELEMENTAL IRON) TAB PO SCH ×2 (08:46→17:13)
[2018-02-03] MEDS: PRAVASTATIN SOD 40 MG TAB PO SCH (08:46)
[2018-02-03] MEDS: TIMOLOL MALEATE 0.5% OPHT SOLN 5 ML BTL LEFT EYE SCH (08:48)
[2018-02-03] MEDS: SODIUM CHLORIDE 0.9% FLUSH 10 ML FLUSH IV FLUSH SCH (08:48)
[2018-02-03] MEDS: CARVEDILOL 3.125 MG TAB PO SCH (10:17)
[2018-02-03 12:21] VITALS: BP 142/63; PULSE 87; RESP 18; TEMP 98.6; O2SAT 95
--- NOTE | 2018-02-03 13:47 | HHI.PR ---
Subjective Remarks Follow-up orthopedic injury. States left hip pain is under control agrees with SNF. Discussed with nursing Objective Vitals Vital Signs Date Time Temp Pulse Resp B/P (MAP) Pulse Ox O2 Delivery O2 Flow Rate FiO2 02/03/18 12:21 98.6 87 18 142/63 (89) 95 02/03/18 07:32 98.5 89 20 119/53 (75) 93 02/03/18 03:29 98.2 85 18 102/55 (71) 98 02/02/18 22:58 98.2 85 18 103/57 (72) 93 02/02/18 22:21 16 02/02/18 19:33 98.2 79 18 118/58 (78) 95 02/02/18 16:30 96.5 78 16 106/55 (72) 95 I/O 02/02/18 02/02/18 02/02/18 02/03/18 02/03/18 02/03/18 07:00 15:00 23:00 07:00 15:00 23:00 Intake Total 360 ml Output Total 500 ml 400 ml Balance -500 ml -40 ml Intake Oral 360 ml Output Urine Total 500 ml 400 ml Result Diagram: 02/02/18 0441 02/02/18 0441 Imaging Last Impressions Abdomen/Pelvis CT 02/01/18 1107 Signed Impressions: Service Date/Time: Thursday, February 01, 2018 11:33 - CONCLUSION: Small avulsion type fracture greater trochanter left hip seen best series 601 image 62 and 60 Femoral neck is intact. No other etiology for the patient's pain. Small renal masses incompletely evaluated on today's exam. Rashaad Beth MD FACR Objective Remarks GENERAL: This is a well-nourished, well-developed patient, in no apparent distress. SKIN: No rashes, ecchymoses or lesions. Cool and dry. CARDIOVASCULAR: Regular rate and rhythm without murmurs, gallops, or rubs. RESPIRATORY: Clear to auscultation. Breath sounds equal bilaterally. No wheezes , rales, or rhonchi. GASTROINTESTINAL: Abdomen soft, non-tender, nondistended. No guarding. MUSCULOSKELETAL: Extremities without clubbing, cyanosis, or edema. No joint tenderness, effusion, or edema noted. No calf tenderness. Negative Homans sign bilaterally. Left hip full range of motion but painful. NEUROLOGICAL: Awake and alert. Cranial nerves II through XII intact. Motor and sensory grossly within normal limits. Five out of 5 muscle strength in all muscle groups. Normal speech. 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 Stable continue pain management, 50% weightbearing on the left lower extremity with walker for 3 weeks then full weightbearing per orthopedic surgery UTI. Patient has a history of E. coli ESBL and was treated with ertapenem and Rama. He is now on Augmentin for his UTI. Coronary artery disease/Depression/ Bipolar Disorder/ BPH/HTN/Hyperlipidemia/ recent NSTEMI but refused left heart catheterization. Continue with home medication. DVT prophylaxis. Lovenox Discharge Planning Discharge patient to SNF Condition on discharge: Improved Regular Diet as tolerated Ad Valorie activity 50% WB LLE Rx written: Lortab Follow-up with primary care physician and ortho Problem Qualifiers (1) Greater trochanter fracture: Qualified Codes: S72.115A - Nondisplaced fracture of greater trochanter of left femur, initial encounter for closed fracture Yossi Betts MD Feb 03, 2018 13:47
[2018-02-03] MEDS: ACETAMINOPHEN/HYDROcodone 325 MG/5 MG TAB PO PRN (15:03)
[2018-02-03 16:31] VITALS: BP 123/60; PULSE 96; RESP 16; TEMP 97.9; O2SAT 96
[2018-02-03] MEDS: ENOXAPARIN SODIUM 40 MG/0.4 ML SYRINGE SQ SCH (17:13)
== END 2018-02-03 18:58 | disposition home or self-care (01) ==
LOC: NEPD 09:27 → NEDA 16:20 → NEPFCDU 19:33
PROVIDERS: ADMIT Internal Medicine; ATTEND Internal Medicine
DX: S72.115D Nondisplaced fracture of greater trochanter of left femur, subsequent encounter for closed fracture with routine healing (principal); N39.0 Urinary tract infection, site not specified; B96.20 Unspecified Escherichia coli [E. coli] as the cause of diseases classified elsewhere; I10 Essential (primary) hypertension; I25.10 Atherosclerotic heart disease of native coronary artery without angina pectoris; I25.2 Old myocardial infarction; E11.9 Type 2 diabetes mellitus without complications; E78.00 Pure hypercholesterolemia, unspecified; N40.0 Benign prostatic hyperplasia without lower urinary tract symptoms; E78.5 Hyperlipidemia, unspecified; F03.90 Unspecified dementia, unspecified severity, without behavioral disturbance, psychotic disturbance, mood disturbance, and anxiety; F31.9 Bipolar disorder, unspecified; Z23 Encounter for immunization; Z86.73 Personal history of transient ischemic attack (TIA), and cerebral infarction without residual deficits; Z91.81 History of falling; W19.XXXD Unspecified fall, subsequent encounter
CPT/HCPCS: 74176; 80048; 81001; 85025; 85027; 86403; 87040; 87086; 87205; 90732; 96365; 96372; 96375; 97110; 97116; 97162; 99285; G0008; G0378; G8987; G8988; J0696; J1650; 90471

== ENCOUNTER 2018-02-24 11:09 | Observation (INO) | payer OTHER ==
[2018-02-24] VITALS (10 sets, daily range): BP systolic 106–171; BP diastolic 55–75; PULSE 52–71; RESP 16–18; TEMP 97.6–97.9; O2SAT 95–99
[~2018-02-24] VITALS: Ht 172.7 cm; Wt 74.0 kg
[~2018-02-24 11:09] MED LIST changes: +AMOX875T2 PO; -BACT800T5 PO; -EPIN1INJ21 IV PUSH; +GABA300C5 PO; +HYDR-3516 PO; -INVA1INJ IV; -SOLU250I IV PUSH; +WALKER WHEELS/F1 MIS; +[UNRECOGNIZED DRUG - CODE]
[2018-02-24] MEDS ORDERED: SODIUM CHLORID 0.9% 500 ML INJ 500 ML IV ONE (11:30)
[2018-02-24] MEDS ORDERED: SODIUM CHLORIDE 0.9% FLUSH 10 ML FLUSH IVF PRN (11:30)
[2018-02-24 11:44] LABS: AUTOMATED NEUTROPHIL # 3.9 TH/MM3 (1.8-7.7); BASOPHIL % 0.7 % (0.0-2.0); EOSINOPHIL # 0.1 TH/MM3 (0-0.4); EOSINOPHIL % 1.3 % (0.0-4.0); HEMATOCRIT 32.6 % (39.0-51.0); LYMPHOCYTE # 2.2 TH/MM3 (1.0-4.8); MEAN CELL VOLUME 90.4 FL (80.0-100.0); MEAN CORPUSCULAR HEMOGLOBIN 30.5 PG (27.0-34.0); MEAN CORPUSCULAR HGB CONC 33.7 % (32.0-36.0); MONO % 10.5 % (0.0-8.0); MONOCYTE # 0.7 TH/MM3 (0-0.9); NEUT % 55.5 % (16.0-70.0); PLATELET COUNT 291 TH/MM3 (150-450); RED BLOOD COUNT 3.61 MIL/MM3 (4.50-5.90); RED CELL DISTRIBUTION WIDTH 15.6 % (11.6-17.2); WHITE BLOOD COUNT 6.9 TH/MM3 (4.0-11.0)
[2018-02-24 11:51] LABS: PROTHROMBIN TIME - PATIENT 10.6 SEC (9.8-11.6)
[2018-02-24 11:59] LABS: BICARBONATE 23.9 MEQ/L (21.0-32.0); CALCIUM 8.6 MG/DL (8.5-10.1); CREATININE 1.28 MG/DL (0.60-1.30)
[2018-02-24 12:02] LABS: TROPONIN I 0.03 NG/ML (0.02-0.05)
--- NOTE | 2018-02-24 12:08 | RADRPT ---
EXAM DATE/TIME: 02/24/2018 11:53 [facility] COMPARISON: CHEST SINGLE AP, January 18, 2018, 13:36. INDICATIONS : Vomiting MEDICAL HISTORY : None. SURGICAL HISTORY : None. ENCOUNTER: Initial ACUITY: 3 days PAIN SCORE: 0/10 LOCATION: Bilateral chest FINDINGS: The heart is stable. The pulmonary vascular and is normal. The lungs are clear. CONCLUSION: No acute cardiopulmonary disease. Francisco Persaud MD on February 24, 2018 at 12:06 Board Certified Radiologist. This report was verified electronically.
--- NOTE | 2018-02-24 12:16 | RADRPT ---
EXAM DATE/TIME: 02/24/2018 12:02 [facility] COMPARISON: CT BRAIN W/O CONTRAST, January 18, 2018, 14:00. INDICATIONS : Syncope with vomiting and dyspnea. RADIATION DOSE: 56.35 CTDIvol (mGy) MEDICAL HISTORY : Hypertension. Cardiovascular disease Diabetes mellitus type 1. SURGICAL HISTORY : None. ENCOUNTER: Initial ACUITY: 1 day PAIN SCALE: 0/10 LOCATION: Bilateral cranial TECHNIQUE: Multiple contiguous axial images were obtained of the head. Using automated exposure control and adj ustment of the mA and/or kV according to patient size, radiation dose was kept as low as reasonably a chievable to obtain optimal diagnostic quality images. DICOM format image data is available electro nically for review and comparison. FINDINGS: CEREBRUM: Age-related volume loss is noted. Scattered old tiny lacunar infarcts are noted within the bilateral basal ganglia. Mild periventricular and subcortical white matter small vessel ischemic changes are no ton bilaterally. No evidence of midline shift, mass lesion, hemorrhage or acute infarction. No extra -axial fluid collections are seen. POSTERIOR FOSSA: The cerebellum and brainstem are intact. The 4th ventricle is midline. The cerebellopontine angle i s unremarkable. EXTRACRANIAL: The visualized portion of the orbits is intact. SKULL: The calvaria is intact. No evidence of skull fracture. CONCLUSION: 1. 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 2. Age-related volume loss. 3. Mild periventricular and subcortical white matter small vessel ischemic changes bilaterally. 4. No acute infarct, acute hemorrhage, midline shift or extra-axial fluid collections. Francisco Persaud MD on February 24, 2018 at 12:12 Board Certified Radiologist. This report was verified electronically.
--- NOTE | 2018-02-24 12:26 | RADRPT ---
EXAM DATE/TIME: 02/24/2018 12:02 [facility] COMPARISON: CT ABDOMEN & PELVIS W/O CONTRAST, February 01, 2018, 11:33. INDICATIONS : Syncope with vomiting and dyspnea. ORAL CONTRAST: No oral contrast ingested. RADIATION DOSE: 6.91 CTDIvol (mGy) MEDICAL HISTORY : Hypertension. Diabetes mellitus type 1. Cardiovascular disease SURGICAL HISTORY : None. ENCOUNTER: Initial ACUITY: 1 day PAIN SCALE: 0/10 LOCATION: abdomen TECHNIQUE: Volumetric scanning of the abdomen and pelvis was performed. Using automated exposure control and ad justment of the mA and/or kV according to patient size, radiation dose was kept as low as reasonably achievable to obtain optimal diagnostic quality images. DICOM format image data is available electro nically for review and comparison. FINDINGS: LOWER LUNGS: Right middle lobe fibrotic scarring is noted. The heart is prominent. Coronary artery cavitations are noted. Tiny pericardial effusion is noted LIVER: Homogeneous density without lesion. There is no dilation of the biliary tree. No calcified gallston es. Status post cholecystectomy. SPLEEN: Normal size without lesion. PANCREAS: Within normal limits. KIDNEYS: Normal in size and shape. There are stable bilateral renal lesions, some of which are indeterminate. Nonemergent outpatient contrast-enhanced examination may be helpful for further evaluation of these lesions if clinically indicated. There is no stone or hydronephrosis. ADRENAL GLANDS: Within normal limits. VASCULAR: There is no aortic aneurysm. BOWEL/MESENTERY: The stomach, small bowel, and colon demonstrate no acute abnormality. There is no free intraperitone al air or fluid. ABDOMINAL WALL: Within normal limits. RETROPERITONEUM: There is no lymphadenopathy. BLADDER: Urinary bladder wall thickening is noted raising the possibility of cystitis. Clinical correlation is recommended. REPRODUCTIVE: Within normal limits. INGUINAL: There is no lymphadenopathy or hernia. There is an indeterminate subcutaneous nodule within the right inguinal region which is stable compared to previous examination and measures 2.4 cm. MUSCULOSKELETAL: Fracture of the left greater trochanter is again noted. Degenerative changes and scoliosis of the lum bar spine are noted. CONCLUSION: 1. Urinary bladder wall thickening raising the possibility of cystitis. 2. Stable fracture of the left greater trochanter. 3. Multiple stable indeterminate renal lesions bilaterally. 4. Cardiomegaly, coronary artery calcifications and tiny pericardial effusion. 5. Degenerative changes and scoliosis of the lumbar spine. 6. Right middle lobe fibrotic scarring. Francisco Persaud MD on February 24, 2018 at 12:15 Board Certified Radiologist. This report was verified electronically.
[2018-02-24] MEDS ORDERED: TIMO0.257 EACH EYE (12:54)
--- NOTE | 2018-02-24 13:50 | PD ---
HPI Chief Complaint: Syncope/Near-Syncope Time Seen by Provider: 11:18 Travel History International Travel<30 days: No Contact w/Intl Traveler<30days: No Traveled to known affect area: No History of Present Illness HPI 87-year-old male was brought to the emergency room by EMS after a syncopal episode at a doctor's waiting room. Patient says that he was diagnosed with a hip fracture and was waiting to see the orthopedist. He suddenly started to get lightheaded and passed out. As per EMS when they arrived patient had vomited. Complaining of epigastric pain. Vital signs were stable. Patient appears to be in moderate distress and difficult to get history. Vital signs in the emergency room are stable. He did point to his epigastric region when I asked him the location of the pain. No radiation of the pain. Patient seemed to be okay this morning before coming to the doctor's office. PFSH Past Medical History Narrative Medical List of his past medical, surgical, social and family history is reviewed from the nursing note. Hx Anticoagulant Therapy: Yes (PLAVIX ) Anemia: Yes Arthritis: Yes Asthma: No Blood Disorders: No Bipolar Disorder: Yes Anxiety: No Depression: Yes Heart Rhythm Problems: Yes Cancer: No Cardiovascular Problems: Yes High Cholesterol: Yes Chest Pain: No Congestive Heart Failure: No COPD: No Cerebrovascular Accident: Yes Dementia: Yes Diabetes: Yes Patient Takes Glucophage: No Diminished Hearing: No Endocrine: No Gastrointestinal Disorders: Yes Genitourinary: Yes (UTI) Headaches: Yes Hepatitis: No Hiatal Hernia: No Hypertension: Yes Immune Disorder: No Musculoskeletal: Yes (2 BACK SURGERIES IN THE PAST.) Neurologic: No Psychiatric: No Reproductive: No Respiratory: No Immunizations Current: Yes Migraines: No Myocardial Infarction: No Seizures: No Sleep Apnea: No Thyroid Disease: No Ulcer: No Influenza Vaccination: Yes Past Surgical History Appendectomy: No Cholecystectomy: Yes Other Surgery: Yes (BACK SURGERY <20 YEARS AGO) Social History Alcohol Use: No Tobacco Use: No Substance Use: No Allergies-Medications (Allergen,Severity, Reaction): Coded Allergies: No Known Allergies (Verified Adverse Reaction, Unknown, 02/24/18) Comments No known drug allergies. Reported Meds & Prescriptions Reported Meds & Active Scripts Active Epinephrine Inj 1 Mg/Ml (1 Ml) Inj 0.3 Mg SQ ONCE PRN Give with any signs of respiratory distress. Isosorbide Mononitrate ER (Isosorbide Mononitrate) 30 Mg Martha 30 Mg PO DAILY@07 Plavix (Clopidogrel Bisulfate) 75 Mg Tab 75 Mg PO DAILY Coreg (Carvedilol) 3.125 Mg Tab 3.125 Mg PO Q12HR Reported Timolol Opth Drops 0.25 % Soln 1 Drop EACH EYE BID Gabapentin 300 Mg Cap 300 Mg PO HS Ferrous Sulfate 325 Mg (65 Mg Iron) Tablet 325 Mg PO BIDPC Omeprazole 20 Mg Tab 20 Mg PO DAILY Pravachol (Pravastatin) 40 Mg Tab 40 Mg PO DAILY Flomax (Tamsulosin HCl) 0.4 Mg Cap 0.4 Mg PO HS Enalapril (Enalapril Maleate) 5 Mg Tab 5 Mg PO DAILY Narrative Medication List of his home medications reviewed from the nursing note. Review of Systems Except as stated in HPI: all other systems reviewed are Neg Gastrointestinal: Positive: Nausea, Vomiting, Abdominal Pain Neurologic: Positive: Syncope Physical Exam Narrative GENERAL: Elderly, frail, moderate distress, alert SKIN: Focused skin assessment warm/dry. Pale HEAD: Atraumatic. Normocephalic. EYES: Pupils equal and round. No scleral icterus. No injection or drainage. ENT: No nasal bleeding or discharge. Mucous membranes pink and moist. NECK: Trachea midline. No JVD. CARDIOVASCULAR: Regular rate and rhythm. No murmur appreciated. RESPIRATORY: No accessory muscle use. Clear to auscultation. Breath sounds equal bilaterally. GASTROINTESTINAL: Abdomen soft, non-tender, nondistended. Hepatic and splenic margins not palpable. MUSCULOSKELETAL: No obvious deformities. No clubbing. No cyanosis. No edema. NEUROLOGICAL: Awake and alert. No obvious cranial nerve deficits. Motor grossly within normal limits. Normal speech. PSYCHIATRIC: Appropriate mood and affect; insight and judgment normal. Data Data Last Documented VS Orders Orders Prothrombin Time / Inr (Pt) (02/24/18 11:29) Complete Blood Count With Diff (02/24/18 11:29) Basic Metabolic Panel (Bmp) (02/24/18 11:29) Troponin I (02/24/18 11:29) Ct Brain W/O Iv Contrast(Rout) (02/24/18 11:29) Chest, Single Ap (02/24/18 11:29) Ecg Monitoring (02/24/18 11:29) Iv Access Insert/Monitor (02/24/18 11:29) Oximetry (02/24/18 11:29) Sodium Chloride 0.9% Flush (Ns Flush) (02/24/18 11:30) Ct Abd/Pel W/O Iv Contrast (02/24/18 ) Sodium Chlorid 0.9% 500 Ml Inj (Ns 500 M (02/24/18 11:30) Electrocardiogram (02/24/18 11:16) Admit Order (Ed Use Only) (02/24/18 14:05) Labs Laboratory Tests Test 02/24/18 11:35 White Blood Count 6.9 TH/MM3 Red Blood Count 3.61 MIL/MM3 Hemoglobin 11.0 GM/DL Hematocrit 32.6 % Mean Corpuscular Volume 90.4 FL Mean Corpuscular Hemoglobin 30.5 PG Mean Corpuscular Hemoglobin Concent 33.7 % Red Cell Distribution Width 15.6 % Platelet Count 291 TH/MM3 Mean Platelet Volume 8.0 FL Neutrophils (%) (Auto) 55.5 % Lymphocytes (%) (Auto) 32.0 % Monocytes (%) (Auto) 10.5 % Eosinophils (%) (Auto) 1.3 % Basophils (%) (Auto) 0.7 % Neutrophils # (Auto) 3.9 TH/MM3 Lymphocytes # (Auto) 2.2 TH/MM3 Monocytes # (Auto) 0.7 TH/MM3 Eosinophils # (Auto) 0.1 TH/MM3 Basophils # (Auto) 0.0 TH/MM3 CBC Comment DIFF FINAL Differential Comment Prothrombin Time 10.6 SEC Prothromb Time International Ratio 1.0 RATIO D-Dimer Quantitative (PE/DVT) 2.54 MG/L FEU Blood Urea Nitrogen 26 MG/DL Creatinine 1.28 MG/DL Random Glucose 132 MG/DL Calcium Level 8.6 MG/DL Sodium Level 143 MEQ/L Potassium Level 4.3 MEQ/L Chloride Level 111 MEQ/L Carbon Dioxide Level 23.9 MEQ/L Anion Gap 8 MEQ/L Estimat Glomerular Filtration Rate 53 ML/MIN Troponin I 0.03 NG/ML [facility] Medical Decision Making Medical Screen Exam Complete: Yes Emergency Medical Condition: Yes Medical Record Reviewed: Yes Interpretation(s) Twelve-lead EKG was reviewed by me. Normal sinus rhythm, bradycardia, left axis deviation, left bundle branch block that looks unchanged from his last EKG. Heart rate of 56 bpm. Differential Diagnosis ACS, non-STEMI, acute pancreatitis, small bowel obstruction, intracranial bleed Narrative Course 1:47 PM blood test results of back and within acceptable limits. CT scan of his head and abdomen and pelvis are essentially negative for any acute issues. Patient was given IV fluid bolus. I would like to admit him at least for observation at this point. Awaiting for the hospitalist to call back. Procedures EKG Prior to Arrival: No Diagnosis Primary Impression: Syncope Qualified Codes: R55 - Syncope and collapse Additional Impression: Abdominal pain Qualified Codes: R10.13 - Epigastric pain Admitting Information Admitting Physician Requests: Observation Scripts Amoxicillin-Clavulanate (Amoxicillin-Clavulanate) 875-125 mg Tab 875 MG PO Q12HR for UTI for 10 Days, TAB not for use in CrCl <30 mL/minute Prov: Eliezer Carrizales MD 02/26/18 Suman Negro MD Feb 24, 2018 13:49
[2018-02-24] MEDS ORDERED: ONDANSETRON HCL 4 MG/2 ML VIAL IVP PRN (14:15)
[2018-02-24] MEDS ORDERED: NALOXONE HCL 0.4 MG/ML AMP IV PUSH PRN (14:15)
[2018-02-24] MEDS ORDERED: SODIUM CHLORIDE 0.9% FLUSH 10 ML FLUSH IV FLUSH PRN (14:15)
--- NOTE | 2018-02-24 15:00 | RADRPT ---
EXAM DATE/TIME: 02/24/2018 14:18 [facility] COMPARISON: US CAROTID ARTERIES, October 07, 2011, 17:50. INDICATIONS : Syncope. MEDICAL HISTORY : Dementia. Hypercholesterolemia. Arthritis. Cataracts. CVA. HTN. UTI. Rheumatoid arthritis. Diabetes. Anemia. Bipolar disorder. Depression. Anxiety. Anticoagulant therapy, Plavix. ESBL. SURGICAL HISTORY : Cholecystectomy. Back surgeries x2. ENCOUNTER: Initial ACUITY: 1 day PAIN SCORE: 0/10 LOCATION: Bilateral neck PEAK SYSTOLIC VELOCITIES (cm/sec): ICA/CCA RATIO: Right: 0.9 Left: 1.5 ICA: Right: 69 Left: 135 CCA: Right: 78 Left: 88 ECA: Right: 199 Left: 95 VERTEBRAL: Right: 47 antegrade Left: 42 antegrade Elevated flow velocities and ICA/CCA ratios have been found to correlate with increased degrees of vessel stenosis, calculated as percentage of diameter relative to a normal segment of distal ICA/CCA FINDINGS: RIGHT CAROTID: Calcified plaque involving the proximal ICA and ECA. The calcified nature generates shadowing which l imits the grayscale analysis. The waveforms are within normal limits. LEFT CAROTID: Calcified plaque involving the proximal ICA and ECA. The calcified nature generates shadowing which l imits the grayscale analysis. The waveforms are within normal limits. VERTEBRAL ARTERIES: Antegrade flow is seen in both vertebral arteries. MISCELLANEOUS: None. CONCLUSION: 1. Calcified plaque involving the carotid arteries bilaterally with less than 50% stenoses. 2. Antegrade flow involving both vertebral arteries. Alcides Black Jr., MD on February 24, 2018 at 14:55 Board Certified Radiologist. This report was verified electronically.
--- NOTE | 2018-02-24 15:20 | HHI.HP ---
[facility] Admission Diagnosis syncope, abdominal pain Diagnoses: Travel History International Travel<30 Days: No Contact w/Intl Traveler <30 Da: No Traveled to Known Affected Are: No History of Present Illness History from patient, ER physician communication, and review of medical records. Patient reported that he went to his orthopedics clinic today. He has had a left hip fracture which was nonsurgical and he was going there for follow-up. While at the clinic, he started having blurry vision, felt extremely nauseous, with severe headaches. He stated he then vomited a few times there. The office therefore called 911. Patient denies any pains in his chest. He reports that his pain is in his abdomen pointing to his mid epigastric area. He reports his vomitus was green in color. Denies any diarrhea or constipation. Denies fever. Patient reports he lives at [facility] for the past 2 years. He was there about 5 years ago for rehabilitation after hospital discharge as well. On review of system, patient denies any other symptoms apart from above. Review of Systems Except as stated in HPI: all other systems reviewed are Neg Past Family Social History Past Medical History htn bph cad cva 2 yrs ago Past Surgical History appendectomy Allergies: Coded Allergies: No Known Allergies (Verified Adverse Reaction, Unknown, 02/24/18) Family History 2 sisters- had stroke Social History never smoked denies etoh abuse or drug abuse Physical Exam Vital Signs Vital Signs Date Time Temp Pulse Resp B/P (MAP) Pulse Ox O2 Delivery O2 Flow Rate FiO2 02/24/18 14:05 16 99 Nasal Cannula 2.00 02/24/18 11:17 97.8 58 16 147/67 (93) 95 Physical Exam GENERAL: This is a well-nourished, well-developed patient, in no apparent distress. A pleasant gentleman SKIN: No rashes, ecchymoses or lesions. Cool and dry. HEAD: Atraumatic. Normocephalic. No temporal or scalp tenderness. EYES:No scleral icterus. No injection or drainage. ENT: Nose without bleeding, purulent drainage or septal hematoma. Airway patent. NECK: Trachea midline. No JVD. Supple, nontender, no meningeal signs. CARDIOVASCULAR: Regular rate and rhythm without murmurs, gallops, or rubs. RESPIRATORY: Clear to auscultation. Breath sounds equal bilaterally. No wheezes , rales, or rhonchi. GASTROINTESTINAL: Abdomen soft, nondistended No guarding. Tenderness at mid epigastrium. MUSCULOSKELETAL: Extremities without clubbing, cyanosis, or edema. No calf tenderness NEUROLOGICAL: Awake and alert. Motor and sensory grossly within normal limits. Normal speech. Laboratory Laboratory Tests Test 02/24/18 11:35 White Blood Count 6.9 Red Blood Count 3.61 Hemoglobin 11.0 Hematocrit 32.6 Mean Corpuscular Volume 90.4 Mean Corpuscular Hemoglobin 30.5 Mean Corpuscular Hemoglobin Concent 33.7 Red Cell Distribution Width 15.6 Platelet Count 291 Mean Platelet Volume 8.0 Neutrophils (%) (Auto) 55.5 Lymphocytes (%) (Auto) 32.0 Monocytes (%) (Auto) 10.5 Eosinophils (%) (Auto) 1.3 Basophils (%) (Auto) 0.7 Neutrophils # (Auto) 3.9 Lymphocytes # (Auto) 2.2 Monocytes # (Auto) 0.7 Eosinophils # (Auto) 0.1 Basophils # (Auto) 0.0 CBC Comment DIFF FINAL Differential Comment Prothrombin Time 10.6 Prothromb Time International Ratio 1.0 D-Dimer Quantitative (PE/DVT) 2.54 Blood Urea Nitrogen 26 Creatinine 1.28 Random Glucose 132 Calcium Level 8.6 Sodium Level 143 Potassium Level 4.3 Chloride Level 111 Carbon Dioxide Level 23.9 Anion Gap 8 Estimat Glomerular Filtration Rate 53 Troponin I 0.03 Result Diagram: 02/24/18 1135 02/24/18 1135 Imaging Last [address] 02/24/18 112 Signed Impressions: Service Date/Time: Saturday, February 24, 2018 12:02 - CONCLUSION: 1. 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 2. Age-related volume loss. 3. Mild periventricular and subcortical white matter small vessel ischemic changes bilaterally. 4. No acute infarct, acute hemorrhage, midline shift or extra-axial fluid collections. Francisco Persaud MD Chest X-Ray 02/24/18 1129 Signed Impressions: Service Date/Time: Saturday, February 24, 2018 11:53 - CONCLUSION: No acute cardiopulmonary disease. Francisco Persaud MD Abdomen/Pelvis CT 02/24/18 0000 Signed Impressions: Service Date/Time: Saturday, February 24, 2018 12:02 - CONCLUSION: 1. Urinary bladder wall thickening raising the possibility of cystitis. 2. Stable fracture of the left greater trochanter. 3. Multiple stable indeterminate renal lesions bilaterally. 4. Cardiomegaly, coronary artery calcifications and tiny pericardial effusion. 5. Degenerative changes and scoliosis of the lumbar spine. 6. Right middle lobe fibrotic scarring. Francisco Persaud MD Caprini VTE Risk Assessment Caprini VTE Risk Assessment: Mod/High Risk (score >= 2) Caprini Risk Assessment Model Point Value = 1 Point Value = 2 Point Value = 3 Point Value = 5 Age 41-60 Minor surgery BMI > 25 kg/m2 Swollen legs Varicose veins or History of unexplained or recurrent spontaneous Oral contraceptives or hormone replacement Sepsis (< 1 month) Serious lung disease, including pneumonia (< 1 month) Abnormal pulmonary function Acute myocardial infarction Congestive heart failure (< 1 month) History of inflammatory bowel disease Medical patient at bed rest Age 61-74 Arthroscopic surgery Major open surgery (> 45 min) Laparoscopic surgery (> 45 min) Malignancy Confined to bed (> 72 hours) Immobilizing plaster cast Central venous access Age >= 75 History of VTE Family history of VTE Factor V Leiden Prothrombin [id number] Lupus anticoagulant Anticardiolipin antibodies Elevated serum homocysteine Heparin-induced thrombocytopenia Other congenital or acquired thrombophilia Stroke (< 1 month) Elective arthroplasty Hip, pelvis, or leg fracture Acute spinal cord injury (< 1 month) Prophylaxis Regimen Total Risk Factor Score Risk Level Prophylaxis Regimen 0-1 Low Early ambulation 2 Moderate Order ONE of the following: *Sequential Compression Device (SCD) *Heparin 5000 units SQ BID 3-4 Higher Order ONE of the following medications: *Heparin 5000 units SQ TID *Enoxaparin/Lovenox 40 mg SQ daily (WT < 150 kg, CrCl > 30 mL/min) *Enoxaparin/Lovenox 30 mg SQ daily (WT < 150 kg, CrCl > 10-29 mL/min) *Enoxaparin/Lovenox 30 mg SQ BID (WT < 150 kg, CrCl > 30 mL/min) AND/OR *Sequential Compression Device (SCD) 5 or more Highest Order ONE of the following medications: *Heparin 5000 units SQ TID (Preferred with Epidurals) *Enoxaparin/Lovenox 40 mg SQ daily (WT < 150 kg, CrCl > 30 mL/min) *Enoxaparin/Lovenox 30 mg SQ daily (WT < 150 kg, CrCl > 10-29 mL/min) *Enoxaparin/Lovenox 30 mg SQ BID (WT < 150 kg, CrCl > 30 mL/min) AND *Sequential Compression Device (SCD) Assessment and Plan Assessment and Plan Impression: gastritis possible pancreatitis near syncope with vomiting, nausea- recent hip fx, r/o pe Suspect early bronchitis/pneumonia. Patient with increased cough in the past one week. Cystitis on CT imaging LBBB.Old. htn bph cad cva 2 yrs ago Plan: d dimer lipase level vq scan if d dimer elevated orthostatic bp pt has some cough, but no fever, no leukocytosis watch for early pneumonia Start patient on levofloxacin for both cystitis and possible early pneumonia. check UA Medications reconciliation has been done by two way radio technician Becky. Staff have been ordered to get patient's records from [facility] so that we have contact information, CODE STATUS etc. patient reports he does not have any close family members DVT prophylaxis with SCD Discussed Condition With patient, ER Nurse, ER physician Leela Mcdowell MD Feb 24, 2018 15:20
[2018-02-24 16:11] LABS: TROPONIN I 0.02 NG/ML (0.02-0.05)
--- NOTE | 2018-02-24 16:50 | RADRPT ---
EXAM DATE/TIME: 02/24/2018 15:42 [facility] COMPARISON: No previous studies available for comparison. INDICATIONS : Syncope. Elevated labs with shortness of breath. DOSE: 1.2 mCi Tc99m MAA IV 33 mCi Tc99m DTPA aerosol MEDICAL HISTORY : Hypertension. Benign prostatic hyperplasia (BPH). Cardiovascular disease SURGICAL HISTORY : Appendectomy. ENCOUNTER: Initial ACUITY: 1 day PAIN SCALE: 0/10 LOCATION: chest TECHNIQUE: Following five minutes of tidal breathing of DTPA aerosol, planar images of the lungs were performed in eight projections. The patient was then injected with MAA, and eight-view perfusion scan was perf ormed. FINDINGS: There is a homogeneous pattern of aerosol delivery to the periphery of both lungs. No focal ventilat ory defects are seen. The perfusion lung scan demonstrates a homogenous pattern of uptake in both lungs. No segmental or s ubsegmental defects are seen. CONCLUSION: No perfusion defects. Elevated left hemidiaphragm. Low probability for pulmonary embolus. Patrick Campos MD on February 24, 2018 at 16:46 Board Certified Radiologist. This report was verified electronically.
[2018-02-24] MEDS ORDERED: LEVOFLOXACIN 500 MG TAB PO ONE (17:00)
[2018-02-24] MEDS: FERROUS SULFATE 325 MG (65 MG ELEMENTAL IRON) TAB PO SCH (17:53)
[2018-02-24] MEDS: TIMOLOL MALEATE 0.25% OPHT SOLN 5 ML BTL EACH EYE SCH (21:00)
[2018-02-24] MEDS: GABAPENTIN 300 MG CAP PO SCH (21:01)
[2018-02-24] MEDS: SODIUM CHLORIDE 0.9% FLUSH 10 ML FLUSH IV FLUSH SCH (21:01)
[2018-02-24] MEDS: CARVEDILOL 3.125 MG TAB PO SCH (21:01)
[2018-02-24] MEDS: TAMSULOSIN HCL 0.4 MG CAP PO SCH (21:01)
[2018-02-24 21:31] LABS: TROPONIN I 0.02 NG/ML (0.02-0.05)
[2018-02-24 22:02] LABS: AMORPHOUS SEDIMENT, URINE RARE; BACTERIA, URINE MANY /hpf; BILIRUBIN, URINE NEG (NEG); BLOOD, URINE SMALL (NEG); GLUCOSE,URINE NEG (NEG); HYALINE CAST, URINE 12 /lpf (RARE); KETONE, URINE TRACE mg/dL (NEG); MUCUS URINE FEW /lpf (OCC); NITRITE,URINE POS (NEG); PH, URINE 5.5 (5.0-8.5); SQUAMOUS EPITHELIAL CELL URINE 3 /hpf (0-5); URINE COLOR YELLOW (YELLW/STRAW); URINE LEUKOCYTE ESTERASE LARGE (NEG)
[2018-02-25] VITALS (7 sets, daily range): BP systolic 122–184; BP diastolic 57–79; PULSE 62–74; RESP 16–20; TEMP 97.3–98.4; O2SAT 94–97
[2018-02-25] MEDS: ISOSORBIDE MONONITRATE 30 MG CR TAB (IMDUR) PO SCH (06:48)
[2018-02-25 07:27] LABS: AUTOMATED NEUTROPHIL # 3.2 TH/MM3 (1.8-7.7); BASOPHIL % 0.7 % (0.0-2.0); EOSINOPHIL # 0.1 TH/MM3 (0-0.4); EOSINOPHIL % 1.8 % (0.0-4.0); HEMATOCRIT 31.1 % (39.0-51.0); HEMOGLOBIN 10.6 GM/DL (13.0-17.0); LYMPH % 32.9 % (9.0-44.0); MEAN CELL VOLUME 89.8 FL (80.0-100.0); MEAN CORPUSCULAR HEMOGLOBIN 30.6 PG (27.0-34.0); MEAN CORPUSCULAR HGB CONC 34.1 % (32.0-36.0); MEAN PLATELET VOLUME 7.7 FL (7.0-11.0); MONO % 10.2 % (0.0-8.0); MONOCYTE # 0.6 TH/MM3 (0-0.9); NEUT % 54.4 % (16.0-70.0); PLATELET COUNT 234 TH/MM3 (150-450); RED BLOOD COUNT 3.46 MIL/MM3 (4.50-5.90); RED CELL DISTRIBUTION WIDTH 15.4 % (11.6-17.2)
[2018-02-25] MEDS: SODIUM CHLORIDE 0.9% FLUSH 10 ML FLUSH IV FLUSH SCH ×2 (07:27→20:36)
[2018-02-25 07:49] LABS: BICARBONATE 24.1 MEQ/L (21.0-32.0); CALCIUM 8.6 MG/DL (8.5-10.1); CREATININE 1.06 MG/DL (0.60-1.30)
[2018-02-25] MEDS: PRAVASTATIN SOD 40 MG TAB PO SCH (08:53)
[2018-02-25] MEDS: CARVEDILOL 3.125 MG TAB PO SCH ×2 (08:53→20:36)
[2018-02-25] MEDS: FERROUS SULFATE 325 MG (65 MG ELEMENTAL IRON) TAB PO SCH ×2 (08:53→17:14)
[2018-02-25] MEDS: LEVOFLOXACIN 500 MG TAB PO SCH (08:53)
[2018-02-25] MEDS: CLOPIDOGREL 75 MG TAB PO SCH (08:53)
[2018-02-25] MEDS: ENALAPRIL MALEATE 5 MG TAB PO SCH (08:53)
[2018-02-25] MEDS: PANTOPRAZOLE SOD 20 MG DELAYED RELEASE TAB PO SCH (08:53)
[2018-02-25] MEDS: TIMOLOL MALEATE 0.25% OPHT SOLN 5 ML BTL EACH EYE SCH ×2 (08:54→20:36)
[2018-02-25] MEDS ORDERED: SODIUM CHLOR 0.9% 1000 ML INJ 1,000 ML IV SCH (19:30)
--- NOTE | 2018-02-25 19:35 | HHI.PR ---
Subjective Remarks Patient says he is feeling better. Still little nausea, however definitely feeling better. Denies any chest pain or shortness of breath. Denies any palpitations no abdominal pain. Objective Vital Signs Date Time Temp Pulse Resp B/P (MAP) Pulse Ox O2 Delivery O2 Flow Rate FiO2 02/25/18 15:29 98.0 68 20 159/74 (102) 96 02/25/18 12:06 98.4 72 18 122/57 (78) 96 02/25/18 07:03 97.3 62 18 155/71 (99) 94 02/25/18 05:29 98.2 63 16 137/65 (89) 96 02/25/18 00:10 70 02/25/18 00:02 98.3 65 18 135/62 (86) 96 02/24/18 20:44 97.9 68 16 171/75 (107) 96 02/24/18 20:00 71 I/O 02/24/18 02/24/18 02/24/18 02/25/18 02/25/18 02/25/18 07:00 15:00 23:00 07:00 15:00 23:00 Intake Total 500 ml Balance 500 ml Intake IV Total 500 ml Result Diagram: 02/25/1870502/25/18705 Objective Remarks GENERAL: Patient lying in bed. Appears comfortable. SKIN: Warm and dry. HEAD: Normocephalic. EYES: No scleral icterus. No injection or drainage. NECK: Supple, trachea midline. No JVD. CARDIOVASCULAR: Regular rate and rhythm without murmurs, gallops, or rubs. RESPIRATORY: Breath sounds equal bilaterally. No accessory muscle use. GASTROINTESTINAL: Abdomen soft, non-tender, nondistended. MUSCULOSKELETAL: No cyanosis, or edema. BACK: Nontender without obvious deformity. No CVA tenderness. A/P Assessment and Plan //gastritis //possible pancreatitis //near syncope with vomiting, nausea- recent hip fx, r/o pe //Suspect early bronchitis/pneumonia. Patient with increased cough in the past one week. //Cystitis on CT imaging //LBBB.Old. //Dehydration //Old mild aortic stenosis on echocardiogram in December of this year = As far as syncope workup, imaging negative for carotid stenosis. Recently with mild aortic stenosis. Likely patient is dehydrated secondary to nausea and vomiting, as well as UTI. Will continue antibiotics for UTI. We will continue to monitor. Gentle hydration. Follow-up gram-negative rods on urine. Patient high risk for syncope given pre-existing aortic stenosis if UTI untreated htn bph cad cva 2 yrs ago Eliezer Carrizales MD Feb 25, 2018 19:35
[2018-02-25] MEDS: GABAPENTIN 300 MG CAP PO SCH (20:36)
[2018-02-25] MEDS: TAMSULOSIN HCL 0.4 MG CAP PO SCH (20:36)
--- NOTE | 2018-02-25 22:41 | EKG ---
Date Performed: 02/24/2018 Time Performed: 20:56:59 PTAGE: 87 years EKG: Sinus rhythm LEFT BUNDLE BRANCH BLOCK ABNORMAL ECG PREVIOUS TRACING : 02/24/2018 11.16 Since the previous tracing, no significant change noted DOCTOR: Johny Chaves Interpretating Date/Time 02/25/2018 22:41:02
--- NOTE | 2018-02-25 22:44 | EKG ---
Date Performed: 02/24/2018 Time Performed: 17:38:51 PTAGE: 87 years EKG: SINUS BRADYCARDIA LBBBB ABNORMAL ECG Since the PREVIOUS TRACING , no significant change noted DOCTOR: Johny Chaves Interpretating Date/Time 02/25/2018 22:43:47
--- NOTE | 2018-02-25 23:06 | EKG ---
Date Performed: 02/24/2018 Time Performed: 11:16:06 PTAGE: 87 years EKG: SINUS BRADYCARDIA LEFT BUNDLE BRANCH BLOCK ABNORMAL ECG PREVIOUS TRACING : 01/18/2018 12.45 Since the previous tracing, no significant change noted DOCTOR: Johny Chaves Interpretating Date/Time 02/25/2018 23:05:34
[2018-02-26 00:05] VITALS: PULSE 59
[2018-02-26 02:22] VITALS: BP 175/70; PULSE 71; RESP 18; TEMP 98.2; O2SAT 96
[2018-02-26 03:31] VITALS: PULSE 69
[2018-02-26 06:10] VITALS: BP 130/61; PULSE 68; RESP 16; TEMP 97.8; O2SAT 95
[2018-02-26 06:19] LABS: AUTOMATED NEUTROPHIL # 3.8 TH/MM3 (1.8-7.7); BASOPHIL % 0.5 % (0.0-2.0); EOSINOPHIL # 0.1 TH/MM3 (0-0.4); EOSINOPHIL % 1.9 % (0.0-4.0); HEMATOCRIT 29.6 % (39.0-51.0); HEMOGLOBIN 10.2 GM/DL (13.0-17.0); LYMPH % 31.7 % (9.0-44.0); LYMPHOCYTE # 2.2 TH/MM3 (1.0-4.8); MEAN CORPUSCULAR HEMOGLOBIN 30.7 PG (27.0-34.0); MEAN CORPUSCULAR HGB CONC 34.5 % (32.0-36.0); MEAN PLATELET VOLUME 8.1 FL (7.0-11.0); MONO % 10.9 % (0.0-8.0); MONOCYTE # 0.8 TH/MM3 (0-0.9); PLATELET COUNT 228 TH/MM3 (150-450); RED BLOOD COUNT 3.33 MIL/MM3 (4.50-5.90); RED CELL DISTRIBUTION WIDTH 15.4 % (11.6-17.2); WHITE BLOOD COUNT 6.9 TH/MM3 (4.0-11.0)
[2018-02-26] MEDS: ISOSORBIDE MONONITRATE 30 MG CR TAB (IMDUR) PO SCH (06:31)
[2018-02-26 06:52] LABS: ALBUMIN 2.8 GM/DL (3.4-5.0); BICARBONATE 25.7 MEQ/L (21.0-32.0); CALCIUM 8.6 MG/DL (8.5-10.1); CREATININE 1.05 MG/DL (0.60-1.30); MAGNESIUM 1.7 MG/DL (1.5-2.5); PHOSPHORUS 3.1 MG/DL (2.5-4.9)
[2018-02-26 08:23] VITALS: BP 135/67; PULSE 74; RESP 17; TEMP 97.2; O2SAT 97
[2018-02-26] MEDS ORDERED: ASPIRIN EC 81 MG TABEC PO SCH (09:00)
[2018-02-26] MEDS: SODIUM CHLORIDE 0.9% FLUSH 10 ML FLUSH IV FLUSH SCH (09:00)
[2018-02-26] MEDS: PANTOPRAZOLE SOD 20 MG DELAYED RELEASE TAB PO SCH (09:30)
[2018-02-26] MEDS: FERROUS SULFATE 325 MG (65 MG ELEMENTAL IRON) TAB PO SCH (09:30)
[2018-02-26] MEDS: ENALAPRIL MALEATE 5 MG TAB PO SCH (09:30)
[2018-02-26] MEDS: LEVOFLOXACIN 500 MG TAB PO SCH (09:30)
[2018-02-26] MEDS: PRAVASTATIN SOD 40 MG TAB PO SCH (09:30)
[2018-02-26] MEDS: CLOPIDOGREL 75 MG TAB PO SCH (09:30)
[2018-02-26] MEDS: CARVEDILOL 3.125 MG TAB PO SCH (09:30)
[2018-02-26] MEDS: TIMOLOL MALEATE 0.25% OPHT SOLN 5 ML BTL EACH EYE SCH (09:35)
[2018-02-26] MEDS ORDERED: PNEUMOCOCCAL POLYVALENT INJ 25 MCG/0.5 ML SYR IM ONE (10:00)
[2018-02-26] MEDS ORDERED: AMOXICILLIN/CLAVULANATE K 875 MG TAB PO SCH (10:45)
[2018-02-26] MEDS ORDERED: AMOX875T2 PO (11:24)
--- NOTE | 2018-02-26 11:27 | HHI.PR ---
Subjective Remarks Patient says he is feeling well. Denies any chest pain or shortness of breath. Denies any dysuria. Objective Vital Signs Date Time Temp Pulse Resp B/P (MAP) Pulse Ox O2 Delivery O2 Flow Rate FiO2 02/26/18 08:23 97.2 74 17 135/67 (89) 97 02/26/18 06:10 97.8 68 16 130/61 (84) 95 02/26/18 03:31 69 02/26/18 02:22 98.2 71 18 175/70 (105) 96 02/26/18 00:05 59 02/25/18 19:36 98.4 74 16 184/79 (114) 97 02/25/18 15:29 98.0 68 20 159/74 (102) 96 02/25/18 12:06 98.4 72 18 122/57 (78) 96 I/O 02/25/18 02/25/18 02/25/18 02/26/18 02/26/18 02/26/18 07:00 15:00 23:00 07:00 15:00 23:00 Output Total 300 ml Balance -300 ml Output Urine Total 300 ml Result Diagram: 02/26/18 0532 02/26/18 0532 Objective Remarks GENERAL: Patient lying in bed. Appears comfortable. No change on exam SKIN: Warm and dry. HEAD: Normocephalic. EYES: No scleral icterus. No injection or drainage. NECK: Supple, trachea midline. No JVD. CARDIOVASCULAR: Regular rate and rhythm without murmurs, gallops, or rubs. RESPIRATORY: Breath sounds equal bilaterally. No accessory muscle use. GASTROINTESTINAL: Abdomen soft, non-tender, nondistended. MUSCULOSKELETAL: No cyanosis, or edema. BACK: Nontender without obvious deformity. No CVA tenderness. A/P Assessment and Plan //gastritis //possible pancreatitis //near syncope with vomiting, nausea- recent hip fx, r/o pe //Suspect early bronchitis/pneumonia. Patient with increased cough in the past one week. //Cystitis on CT imaging //LBBB.Old. //Dehydration //Old mild aortic stenosis on echocardiogram in December of this year = As far as syncope workup, imaging negative for carotid stenosis. Recently with mild aortic stenosis. Likely patient is dehydrated secondary to nausea and vomiting, as well as UTI. Will continue antibiotics for UTI. We will continue to monitor. Gentle hydration. Follow-up gram-negative rods on urine. Patient high risk for syncope given pre-existing aortic stenosis if UTI untreated = 02/26. ESBL E. coli UTI. Start on Augmentin. htn bph cad cva 2 yrs ago Discharge Planning disCharge back to Eliezer Valles MD Feb 26, 2018 11:27
--- NOTE | 2018-02-26 11:29 | HHI.DS ---
Discharge Summary Admission Date Feb 24, 2018 at 14:06 Discharge Date: Feb 26, 2018 Admitting Diagnosis syncope, abdominal pain Brief History - From Admission History from patient, ER physician communication, and review of medical records. Patient reported that he went to his orthopedics clinic today. He has had a left hip fracture which was nonsurgical and he was going there for follow-up. While at the clinic, he started having blurry vision, felt extremely nauseous, with severe headaches. He stated he then vomited a few times there. The office therefore called 911. Patient denies any pains in his chest. He reports that his pain is in his abdomen pointing to his mid epigastric area. He reports his vomitus was green in color. Denies any diarrhea or constipation. Denies fever. Patient reports he lives at [facility] for the past 2 years. He was there about 5 years ago for rehabilitation after hospital discharge as well. On review of system, patient denies any other symptoms apart from above. CBC/BMP: 02/26/18 0532 02/26/18 0532 Significant Findings Laboratory Tests Test 02/24/18 11:35 02/24/18 14:59 02/24/18 20:06 02/24/18 21:06 Red Blood Count 3.61 MIL/MM3 (4.50-5.90) Hemoglobin 11.0 GM/DL (13.0-17.0) Hematocrit 32.6 % (39.0-51.0) Monocytes (%) (Auto) 10.5 % (0.0-8.0) D-Dimer Quantitative (PE/DVT) 2.54 MG/L FEU (0.00-0.50) Blood Urea Nitrogen 26 MG/DL (7-18) Random Glucose 132 MG/DL (74-106) Chloride Level 111 MEQ/L (98-107) Estimat Glomerular Filtration Rate 53 ML/MIN (>89) Total Creatine Kinase 26 U/L (39-308) 26 U/L (39-308) Urine Turbidity HAZY (CLEAR) Urine Ketones TRACE mg/dL (NEG) Urine Occult Blood SMALL (NEG) Urine Nitrite POS (NEG) Urine Leukocyte Esterase LARGE (NEG) Urine RBC 16 /hpf (0-3) Urine WBC 102 /hpf (0-5) Urine Bacteria MANY /hpf (NONE) Urine Mucus FEW /lpf (OCC) Test 02/25/18 07:06 02/26/18 05:32 Red Blood Count 3.46 MIL/MM3 (4.50-5.90) 3.33 MIL/MM3 (4.50-5.90) Hemoglobin 10.6 GM/DL (13.0-17.0) 10.2 GM/DL (13.0-17.0) Hematocrit 31.1 % (39.0-51.0) 29.6 % (39.0-51.0) Monocytes (%) (Auto) 10.2 % (0.0-8.0) 10.9 % (0.0-8.0) Blood Urea Nitrogen 23 MG/DL (7-18) Chloride Level 111 MEQ/L (98-107) 111 MEQ/L (98-107) Estimat Glomerular Filtration Rate 66 ML/MIN (>89) 67 ML/MIN (>89) Albumin 2.8 GM/DL (3.4-5.0) Hospital Course //gastritis //possible pancreatitis //near syncope with vomiting, nausea- recent hip fx, r/o pe //Suspect early bronchitis/pneumonia. Patient with increased cough in the past one week. //Cystitis on CT imaging //LBBB.Old. //Dehydration //Old mild aortic stenosis on echocardiogram in December of this year = As far as syncope workup, imaging negative for carotid stenosis. Recently with mild aortic stenosis. Likely patient is dehydrated secondary to nausea and vomiting, as well as UTI. Will continue antibiotics for UTI. We will continue to monitor. Gentle hydration. Follow-up gram-negative rods on urine. Patient high risk for syncope given pre-existing aortic stenosis if UTI untreated = 02/26. ESBL E. coli UTI. Start on Augmentin. htn bph cad cva 2 yrs ago Discharge Planning disCharge back to Eliezer Valles MD Feb 26, 2018 11:27 Pt Condition on Discharge: Good Discharge Disposition: ACLF/SELMA Discharge Time: > 30 minutes Discharge Instructions DIET: Follow Instructions for: Heart Healthy Diet Activities you can perform: Regular-No Restrictions Follow up Referrals: PCP Follow-up - 3-5 Days New Medications: Amoxicillin-Clavulanate (Amoxicillin-Clavulanate) 875-125 mg Tab 875 MG PO Q12HR for UTI for 10 Days, TAB not for use in CrCl <30 mL/minute Continued Medications: Carvedilol (Coreg) 3.125 Mg Tab 3.125 MG PO Q12HR for cad, #60 TAB 0 Refills Clopidogrel (Plavix) 75 Mg Tab 75 MG PO DAILY for Blood Clot Prevention, #30 TAB 0 Refills Enalapril (Enalapril) 5 Mg Tab 5 MG PO DAILY, TAB 0 Refills Epinephrine Inj (Epinephrine Inj) 1 Mg/Ml (1 Ml) Inj 0.3 MG SQ ONCE PRN for ALLERGIC REACTION, #1 VIAL Give with any signs of respiratory distress. Ferrous Sulfate (Ferrous Sulfate) 325 Mg (65 Mg Iron) Tablet 325 MG PO BIDPC for Nutritional Supplement, #60 TAB 0 Refills Gabapentin (Gabapentin) 300 Mg Cap 300 MG PO HS, #30 CAP 0 Refills Isosorbide Mononitrate ER (Isosorbide Mononitrate ER) 30 Mg Martha 30 MG PO DAILY@07 for CAD, #30 TAB 0 Refills Omeprazole (Omeprazole) 20 Mg Tab 20 MG PO DAILY, #30 TAB 0 Refills Pravastatin (Pravachol) 40 Mg Tab 40 MG PO DAILY for Cholesterol Management, TAB 0 Refills Tamsulosin (Flomax) 0.4 Mg Cap 0.4 MG PO HS for Manage Prostate Problems, CAP 0 Refills Timolol Opth Drops (Timolol Opth Drops) 0.25 % Soln 1 DROP EACH EYE BID for Glaucoma Eliezer Carrizales MD Feb 26, 2018 11:29
[2018-02-26 13:21] VITALS: BP 161/68; PULSE 68; RESP 17; TEMP 98.1; O2SAT 96
== END 2018-02-26 17:38 | disposition home or self-care (01) ==
LOC: NEPE 11:09 → NEDA 14:06 → NEPFCDU 16:55
PROVIDERS: ADMIT Internal Medicine; ATTEND Internal Medicine
DX: K29.70 Gastritis, unspecified, without bleeding (principal); E86.0 Dehydration; R00.1 Bradycardia, unspecified; R94.31 Abnormal electrocardiogram [ECG] [EKG]; N30.90 Cystitis, unspecified without hematuria; B96.20 Unspecified Escherichia coli [E. coli] as the cause of diseases classified elsewhere; Z16.12 Extended spectrum beta lactamase (ESBL) resistance; R55 Syncope and collapse; R05 Cough; I44.7 Left bundle-branch block, unspecified; I25.10 Atherosclerotic heart disease of native coronary artery without angina pectoris; I10 Essential (primary) hypertension; E78.00 Pure hypercholesterolemia, unspecified; E11.9 Type 2 diabetes mellitus without complications; I35.0 Nonrheumatic aortic (valve) stenosis; F31.9 Bipolar disorder, unspecified; F03.90 Unspecified dementia, unspecified severity, without behavioral disturbance, psychotic disturbance, mood disturbance, and anxiety; F32.9 Major depressive disorder, single episode, unspecified; N40.0 Benign prostatic hyperplasia without lower urinary tract symptoms; M19.90 Unspecified osteoarthritis, unspecified site; Z86.73 Personal history of transient ischemic attack (TIA), and cerebral infarction without residual deficits; Z23 Encounter for immunization
CPT/HCPCS: 70450; 71045; 74176; 78582; 80048; 80069; 81001; 82550; 83690; 83735; 84484; 85025; 85379; 85610; 87077; 87086; 87186; 90732; 93005; 93880; 96360; 96361; 97162; 99285; A9540; A9567; G0009; G0378; G8987; G8988; J7030; J7040; 90471